=== PATIENT | male | born 1940 | race Caucasian/White ===

== ENCOUNTER → 2016-09-13 | Outpatient (REF) | payer MEDICARE, OTHER ==
[~2016-09-13] MED LIST: /GLIP10TAB OR; /PANT40TA OR; /WARF25TA OR; ACET65TA OR; ALBU17IN2 IN; ALLO100T OR; ASPI81TA83 OR; BABY81CH OR; COLA100C2 OR; CRES20TA OR; CRES40TA OR; DIOV80TA OR; HYDROCORTISONE TOP; JANUVIA PO; LASI40TA OR; LIDO5DIS EX; LOPR50TA OR; METO50TA4 OR; PERC5TAB8 OR; SYMB80AE INH; TOPR50TA OR; TRIC145T19 OR; VICO5TAB OR; VITA100T OR
== END ==
LOC: M LAB REF 10:35
PROVIDERS: ATTEND Surgery
DX: R19.7 Diarrhea, unspecified (principal)

== ENCOUNTER → 2016-09-25 | Outpatient (CLI) | payer MEDICARE, OTHER ==
[~2016-09-25] MED LIST changes: +ANDR4DIS TD; +ASPI1TAB PO; +CLOB0.0526 EX; +COLA100C3 PO; +COUM2.5T11 PO; +CYAN1000VL IM; +EUCR2OIN EX; +FENO145T PO; +GLIP10TA6 PO; +LASI40TA PO; +LIDO1PAD EX; +METO-207 PO; +PROT1TAB2 PO; +ROBA500T PO; +ROSU20TA PO; +SILD20TA11 PO; +SITA50TAB PO; +SYMB16INH INH; +TYLE325T5 PO; +VALS80TA PO
[2016-09-25 13:29] LABS: CALCIUM LEVEL 8.9 MG/DL (8.8-10.2); CREATININE FOR GFR 1.41 MG/DL (0.70-1.30); GLOMERULAR FILTRATION RATE 52.3 (>42)
--- NOTE | 2016-09-26 20:43 | ECGEPIP ---
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 Ventricular paced rhythm, one PVC. Electronically Signed On 09-26-2016 20:43:32 EDT by Vinod Mcneill
== END ==
LOC: M LAB 12:27
PROVIDERS: ATTEND Ophthalmology
DX: H25.12 Age-related nuclear cataract, left eye (principal); E11.9 Type 2 diabetes mellitus without complications

== ENCOUNTER → 2016-09-25 | Outpatient (REF) | payer MEDICARE, OTHER ==
[~2016-09-25] MED LIST changes: +WARF-18 PO
== END ==
LOC: M SMT 13:04
PROVIDERS: ATTEND Nurse Practitioner Family
DX: N39.41 Urge incontinence (principal); H25.12 Age-related nuclear cataract, left eye; E11.9 Type 2 diabetes mellitus without complications
CPT/HCPCS: 36415; 51798; 80048; 81001; 87086; 93005; G0463

== ENCOUNTER → 2016-09-26 | Outpatient (CLI) | payer MEDICARE, OTHER ==
[~2016-09-26] VITALS: Ht 190.5 cm; Wt 117.9 kg
[~2016-09-26] MED LIST changes: +NS 1,000 ML IV ONE; +PROPOFOL 200 MG/20 ML VIAL As Ordered ONE; -WARF-18 PO
--- NOTE | 2016-09-26 09:57 | ROOR ---
Patient Name: Anthony Gauthier Procedure Date: 09/26/2016 9:26 AM Date of : 1940 Age: 76 Room: [facility] Gender: Male Note Status: Finalized Procedure: Colonoscopy Indications: Chronic diarrhea Providers: Baljit Noble Jr, MD Referring MD: Eula Hartman DO Requesting Provider: Medicines: Propofol per Anesthesia Complications: No immediate complications. Procedure: Pre-Anesthesia Assessment: - Prior to the procedure, a History and Physical was performed, and patient medications and allergies were reviewed. The patient is competent. The risks and benefits of the procedure and the sedation options and risks were discussed with the patient. All questions were answered and informed consent was obtained. Patient identification and proposed procedure were verified by the physician and the nurse in the pre-procedure area and in the procedure room. Mental Status Examination: alert and oriented. Airway Examination: normal oropharyngeal airway and neck mobility. Respiratory Examination: clear to auscultation. CV Examination: normal. ASA Grade Assessment: II - A patient with mild systemic disease. After reviewing the risks and benefits, the patient was deemed in satisfactory condition to undergo the procedure. The anesthesia plan was to use moderate sedation / analgesia (conscious sedation). Immediately prior to administration of medications, the patient was re-assessed for adequacy to receive sedatives. The heart rate, respiratory rate, oxygen saturations, blood pressure, adequacy of pulmonary ventilation, and response to care were monitored throughout the procedure. The physical status of the patient was re-assessed after the procedure. The Colonoscope was introduced through the anus and advanced to the cecum, identified by appendiceal orifice and ileocecal valve. The colonoscopy was performed without difficulty. The patient tolerated the procedure well. The quality of the bowel preparation was adequate and fair. Findings: The perianal exam findings include non-thrombosed external hemorrhoids, non-thrombosed internal hemorrhoids, internal hemorrhoids that prolapse with straining, but spontaneously regress to the resting position (Grade II) and internal hemorrhoids that prolapse with straining, but require manual replacement into the anal canal (Grade III). Multiple small and large-mouthed diverticula were found in the sigmoid colon and descending colon. Many small and large-mouthed diverticula were found in the transverse colon and ascending colon. The rectum, recto-sigmoid colon, appendiceal orifice and ileocecal valve appeared normal. A small polyp was found in the ascending colon. The polyp was removed with a jumbo cold forceps. Resection and retrieval were complete. Impression: - Preparation of the colon was fair. - Non-thrombosed external hemorrhoids, non-thrombosed internal hemorrhoids, internal hemorrhoids that prolapse with straining, but spontaneously regress to the resting position (Grade II) and internal hemorrhoids that prolapse with straining, but require manual replacement into the anal canal (Grade III) found on perianal exam. - Diverticulosis in the sigmoid colon and in the descending colon. - Diverticulosis in the transverse colon and in the ascending colon. - The rectum, recto-sigmoid colon, appendiceal orifice and ileocecal valve are normal. - One small polyp in the ascending colon, removed with a jumbo cold forceps. Resected and retrieved. Recommendation: - Repeat colonoscopy in 5-10 years for surveillance based on pathology results. Baljit Noble MD Baljit Noble Jr, MD 09/26/2016 9:57:02 AM This report has been signed electronically. Number of Addenda: 0 Note Initiated On: 09/26/2016 9:26 AM Estimated Blood Loss: Estimated blood loss: none.
[2016-09-26 10:15] VITALS: BP 169/89
== END | disposition home or self-care (01) ==
LOC: M OPP 08:16
PROVIDERS: ATTEND Surgery
DX: R19.7 Diarrhea, unspecified (principal); D12.2 Benign neoplasm of ascending colon; K64.2 Third degree hemorrhoids; K64.1 Second degree hemorrhoids; K64.4 Residual hemorrhoidal skin tags; K57.30 Diverticulosis of large intestine without perforation or abscess without bleeding; I48.91 Unspecified atrial fibrillation; I25.10 Atherosclerotic heart disease of native coronary artery without angina pectoris; I12.9 Hypertensive chronic kidney disease with stage 1 through stage 4 chronic kidney disease, or unspecified chronic kidney disease; E78.5 Hyperlipidemia, unspecified; R60.0 Localized edema; E11.9 Type 2 diabetes mellitus without complications; K74.60 Unspecified cirrhosis of liver; R12 Heartburn; M19.90 Unspecified osteoarthritis, unspecified site; M54.9 Dorsalgia, unspecified; M25.60 Stiffness of unspecified joint, not elsewhere classified; Z86.73 Personal history of transient ischemic attack (TIA), and cerebral infarction without residual deficits; J44.9 Chronic obstructive pulmonary disease, unspecified; G47.30 Sleep apnea, unspecified; R06.83 Snoring; R06.02 Shortness of breath; N18.9 Chronic kidney disease, unspecified; Z95.5 Presence of coronary angioplasty implant and graft; Z95.810 Presence of automatic (implantable) cardiac defibrillator; F17.210 Nicotine dependence, cigarettes, uncomplicated; Z79.01 Long term (current) use of anticoagulants; Z79.84 Long term (current) use of oral hypoglycemic drugs; Z79.899 Other long term (current) drug therapy

== ENCOUNTER → 2016-10-10 | Day surgery (SDC) | payer MEDICARE, OTHER ==
[~2016-10-10] VITALS: Ht 190.5 cm; Wt 117.9 kg
[~2016-10-10] MED LIST changes: +ACETYLCHOLINE OPHTH SOLN 1% 2ML (MIOCHOL-E) As Ordered ONE; +BALANCED SALT IRRIGATION SOLUTION 500ML BAG (FOR OR EYE MACHINE) As Ordered ONE; +CEFUROXIME 1MG/0.1ML INTRACAMERAL INJ As Ordered ONE; +CYCLOPENTOLATE 2% OPHTH SOLN 2ML BTL OS SCH; +HEALON DUET (HEALON 10MG/ML 0.55ML & HEALON ENDOCOAT 30MG/ML 0.85ML) As Ordered ONE; +LIDOCAINE 0.75%/EPINEPHRINE 0.025% IN BSS 1ML SYR INTRACAMERAL (OR ONLY) As Ordered ONE; +LR 500 ML IV ONE; +MIDAZOLAM INJ 2 MG/2 ML VIAL (J2250) As Ordered ONE; -NS 1,000 ML IV ONE; +OFLOXACIN 0.3 % (OCUFLOX) OPTH SOL 5ML OS ONE; +PHENYLEPHRINE 2.5% OPHTH SOL 2ML OS ONE; +POVIDONE-IODINE 5% OPHTH PREP SOL 30ML As Ordered ONE; +PROPARACAINE 0.5% OPHTH SOL 15ML OS ONE; -PROPOFOL 200 MG/20 ML VIAL As Ordered ONE; +TOBRADEX OPHTH OINT 3.5 GM As Ordered ONE; +TROPICAMIDE 1% OPHTH SOLN 2ML OS ONE; +WARF-18 PO; +fentaNYL 100 MCG/2 ML INJECTION (J3010) As Ordered ONE
[2016-10-10 10:20] VITALS: BP 138/63
--- NOTE | 2016-10-11 08:00 | RO ---
DATE OF PROCEDURE: 10/10/2016 PREOPERATIVE DIAGNOSIS: Visually significant nuclear sclerotic cataract left eye. POSTOPERATIVE DIAGNOSIS: Visually significant nuclear sclerotic cataract left eye. PROCEDURE: Cataract extraction with use of phacoemulsification, and placement of intraocular lens, AU00T0, 19.0 Diopter, left eye. SURGEON: Sky Cook DO ENVIRONMENTAL MONITORING SPECIALIST: ANESTHESIA: Local with monitored anesthesia care (MAC). COMPLICATIONS: None. POSTOPERATIVE CONDITION: Stable. INDICATION FOR SURGERY: Blurred vision left eye affecting patient's activities of daily living. DESCRIPTION OF PROCEDURE: The patient was seen in the preoperative area and properly identified. The correct operative eye was identified and marked. Attention was turned to that eye. The patient received topical antibiotics in the preoperative area. The patient then received topical dilating drops consisting of Tropicamide and Phenylephrine. The patient was then transferred to the operating room. The correct side was re-identified. The patient received topical anesthetics and antibiotics on the surface of the eye. The eye was prepped and draped in a sterile fashion. The upper and lower eyelids were isolated with Tegaderm tape, and the lids were held open with an adjustable speculum. Using a sideport blade, a paracentesis incision was made. Intraocular preservative-free lidocaine was then injected into the anterior chamber. Viscoelastic was then injected into the anterior chamber through the paracentesis. Using a 2.6 mm sharp-tipped keratome, the anterior chamber was entered via a temporal clear corneal incision. A continuous curvilinear capsulorrhexis was created with the aid of a 26g cystotome and utrata forceps. Hydrodissection was performed with balanced salt solution (BSS) on a blunt cannula until the nucleus was freely mobile. The crystalline lens was phacoemulsified and aspirated. Additional cohesive viscoelastic was placed into the capsular bag to deepen it. AU00T0, 19.0 Diopter lens was placed into the capsular bag and confirmed by visualizing the continuous curvilinear capsulorrhexis. Additional irrigation and aspiration was used to remove cortical material and remaining viscoelastic. The clear corneal incision was hydrated with BSS on a blunt cannula. The lens was well positioned. The incisions were then tested for leaks and found to be negative. The eye was then palpated for appropriate pressure and adjusted accordingly with BSS. The eyelid speculum was carefully removed. A shield was placed over the eye. The patient tolerated the procedure well and was discharged to the recovery unit in a stable condition. YANG
== END | disposition home or self-care (01) ==
LOC: M SDC 07:51
PROVIDERS: ATTEND Ophthalmology
DX: H25.12 Age-related nuclear cataract, left eye (principal); I48.91 Unspecified atrial fibrillation; I25.10 Atherosclerotic heart disease of native coronary artery without angina pectoris; I50.9 Heart failure, unspecified; I10 Essential (primary) hypertension; Z98.61 Coronary angioplasty status; Z95.0 Presence of cardiac pacemaker; Z95.810 Presence of automatic (implantable) cardiac defibrillator; J44.9 Chronic obstructive pulmonary disease, unspecified; E78.5 Hyperlipidemia, unspecified; Z79.01 Long term (current) use of anticoagulants; Z79.899 Other long term (current) drug therapy
CPT/HCPCS: 66984; J2250; J3010; V2632

== ENCOUNTER → 2016-10-31 | Day surgery (SDC) | payer MEDICARE, OTHER ==
[~2016-10-31] VITALS: Ht 193 cm; Wt 117.9 kg
[~2016-10-31] MED LIST changes: -ACETYLCHOLINE OPHTH SOLN 1% 2ML (MIOCHOL-E) As Ordered ONE; +ASPI325T PO; -BALANCED SALT IRRIGATION SOLUTION 500ML BAG (FOR OR EYE MACHINE) As Ordered ONE; -CEFUROXIME 1MG/0.1ML INTRACAMERAL INJ As Ordered ONE; -COLA100C3 PO; +COLA100C5 PO; +COUM1TAB17 PO; -COUM2.5T11 PO; +COUM2.5T17 PO; +CRES40TA PO; -CYCLOPENTOLATE 2% OPHTH SOLN 2ML BTL OS SCH; +DICL1GEL TD; +GLIP1TAB51 PO; -HEALON DUET (HEALON 10MG/ML 0.55ML & HEALON ENDOCOAT 30MG/ML 0.85ML) As Ordered ONE; +K-TA10TA2 PO; -LIDOCAINE 0.75%/EPINEPHRINE 0.025% IN BSS 1ML SYR INTRACAMERAL (OR ONLY) As Ordered ONE; -LR 500 ML IV ONE; -METO-207 PO; +METO1TAB7 PO; +NIAC1TAB PO; +NITR0.4S14 SL; -OFLOXACIN 0.3 % (OCUFLOX) OPTH SOL 5ML OS ONE; -PHENYLEPHRINE 2.5% OPHTH SOL 2ML OS ONE; -POVIDONE-IODINE 5% OPHTH PREP SOL 30ML As Ordered ONE; -PROPARACAINE 0.5% OPHTH SOL 15ML OS ONE; -TOBRADEX OPHTH OINT 3.5 GM As Ordered ONE; +TRIC145T22 PO; -TROPICAMIDE 1% OPHTH SOLN 2ML OS ONE; +oxygen
[2016-10-31] MEDS: PHENYLEPHRINE 2.5% OPHTH SOL 2ML OD ONE (14:12)
[2016-10-31] MEDS: OFLOXACIN 0.3 % (OCUFLOX) OPTH SOL 5ML OD ONE (14:12)
[2016-10-31] MEDS: TROPICAMIDE 1% OPHTH SOLN 2ML OD ONE (14:12)
[2016-10-31] MEDS: PROPARACAINE 0.5% OPHTH SOL 15ML OD ONE (14:12)
[2016-10-31] MEDS: LR 500 ML IV ONE (14:13)
[2016-10-31] MEDS: BALANCED SALT IRRIGATION SOLUTION 500ML BAG (FOR OR EYE MACHINE) As Ordered ONE (14:32)
[2016-10-31] MEDS: ACETYLCHOLINE OPHTH SOLN 1% 2ML (MIOCHOL-E) As Ordered ONE (14:35)
[2016-10-31] MEDS: CEFUROXIME 1MG/0.1ML INTRACAMERAL INJ As Ordered ONE (14:35)
[2016-10-31] MEDS: LIDOCAINE 0.75%/EPINEPHRINE 0.025% IN BSS 1ML SYR INTRACAMERAL (OR ONLY) As Ordered ONE (14:35)
[2016-10-31] MEDS: POVIDONE-IODINE 5% OPHTH PREP SOL 30ML As Ordered ONE (14:35)
[2016-10-31] MEDS: DUOVISC (0.50ML VISCOAT/0.55ML PROVISC) OPHTH KIT As Ordered ONE (14:36)
[2016-10-31 15:30] VITALS: BP 191/94
--- NOTE | 2016-11-04 16:32 | RO ---
DATE OF PROCEDURE: 10/31/2016 PREOPERATIVE DIAGNOSIS: Visually significant nuclear sclerotic cataract right eye. POSTOPERATIVE DIAGNOSIS: Visually significant nuclear sclerotic cataract right eye. PROCEDURE: Cataract extraction with use of phacoemulsification, and placement of intraocular lens, AU00T0, 19.5D, right eye. SURGEON: Sky Cook DO MANAGER OF MEDICAL: ANESTHESIA: Local with monitored anesthesia care (MAC). COMPLICATIONS: None. POSTOPERATIVE CONDITION: Stable. INDICATION FOR SURGERY: Blurred vision right eye affecting patient's activities of daily living. DESCRIPTION OF PROCEDURE: The patient was seen in the preoperative area and properly identified. The correct operative eye was identified and marked. Attention was turned to that eye. The patient received topical antibiotics in the preoperative area. The patient then received topical dilating drops consisting of Tropicamide and Phenylephrine. The patient was then transferred to the operating room. The correct side was re-identified. The patient received topical anesthetics and antibiotics on the surface of the eye. The eye was prepped and draped in a sterile fashion. The upper and lower eyelids were isolated with Tegaderm tape, and the lids were held open with an adjustable speculum. Using a sideport blade, a paracentesis incision was made. Intraocular preservative-free lidocaine was then injected into the anterior chamber. Viscoelastic was then injected into the anterior chamber through the paracentesis. Using a 2.6 mm sharp-tipped keratome, the anterior chamber was entered via a temporal clear corneal incision. A continuous curvilinear capsulorrhexis was created with the aid of a 26g cystotome and utrata forceps. Hydrodissection was performed with balanced salt solution (BSS) on a blunt cannula until the nucleus was freely mobile. The crystalline lens was phacoemulsified and aspirated. Additional cohesive viscoelastic was placed into the capsular bag to deepen it. An AU00T0, 19.5D lens was placed into the capsular bag and confirmed by visualizing the continuous curvilinear capsulorrhexis. Additional irrigation and aspiration was used to remove cortical material and remaining viscoelastic. The clear corneal incision was hydrated with BSS on a blunt cannula. The lens was well positioned. The incisions were then tested for leaks and found to be negative. The eye was then palpated for appropriate pressure and adjusted accordingly with BSS. The eyelid speculum was carefully removed. A shield was placed over the eye. The patient tolerated the procedure well and was discharged to the recovery unit in a stable condition. YANG
== END | disposition home or self-care (01) ==
LOC: M SDC 13:03
PROVIDERS: ATTEND Ophthalmology
DX: H25.11 Age-related nuclear cataract, right eye (principal); E11.39 Type 2 diabetes mellitus with other diabetic ophthalmic complication; I12.9 Hypertensive chronic kidney disease with stage 1 through stage 4 chronic kidney disease, or unspecified chronic kidney disease; H35.30 Unspecified macular degeneration; I48.91 Unspecified atrial fibrillation; I25.10 Atherosclerotic heart disease of native coronary artery without angina pectoris; E78.00 Pure hypercholesterolemia, unspecified; R60.0 Localized edema; M10.9 Gout, unspecified; K76.9 Liver disease, unspecified; K21.9 Gastro-esophageal reflux disease without esophagitis; M12.9 Arthropathy, unspecified; M54.9 Dorsalgia, unspecified; R29.898 Other symptoms and signs involving the musculoskeletal system; R06.83 Snoring; R06.02 Shortness of breath; G47.30 Sleep apnea, unspecified; F17.290 Nicotine dependence, other tobacco product, uncomplicated; N18.3 Chronic kidney disease, stage 3 (moderate); E11.21 Type 2 diabetes mellitus with diabetic nephropathy; J44.1 Chronic obstructive pulmonary disease with (acute) exacerbation; I13.0 Hypertensive heart and chronic kidney disease with heart failure and stage 1 through stage 4 chronic kidney disease, or unspecified chronic kidney disease; I50.22 Chronic systolic (congestive) heart failure; Z79.899 Other long term (current) drug therapy; Z79.01 Long term (current) use of anticoagulants; Z86.73 Personal history of transient ischemic attack (TIA), and cerebral infarction without residual deficits; Z87.81 Personal history of (healed) traumatic fracture; Z95.5 Presence of coronary angioplasty implant and graft; Z95.810 Presence of automatic (implantable) cardiac defibrillator
CPT/HCPCS: 66984; J2250; J3010; V2632

== ENCOUNTER → 2016-11-07 | Outpatient (CLI) | payer MEDICARE, OTHER ==
[~2016-11-07] MED LIST changes: -MIDAZOLAM INJ 2 MG/2 ML VIAL (J2250) As Ordered ONE; -fentaNYL 100 MCG/2 ML INJECTION (J3010) As Ordered ONE
== END ==
LOC: M SMT PRO 09:50
PROVIDERS: ATTEND Urology
DX: N52.9 Male erectile dysfunction, unspecified (principal)
CPT/HCPCS: 54235; 93980; G0463

== ENCOUNTER 2016-11-17 18:23 | Inpatient (IN) | payer MEDICARE, OTHER ==
[~2016-11-17] VITALS: Ht 193 cm; Wt 117.1 kg
[2016-11-17] MEDS: ROSUVASTATIN 10 MG TAB (CRESTOR) PO SCH (02:00)
[~2016-11-17 18:23] MED LIST changes: -ASPI325T PO; -COUM1TAB17 PO; -CRES40TA PO; -DICL1GEL TD; -GLIP1TAB51 PO; -K-TA10TA2 PO; -NIAC1TAB PO; -NITR0.4S14 SL; -TRIC145T22 PO; -oxygen
[2016-11-17] MEDS ORDERED: K-TA10TA2 PO (18:42)
[2016-11-17] MEDS ORDERED: GLIP1TAB51 PO (18:42)
[2016-11-17] MEDS ORDERED: NITR0.4S14 SL (18:52)
[2016-11-17] MEDS ORDERED: CRES40TA PO (18:52)
[2016-11-17] MEDS ORDERED: TRIC145T22 PO (18:52)
[2016-11-17] MEDS ORDERED: oxygen (18:52)
[2016-11-17] MEDS ORDERED: NIAC1TAB PO (18:52)
[2016-11-17] MEDS ORDERED: ASPI1TAB PO (18:52)
[2016-11-17] MEDS ORDERED: COUM2.5T17 PO (18:52)
--- NOTE | 2016-11-17 19:20 | REPUSA ---
CT of the head Clinical history: Headache. Protocol: Multiple axial CT images obtained with 5 mm slice thickness were obtained through the head without administration of contrast. Findings: The ventricles and sulci are symmetric but prominent in size bilaterally. There are periven tricular areas of low attenuation throughout the deep white matter. There is no evidence of acute hem orrhage or infarct. There is no midline shift, mass effect, or extra-axial fluid collection. The osse ous structures are unremarkable. The visualized paranasal sinuses and mastoid air cells are clear. Impression: No acute hemorrhage or infarct. Findings are consistent with mild age-related atrophy and chronic small vessel ischemic disease.
[2016-11-17 19:24] LABS: EOS # 0.1 K/mm3 (0.0-0.50); LARGE UNSTAINED CELL # 0.1 K/mm3 (0.0-0.4); LARGE UNSTAINED CELL % 2.6 % (0.0-4.0); LYMPH # 1.4 K/mm3 (1.5-4.5); LYMPH % 24.6 % (24.0-44.0); MEAN CORPUSCULAR HEMOGLOBIN 32.8 pg (27.0-33.0); MEAN CORPUSCULAR HGB CONC 35.2 g/dl (32.0-36.5); MEAN CORPUSCULAR VOLUME 93.4 fl (80.0-96.0); MONO # 0.4 K/mm3 (0.0-0.8); MONO % 7.7 % (0.0-5.0); NEUTROPHILS # 3.2 K/mm3 (1.8-7.7); NEUTROPHILS % 62.1 % (36.0-66.0); PLATELET COUNT, AUTOMATED 202 k/mm3 (150-450); RED CELL DISTRIBUTION WIDTH 14.4 % (11.5-14.5); WHITE BLOOD COUNT 5.2 K/mm3 (4.0-10.0)
[2016-11-17 19:30] LABS: INR 1.32
[2016-11-17 19:44] LABS: ANION GAP 9 MEQ/L (8-16); BLOOD UREA NITROGEN 19 MG/DL (7-18); CALCIUM LEVEL 9.3 MG/DL (8.8-10.2); CARBON DIOXIDE LEVEL 26 MEQ/L (21-32); CHLORIDE LEVEL 101 MEQ/L (98-107); CREATININE FOR GFR 1.58 MG/DL (0.70-1.30); GLOMERULAR FILTRATION RATE 45.9 (>42); GLUCOSE, FASTING 134 MG/DL (83-110); POTASSIUM SERUM 3.3 MEQ/L (3.5-5.1); SODIUM LEVEL 136 MEQ/L (136-145)
[2016-11-17] MEDS ORDERED: ISOVUE-370 76% 100ML VIAL (Q9967) As Ordered ONE (20:20)
[2016-11-17] MEDS: HumaLOG INSULIN (NovoLOG) PER UNIT SC SCH (21:00)
[2016-11-17] MEDS: SYMBICORT 160/4.5MCG INHALER 6GM INH SCH (21:00)
[2016-11-17] MEDS ORDERED: DICL1GEL TD (21:07)
--- NOTE | 2016-11-17 21:20 | REPUSA ---
Clinical history: CVA. Technique: Multiple axial CT images were obtained through the head after a bolus of nonionic intraven ous contrast. Coronal and sagittal reconstructed images were also obtained. Findings: The intracerebral arterial structures including the [place] demonstrate normal hilda iber and contour. There is no evidence of aneurysm, stenosis, or thrombosis. No abnormal enhancing ma ss lesions are seen within the brain. The ventricles and sulci are symmetric bilaterally. There is no midline shift, mass effect, or extra-axial fluid collection. The osseous structures are unremarkable . The visualized paranasal sinuses and mastoid air cells are clear. Impression: Unremarkable CT angiogram of the head.
[2016-11-17] MEDS ORDERED: WARFARIN SOD 5 MG TAB PO ONE (23:00)
[2016-11-17] MEDS ORDERED: GLUCOSE 4 GM CHEW TABLET PO PRN (23:00)
[2016-11-17] MEDS ORDERED: NS 1,000 ML IV SCH (23:00)
[2016-11-17] MEDS ORDERED: GLUCAGON FOR INJ 1 MG VIAL (J1610) SC PRN (23:00)
[2016-11-17] MEDS ORDERED: DEXTROSE 50% 50 ML SYRINGE IV PRN (23:00)
[2016-11-17] MEDS ORDERED: POTASSIUM CHLORIDE 10 MEQ SR TABLET PO ONE (23:15)
[2016-11-17 23:58] LABS: T UPTAKE 36 % (33-40); THYROXINE (T4) 6.9 UG/DL (4.5-12.0)
[2016-11-18] VITALS (17 sets, daily range): BP systolic 147–195; BP diastolic 67–84; O2SAT 95–99
[2016-11-18] MEDS: ASPIRIN 325 MG TAB PO SCH ×2 (00:02→08:30)
--- NOTE | 2016-11-18 02:25 | HPE ---
DATE OF ADMISSION: 11/17/2016 PRIMARY CARE PROVIDER: Mike Thomas MD. CHIEF COMPLAINT: Expressive aphasia, unable to express himself, altered mental status. HISTORY OF PRESENT ILLNESS: This is a 76-year-old gentleman with underlying medical history of obstructive sleep apnea not complaint with continuous positive airway pressure (CPAP) at home, but is on 5 liters of oxygen at night, coronary arterial disease, atrial fibrillation, with ventricular pacemaker and automatic implantable cardioverter-defibrillator (AICD) function, on Coumadin and aspirin at home, diabetes type 2, dyslipidemia, hypertension, carotid artery disease, chronic kidney disease (CKD) stage III, and gout. Patient presented with acute onset about 2 p.m. earlier in the day of episodes of unable to express himself while having lunch with friends and having beer, did not feel well. Subsequently went home to take a nap and called his sister, who discussed about coming to the hospital. Emergency medical services (EMS) was called and the patient was actually brought here to the hospital by family. Patient reported similar episode 5 years ago with a diagnosis of transient ischemic attack (TIA). In the emergency room, patient remained to be aphasic. Telemedicine stroke center was called. Dr. Luis was called and by the time patient was evaluated, patient has already been 6 hours and 30 minutes out of the window. CT angiography of the head was also done. Patient remained mildly aphasic, but symptom seems to be improving. Denies any motor weakness. Denies any chest pain, pressure or discomfort. Denies any palpitations. Neurology, Dr. Trimble was called. We discussed whether to place the patient on heparin drip or not given patient is subtherapeutic on INR. Dr. Trimble elected to put the patient on full-dose aspirin and dose the Coumadin and followup INR levels. Given the possibility of acute CVA, recommended against putting the patient on heparin drip. ALLERGIES: No known drug allergies. PAST MEDICAL HISTORY: 1. Obstructive sleep apnea on 5 liters of oxygen at night, not using CPAP. 2. Epigastric and umbilical hernia. 3. Coronary arterial disease. 4. Atrial fibrillation. 5. Ventricular pacemaker with AICD and cardiac stents. 6. Diabetes type 2. 7. Obesity. 8. Dyslipidemia. 9. Hypertension. 10. Carotid artery disease. 11. CKD stage III. 12. History of TIA. 13. History of gout. PAST SURGICAL HISTORY: 1. Right hip replacement. 2. Excision of right hip seroma. 3. Cardiac stent. 4. Epigastric and umbilical hernia repair. 5. Right shoulder surgery. 6. Vasectomy. 7. Right carpal tunnel surgery. SOCIAL HISTORY: Smokes cigars for 15 years. Drinks about 1-2 beers per night. Lives at home alone. FAMILY HISTORY: Father from coronary arterial disease at age 50s. Mother from stroke in her 70s. REVIEW OF SYSTEMS: Reported a bit of aphasia, having trouble expressing himself. Otherwise, all other review of systems has been negative. HOME MEDICATIONS: - aspirin 81 mg by mouth daily - Symbicort 160/4.5 inhalation twice a day - cyanocobalamin 1000 mcg intramuscularly (IM) once a month - diclofenac 3% gel transdermally nightly - TriCor 145 mg by mouth daily - Lasix 40 mg by mouth daily as needed - glipizide extended release by mouth twice a day - metoprolol succinate 50 mg by mouth daily - niacin extended release 500 mg by mouth daily - nitroglycerin one tablet sublingual as needed for chest pain - Protonix 40 mg by mouth daily - Crestor 40 mg by mouth daily - sildenafil 20 mg by mouth as needed - Januvia 50 mg by mouth daily - valsartan 80/12.5 mg by mouth twice a day - Coumadin 2.5 mg by mouth Friday, Friday, , Friday PHYSICAL EXAMINATION: VITAL SIGNS: Temperature 96.3, pulse 84, respirations 18, blood pressure 157/73, pulse oximetry 94% on room air. GENERAL: Patient alert and oriented times three, having mild trouble finding words, in no acute distress. HEENT: Normocephalic, atraumatic, obese. PULMONARY: Distant breath sounds, clear to auscultation. CARDIAC: Regular S1, S2. ABDOMEN: Obese, soft, nontender. Positive bowel sounds. EXTREMITIES: No edema bilateral lower extremities. NEUROLOGICAL: Cranial nerves II-XII grossly intact. Having trouble finding words. Finger to nose intact. Bilateral upper and lower motor strength 5/5 symmetrical. Sensation to light touch intact. LABORATORY: WBC 5.2, hemoglobin and hematocrit 14.9/42.5, platelets 202. Chemistry: Sodium 136, potassium 3.2, chloride 101, bicarbonate 26, BUN 19, creatinine 1.58. A1c 6.9. Troponin, cardiac enzymes are negatives times one. TSH 4.83 with a free T4 2.5. INR 1.32. CT scan of the head shows no acute hemorrhage or infarct. Findings consistent with mild age related atrophy and small vessel ischemic disease. CT angiography unremarkable. EKG shows V paced at 73. ASSESSMENT AND PLAN: This is a 76-year-old male patient with underlying medical history of coronary arterial disease, atrial fibrillation, ventricular pacemaker, automatic implantable cardioverter-defibrillator (AICD), with cardiac stents, history of transient ischemic attack (TIA), obstructive sleep apnea on 5 liters of oxygen at night, not on continuous positive airway pressure (CPAP), umbilical hernia, diabetes type 2, dyslipidemia, hypertension, carotid artery disease, right carpal tunnel surgery, chronic kidney disease (CKD), who presented with expressive aphasia, admitted for CVA likely. 1. Expressive aphasia likely secondary to CVA. Telemetry. Cardiac enzymes. Echocardiogram. Neurology, Dr. Trimble consulted. Neurologic checks. Unable to perform MRI given patient has a pacemaker. Repeat CT scan tomorrow. Followup echocardiogram. Carotid Dopplers. CT angiography appreciated. Initially, telemedicine stroke center was contacted. Patient not a candidate for tissue plasminogen activator (tPA). Intravenous (IV) fluids given patient received contrast. Physical therapy, speech and swallow. Permissive hypertension with a goal blood pressure of 140-160 systolic. Followup A1c, lipid panel. Continue aspirin 325. Coumadin 5 mg has been given. Heparin subcutaneously for deep venous thrombosis (DVT) prophylaxis and continue TriCor and statin. Case discussed with Dr. Trimble. Elect not to do heparin drip for anticoagulation given patient possibly has active stroke and risk of intracranial hemorrhage. 2. Hypokalemia. Supplement potassium. 3. Hypertension. Given the possibility of active CVA, will hold patient's hydrochlorothiazide. Continue valsartan. Blood pressure goal of 140-160 systolic and 80-100 diastolic. Continue metoprolol with holding parameter as well. 4. Type 2 diabetes with obesity. Holding oral medications. Insulin as per protocol. 5. Dyslipidemia. Continue statin. 6. Obstructive sleep apnea. Obstructive sleep apnea (LISA) protocol. Continuous pulse oximetry. Oxygen supplementation as needed. 7. Carotid artery disease. Carotid Doppler. Will consult vascular as needed. 8. CKD. Patient has received a dose of contrast. Followup BUN and creatinine. Intravenous (IV) fluids have been ordered for renal protective. 9. Atrial fibrillation. Continue beta sanya. Telemetry. Coumadin dosage has been increased. Followup international normalized ratio (INR). 10. DVT prophylaxis. Heparin subcutaneously. DISPOSITION PLANNING: Neurologic checks. Stroke workup. Physical therapy. Speech and swallow. Neurology consultation. Repeat CT scan. Carotid Doppler and echocardiogram. Pending clinical improvement. Will follow INR.
[2016-11-18] MEDS: amLODIPine 5 MG TAB PO SCH ×2 (04:41→08:29)
[2016-11-18] MEDS: HEPARIN SOD (PORCINE) 5000 UNITS/ML VIAL SQ SCH ×3 (05:40→21:15)
[2016-11-18 06:05] LABS: MEAN CORPUSCULAR HEMOGLOBIN 32.5 pg (27.0-33.0); MEAN CORPUSCULAR HGB CONC 34.7 g/dl (32.0-36.5); MEAN CORPUSCULAR VOLUME 93.7 fl (80.0-96.0); RED CELL DISTRIBUTION WIDTH 14.3 % (11.5-14.5); WHITE BLOOD COUNT 5.3 K/mm3 (4.0-10.0)
[2016-11-18 06:25] LABS: ANION GAP 9 MEQ/L (8-16); BLOOD UREA NITROGEN 19 MG/DL (7-18); CALCIUM LEVEL 8.8 MG/DL (8.8-10.2); CARBON DIOXIDE LEVEL 26 MEQ/L (21-32); CHLORIDE LEVEL 103 MEQ/L (98-107); CHOLESTEROL LEVEL 123 MG/DL (<200); GLOMERULAR FILTRATION RATE 52.7 (>42); GLUCOSE, FASTING 114 MG/DL (83-110); MAGNESIUM LEVEL 1.7 MG/DL (1.8-2.4); POTASSIUM SERUM 3.5 MEQ/L (3.5-5.1); SODIUM LEVEL 138 MEQ/L (136-145); TRIGLYCERIDES LEVEL 390 MG/DL (<150)
[2016-11-18] MEDS ORDERED: **hydrALAZINE HCL** 25 MG TAB As Ordered ONE (06:29)
[2016-11-18] MEDS: **hydrALAZINE HCL** 25 MG TAB PO SCH ×4 (06:34→23:55)
[2016-11-18] MEDS: SYMBICORT 160/4.5MCG INHALER 6GM INH SCH ×2 (07:15→20:28)
[2016-11-18] MEDS: HumaLOG INSULIN (NovoLOG) PER UNIT SC SCH ×4 (07:30→21:00)
--- NOTE | 2016-11-18 07:42 | REP ---
PORTABLE CHEST: AP portable view of the chest is performed and compared to a prior study of 01/13/2016. There are old healed right rib fractures. There is chronic fibrotic change in the lung bases without evidence of acute infiltrate or pulmonary edema. There is cardiomegaly. There is calcification and tortuosity with ectasia of a thoracic aorta. A left pacemaker is again noted. IMPRESSION: Chronic changes with cardiomegaly. No evidence of acute infiltrate. Signed by Leonard Pierre MD 11/18/2016 01:10 P
[2016-11-18] MEDS ORDERED: IPRATROPIUM 0.5MG/ALBUTEROL 2.5MG INH SOL UD 3ML (DUONEB)(J7620) NEB PRN (07:45)
[2016-11-18] MEDS ORDERED: MAG SULF 1GM/100ML (MAG RUN) 1 GM in APPROPRIATE DILUENT 1 EA IV ONE (08:00)
[2016-11-18] MEDS ORDERED: POTASSIUM CHLORIDE 10 MEQ SR TABLET PO ONE (08:00)
[2016-11-18] MEDS ORDERED: NITROGLYCERIN 2% OINT 1 GM *U/D* PKT TOP SCH ×2 (08:00→09:00)
--- NOTE | 2016-11-18 08:23 | ECGEPIP ---
Stationary ECG Study 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
[2016-11-18] MEDS: METOPROLOL SUCC (TopROL XL) 50MG **XL** TAB PO SCH (08:28)
[2016-11-18] MEDS: ROSUVASTATIN 10 MG TAB (CRESTOR) PO SCH (08:28)
[2016-11-18] MEDS: FENOFIBRATE 145 MG TAB (TRICOR) PO SCH (08:29)
[2016-11-18] MEDS: VALSARTAN 80 MG TAB (DIOVAN) PO SCH (08:30)
[2016-11-18] MEDS: PANTOPRAZOLE 40MG TAB (PROTONIX) PO SCH (08:30)
[2016-11-18] MEDS: IPRATROPIUM HFA INHALER 12.9 GRAMS (ATROVENT HFA) INH SCH ×4 (09:00→20:28)
[2016-11-18] MEDS ORDERED: amLODIPine 5 MG TAB PO ONE (10:00)
--- NOTE | 2016-11-18 11:48 | REP ---
REASON: History of CVA. COMPARISON: 11/17/2016 Since the last examination, an area of decreased density has developed in the left parietal lobe measuring approximately 4.4 x 3.8 cm as maximal dimensions. There is no shift of the midline structures. There is no evidence of an acute hemorrhagic event. There is no change in the appearance of the ventricles. There is no change in the skull. The paranasal sinuses and mastoid air cells are again seen to be clear. IMPRESSION: Acute/subacute nonhemorrhagic left parietal lobe infarction, as described above. Signed by Raza Dugan DO 11/18/2016 01:22 P
--- NOTE | 2016-11-18 13:09 | REP ---
Bilateral carotid artery duplex ultrasound: Peak flow velocity analysis: RIGHT LEFT ICA. Peak flow velocity cm/sec 47 67 ICA Diastolic flow velocity cm/sec 5.8 12.6 ICA/CCA Ratio 0.62 1.11 There is shallow atheromatous plaque in the distal common carotid artery on the right extending into the bulb and proximal ICA and ECA. On the left, there is an asymmetric plaque in the common carotid artery extending into the bulb and proximal ICA. There is minimal atheromatous plaque in the left ECA. The peak flow velocities are normal bilaterally. The findings indicate there is less than 50% narrowing bilaterally. There is no significant stenosis on the right or the left. There is antegrade flow in the vertebral arteries bilaterally. Signed by Leonard Farnsworth MD 11/18/2016 12:59 P
--- NOTE | 2016-11-18 13:29 | IPN ---
DATE OF SERVICE: 11/18/2016 Time the patient was seen was at 9 a.m. The patient has been seen and examined at the bedside. The patient admits to improved speech. Denies any trouble swallowing. Denies any weakness on any side of his body. Denies any blurry vision, headaches, any tunnel vision. Denies any chest pain, trouble breathing, abdominal pain, nausea, vomiting, diarrhea, or constipation. Denies any problem with urination. Denies any other current new complaints. PHYSICAL EXAMINATION: VITAL SIGNS: Temperature was 97, pulse 88, respiration 20, blood pressure 154/73, oxygen saturating at 99% on room air. GENERAL: The patient is a morbidly obese elderly male who was alert, awake, oriented times three. Sitting up comfortably in his bed. HEENT: Normocephalic, atraumatic. Extraocular motor intact. Mucosa moist. NECK: Supple. No neck lymphadenopathy. CARDIOVASCULAR: Regular rate and rhythm. Normal S1, S2. Difficult to auscultate due to increased AP diameter and the body habitus. LUNGS: Clear to auscultation bilaterally. No wheezes, rales, or rhonchi. ABDOMEN: Positive bowel sounds. Soft, nontender. No peritoneal signs. No ecchymosis. EXTREMITIES: No edema, clubbing. or cyanosis. SKIN: Warm and dry. NEUROLOGIC: Cranial nerves II-XII intact. The patient, however, does have reduced coordination on the entire left side with [id number]-mq-ddxz and abgj-pj-efym, worse on the left side. LABORATORIES: WBC 5.3, hemoglobin 13.9, hematocrit is 40.2, and platelet count of 190, MCV of 93.7. Sodium 138, potassium 3.5, chloride 103, bicarbonate 26, anion gap 9, BUN 19, creatinine 1.4, GFR 52.7, fasting glucose 114, calcium 8.3, magnesium 1.7, CK 62 , CK-MB 1, troponin less than 0.02, triglycerides was elevated at 390, total cholesterol was 123, LDL 10, non-HDL 88, total HDL 35 which was low, pufohsqgtio-oq-JFK ratio 3.5. No new cultures. The patient had a CT of the head this morning. Official result is pending. Preliminary result shows acute versus subacute nonhemorrhagic left parietal lobe infarction. This is a change from CT head yesterday at 8 p.m. ASSESSMENT AND PLAN: A 76-year-old male with a past medical history most significantly more hypertension, noncompliant obstructive sleep apnea, coronary artery disease, paroxysmal atrial fibrillation, currently on automatic implantable cardioverter-defibrillator (AICD) and cardiac stents, noninsulin-dependent type 2 diabetes, chronic kidney disease stage III, history of transient ischemic attacks (TIAs) and gout, presented with: 1. Expressive aphasia secondary to cerebrovascular accident (CVA). Initial CT of the head yesterday did not show any acute findings. However, repeat CT scan this morning shows acute verus subacute nonhemorrhagic left parietal lobe infarction. Currently, the patient is on warfarin 5 mg by mouth daily with Tricor 145 mg by mouth daily. Also, aspirin 325 mg by mouth daily, Crestor 40 mg by mouth daily. Dr. Trimble was consulted yesterday from neurology. Will follow his recommendations. At this point, will keep the patient at therapeutic hypertension with systolic blood pressure plus/minus 10 with a goal of 160. 2. History of hypertension. Will keep the patient's blood pressure goal of 160. Continue metoprolol with valsartan. The patient's hydrochlorothiazide has been on hold. Norvasc has been increased from 5 to 10 mg. The patient also has hydralazine with hold parameters. 3. Noninsulin-dependent type 2 diabetes. Continue insulin sliding scale and continue to hold by mouth medications. 4. Dyslipidemia. Lipid panel has been repeated. It shows the patient is within goal. Will continue statin. 5. Obstructive sleep apnea. The patient is noncompliant with continuous positive airway pressure (CPAP) at home. Continue 5 liters of nasal cannula oxygen at night. The patient refuses to wear a mask. 6. Carotid artery disease. Carotid Doppler has been ordered. Will followup. Will consult vascular surgery as needed. 7. Chronic kidney disease stage III, stable. Continue to monitor. 8. Chronic atrial fibrillation. On beta sanya and also warfarin. Continue to monitor international normalized ratio (INR). 9. Coronary artery disease with cardiomyopathy, status post AICD. Continue to monitor. 10. Deep venous thrombosis (DVT) prophylaxis with heparin due to the patient's warfarin is not therapeutic. Will discontinue subcutaneous heparin once INR is within 2-3. DISPOSITION: Will continue to follow neurology recommendations. The patient's symptoms have improved significantly. Will continue home warfarin. Continue to monitor blood pressure closely and investigate etiology of the stroke. Carotid US pending. PM&R screening, PT/OT initiated. The patient has been discussed with attending doctor, Dr. Rubi. I have both independently examined this patient as well as reviewed the dictated note. I have discussed in detail with the resident the findings and plan of treatment as documented in the residents note. I will continue to follow the patient and offer further guidance to the patients care as necessary during this hospital stay. YANG
[2016-11-18] MEDS ORDERED: SLF 3 ML SYR IV PRN (16:00)
[2016-11-18] MEDS ORDERED: WARFARIN SOD 5 MG TAB PO SCH (17:00)
[2016-11-18] MEDS: SLF 3 ML SYR IV SCH (21:15)
[2016-11-19] VITALS (12 sets, daily range): BP systolic 137–153; BP diastolic 72–77; O2SAT 1–100
[2016-11-19 05:39] LABS: MEAN CORPUSCULAR HGB CONC 34.8 g/dl (32.0-36.5); MEAN CORPUSCULAR VOLUME 94.8 fl (80.0-96.0); RED CELL DISTRIBUTION WIDTH 14.4 % (11.5-14.5); WHITE BLOOD COUNT 4.4 K/mm3 (4.0-10.0)
[2016-11-19] MEDS: HEPARIN SOD (PORCINE) 5000 UNITS/ML VIAL SQ SCH ×3 (06:02→22:04)
[2016-11-19] MEDS: SLF 3 ML SYR IV SCH ×3 (06:02→22:00)
[2016-11-19] MEDS: **hydrALAZINE HCL** 25 MG TAB PO SCH ×4 (06:02→23:51)
[2016-11-19 06:44] LABS: CALCIUM LEVEL 8.9 MG/DL (8.8-10.2); CREATININE FOR GFR 1.31 MG/DL (0.70-1.30); GLOMERULAR FILTRATION RATE 56.9 (>42); POTASSIUM SERUM 3.8 MEQ/L (3.5-5.1)
[2016-11-19] MEDS: IPRATROPIUM HFA INHALER 12.9 GRAMS (ATROVENT HFA) INH SCH ×4 (07:20→20:39)
[2016-11-19] MEDS: SYMBICORT 160/4.5MCG INHALER 6GM INH SCH ×2 (07:21→20:38)
[2016-11-19] MEDS: HumaLOG INSULIN (NovoLOG) PER UNIT SC SCH ×4 (08:16→21:00)
[2016-11-19] MEDS: METOPROLOL SUCC (TopROL XL) 50MG **XL** TAB PO SCH (08:16)
[2016-11-19] MEDS: PANTOPRAZOLE 40MG TAB (PROTONIX) PO SCH (08:17)
[2016-11-19] MEDS: amLODIPine 10 MG TAB PO SCH (08:17)
[2016-11-19] MEDS: VALSARTAN 80 MG TAB (DIOVAN) PO SCH (08:17)
[2016-11-19] MEDS: ASPIRIN 325 MG TAB PO SCH (08:17)
[2016-11-19] MEDS: ROSUVASTATIN 10 MG TAB (CRESTOR) PO SCH (08:17)
[2016-11-19] MEDS: FENOFIBRATE 145 MG TAB (TRICOR) PO SCH (08:17)
[2016-11-19] MEDS ORDERED: COUM1TAB17 PO (08:32)
[2016-11-19] MEDS ORDERED: ASPI325T PO (08:32)
--- NOTE | 2016-11-19 08:48 | CR ---
DATE OF CONSULTATION: 11/18/2016 REQUESTING PHYSICIAN: Alicja Davey MD REASON FOR CONSULTATION: Expressive aphasia. HISTORY OF PRESENT ILLNESS: Anthony Gauthier is a 76-year-old man with history of obstructive sleep apnea syndrome with nocturnal hypoxemia, atrial fibrillation, coronary artery disease with pacemaker and defibrillator placement, who has been on Coumadin. He states that he does not take aspirin. The patient states that he was scheduled to have cataract surgeries. He had cataract surgeries on his both eyes over 1-2 weeks. He was advised to stop Coumadin. He started taking Coumadin last Friday, which was 7 days ago. He did not start Coumadin until 3 days after his last cataract surgery, and he took Coumadin only 4 days a week like he was taking before. Yesterday, he develops difficulty with speech, which lasted for 20 minutes. He felt out of it for 1 hour. He was brought to [facility] by his family. His symptoms have resolved. When he was in the emergency department, telemedicine stroke center at [facility] was called, and the patient was already 6-1/2 hours into his stroke symptoms. No tissue plasminogen activator (TPA) was given. His international normalized ratio (INR) was 1.32. The patient denies any headaches, neck or back pain. The patient feels back to his normal self. He wants to go home tomorrow. I have advised him that I would not recommend discharge until his INR is therapeutic. I have also advised him to take aspirin 81 mg by mouth daily. PAST MEDICAL HISTORY: Obstructive sleep apnea syndrome with nocturnal hypoxemia. The patient uses only 5 liters of oxygen at night. Coronary artery disease, atrial fibrillation, pacemaker, and automatic implantable cardioverter-defibrillator (AICD) placement, coronary angioplasty, type 2 diabetes, obesity, dyslipidemia, hypertension, chronic kidney disease stage III, history of transient ischemic attack (TIA) and gout, right hip replacement, cardiac stents, hernia repair, right shoulder surgery, vasectomy, right carpal tunnel surgery. SOCIAL HISTORY: He smokes cigars. He drinks one or two beers per night. 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 FAMILY HISTORY: Father had coronary artery disease. Mother had stroke. REVIEW OF SYSTEMS: All systems were reviewed and were found to be noncontributory except as mentioned in the history of present illness. HOME MEDICATIONS: - He is supposed to be on aspirin 81 mg by mouth daily but admits that he does not take it. - Coumadin - Symbicort - vitamin B12 - Tricor - Lasix - glipizide - metoprolol - nitroglycerin - Protonix - Crestor - Viagra - Januvia - losartan PHYSICAL EXAMINATION: Blood pressure 148/82, pulse 69, temperature 97.2, respiratory 18, heart irregularly irregular. Lungs: Clear to auscultation. No pedal edema. Abdomen: Soft, nontender, nondistended. No gross musculoskeletal abnormalities. Deep tendon reflexes are 1+ in arms and knees and absent at ankles. Ears, nose, throat examination is within normal limits. The patient is awake, alert, oriented to place, person, and time. Normal speech, comprehension, and repetition. Extraocular muscles are intact. No facial weakness. Tongue and uvula are midline. 5/5 strength in all four extremities. He has decreased cold pinprick vibration sensation in his feet. His gait is mildly unsteady. DIAGNOSTIC STUDIES: CT scan of his head was reviewed and showed an acute/subacute left frontal and parietal ischemic stroke. Carotid ultrasound showed less than 50% bilateral carotid artery stenosis. His INR is 1.32. ASSESSMENT: 1. Left frontal and parietal acute/subacute ischemic stroke. 2. Atrial fibrillation. 3. Coronary artery disease. 4. History of pacemaker and automatic implantable cardioverter-defibrillator (AICD) placement. PLAN: 1. Coumadin 5 mg by mouth nightly until his INR is therapeutic between 2-3. Xarelto or Eliquis should also be considered on outpatient basis. We do not want to start them now due to risk of increased bleeding into stroke. 2. Aspirin 81 mg by mouth daily. 3. The patient will follow with his primary care physician and vp respiratory. 4. The patient will follow with our office in 4-5 weeks after hospital discharge.
[2016-11-19 09:37] LABS: INR 1.69
--- NOTE | 2016-11-19 10:23 | ECGEPIP ---
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
--- NOTE | 2016-11-19 11:13 | IPN ---
DATE OF SERVICE: 11/19/2016 Time the patient was seen was this morning at 8:45. The patient has been seen and examined at the bedside. No acute events overnight. The patient is feeling better today. He has been cleared by both physical therapy (PT) and occupational therapy (OT). The patient has improved coordination of the left side today. Denies any headache, any dizziness, any blurred vision, trouble swallowing, any loss of balance. Denies any other current new complaints. The patient is eager to go home. PHYSICAL EXAMINATION: VITAL SIGNS: Temperature 97.7, pulse 74, respiration 18, blood pressure 158/68, oxygen was saturating at 98% on room air. GENERAL: The patient is a morbidly obese elderly male who was alert, awake, oriented times three. Does not appear to be in distress. Lying comfortably in bed with head elevated at 30 degrees. HEENT: Normocephalic, atraumatic. Extraocular motor intact. Mucosa moist. NECK: Supple. No neck lymphadenopathy. CARDIOVASCULAR: Regular rate and rhythm. Distant heart sounds due to increased AP diameter and body habitus. LUNGS: Clear to auscultation bilaterally. No wheezes, rales, or rhonchi. ABDOMEN: Positive bowel sounds. Soft, nontender. No ecchymosis. EXTREMITIES: No edema, clubbing, or cyanosis. SKIN: Warm and dry. NEUROLOGIC: Cranial nerves II-XII intact. Vrtgdj-hk-ymzs shows improved coordination compared to the day before. The patient's mtdr-cu-mniz test has also improved, as well. LABORATORIES: WBC 4.4, hemoglobin 13.9, hematocrit 39.8, with a platelet count of 184.. Sodium 136, potassium 3.8, chloride 103, bicarbonate 26, BUN 16, creatinine 1.3, GFR 56.9, with a fasting glucose 134, calcium 8.9, magnesium 2. The patient's PT was 20.4, INR 1.69, still not therapeutic yet. Accu-Chek glucose overnight was 115, 220. There is no culture. The patient did have a carotid Doppler duplex yesterday. Shows there are less than 50% narrowing bilaterally. No significant stenosis right or left side. ASSESSMENT AND PLAN: A 76-year-old male with a past medical history most significant for hypertension, noncompliant obstructive sleep apnea on 5 liters of oxygen at night, coronary artery disease, paroxysmal atrial fibrillation, and also on automatic implantable cardioverter-defibrillator (AICD) with cardiac stents, noninsulin-dependent type 2 diabetes, chronic kidney disease stage III, history of transient ischemic attacks (TIAs) and gout, presented with: 1. Left frontal and parietal acute/subacute ischemic stroke. Continue Coumadin. The patient's international normalized ratio (INR) is subtherapeutic. Will increase Coumadin from 5 mg to 7.5 mg for tonight; and according to Dr. Tran, Xarelto and Eliquis should be considered on an outpatient basis. However, will not start them right now due to risk of increased bleeding into the stroke. Dr. 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 2. Hypertension. Appears to be uncontrolled. The patient stated that at home, his blood pressure systolic ranges 160-180s. Will restart the patient's home medications today and will adjust the blood pressure medication accordingly once the patient is discharged. 3. Noninsulin-dependent type 2 diabetes. Continue insulin sliding scale. 4. Dyslipidemia. The patient's low-density lymphocyte (LDL) level appears to be at goal. Continue statin. 5. Obstructive sleep apnea. The patient is noncompliant on continuous positive airway pressure (CPAP) at home. Continue 5 liters nasal cannula at night. 6. Carotid artery disease. Carotid Doppler has been ordered. It does not show significant stenosis. 7. Chronic kidney disease stage III, appears to be stable. 8. Chronic atrial fibrillation. On beta sanya and also on warfarin. Continue to monitor international normalized ratio (INR) until therapeutic. 9. Coronary artery disease with cardiomyopathy and status post AICD. Continue to monitor. 10. Deep venous thrombosis (DVT) prophylaxis. On warfarin and also aspirin. Will discontinue subcutaneous heparin once INR is therapeutic. DISPOSITION: Today, the patient's INR was not therapeutic. Therefore, will likely discharge the patient in the next day. Warfarin has been increased slightly. The patient will likely need to monitor INR once the patient is at home. The patient has been cleared by PT and OT. The patient has been discussed with attending doctor, Dr. Schilling. My preceptor for this patient encounter was Dr. Virgilio Schilling. The preceptor was physically present in the building during the encounter and was fully available. As needed, all aspects of the patient interview, examination, medical decision making process, and medical care plan development were reviewed and approved by the preceptor. The preceptor is aware and concurs with the plan as stated in the body of this note and will attest to such by his/her cosignature.
[2016-11-19] MEDS ORDERED: WARFARIN SOD 7.5 MG TAB PO SCH (17:00)
--- NOTE | 2016-11-19 23:48 | ECHO ---
DATE OF PROCEDURE: 11/19/2016 REFERRING PHYSICIAN: Dr. Alicja Davey INDICATION: Acute stroke. HEIGHT: 193 cm WEIGHT: 118 kg 2D MEASUREMENTS: Ventricular septum: 1.25 cm Posterior wall: 1.29 cm Left ventricle diastole: 5.0 cm Left atrium: 4.5 cm Aortic root: 3.9 cm Aortic annulus: 2.9 cm DOPPLER MEASUREMENTS: Aortic valve velocity: 130 cm/s LVOT velocity: 76.7 cm/s LVOT VTI: 13.4 cm Very mild mitral regurgitation. Mitral E velocity: 72.6 cm/s Mitral deceleration time: 201 ms Mild tricuspid regurgitation. Estimated right ventricle systolic pressure: 30 mmHg assuming a right atrial pressure of 5 mmHg Pulmonary artery systolic pressure: 16 mmHg by pulmonary acceleration time method. DESCRIPTION: Rhythm was probably underlying atrial fibrillation and otherwise ventricular paced rhythm. This was a moderately technically difficult echocardiogram. CONCLUSIONS: 1. Mild concentric left ventricle hypertrophy. Normal LV wall motion and wall thickening. No regional wall motion abnormalities of the left ventricle. No apparent paradoxical septal motion by visual assessment. No paradoxical septal motion by M-mode on the parasternal long axis. Unable to adequately assess LV diastolic function in the setting of atrial fibrillation. 2. Mild left atrial dilatation. 3. Mild dilatation of aortic root at the level of the sinuses of Valsalva. 4. Mild mitral annular calcification. Very mild mitral regurgitation. 5. Mild right atrial dilatation by visual assessment. Normal right ventricle size and systolic function. 6. Atherosclerotic atheroma visible involving the aortic root at the level of the sinotubular junction. 7. Mild aortic valve sclerosis of a 3-cuspid aortic valve. No aortic regurgitation. 8. Cardiac rhythm security management specialist, most likely a pacemaker lead, seen in the right ventricle.
[2016-11-20 06:00] VITALS: BP 147/77
[2016-11-20] MEDS: SLF 3 ML SYR IV SCH (06:00)
[2016-11-20 06:45] LABS: MEAN CORPUSCULAR HEMOGLOBIN 32.2 pg (27.0-33.0); MEAN CORPUSCULAR HGB CONC 33.7 g/dl (32.0-36.5); MEAN CORPUSCULAR VOLUME 95.6 fl (80.0-96.0); RED CELL DISTRIBUTION WIDTH 14.4 % (11.5-14.5); WHITE BLOOD COUNT 4.6 K/mm3 (4.0-10.0)
[2016-11-20] MEDS: **hydrALAZINE HCL** 25 MG TAB PO SCH (06:45)
[2016-11-20] MEDS: HEPARIN SOD (PORCINE) 5000 UNITS/ML VIAL SQ SCH (06:45)
[2016-11-20 06:59] LABS: CALCIUM LEVEL 8.9 MG/DL (8.8-10.2); CREATININE FOR GFR 1.28 MG/DL (0.70-1.30); GLOMERULAR FILTRATION RATE 58.5 (>42)
[2016-11-20] MEDS: SYMBICORT 160/4.5MCG INHALER 6GM INH SCH (07:31)
[2016-11-20] MEDS: IPRATROPIUM HFA INHALER 12.9 GRAMS (ATROVENT HFA) INH SCH (07:31)
[2016-11-20 08:18] LABS: INR 2.09
[2016-11-20] MEDS: HumaLOG INSULIN (NovoLOG) PER UNIT SC SCH (08:22)
[2016-11-20] MEDS: ROSUVASTATIN 10 MG TAB (CRESTOR) PO SCH (08:23)
[2016-11-20] MEDS: METOPROLOL SUCC (TopROL XL) 50MG **XL** TAB PO SCH (08:23)
[2016-11-20] MEDS: PANTOPRAZOLE 40MG TAB (PROTONIX) PO SCH (08:23)
[2016-11-20] MEDS: VALSARTAN 80 MG TAB (DIOVAN) PO SCH (08:23)
[2016-11-20 08:24] VITALS: BP 147/77
[2016-11-20] MEDS: amLODIPine 10 MG TAB PO SCH (08:24)
[2016-11-20] MEDS: FENOFIBRATE 145 MG TAB (TRICOR) PO SCH (08:24)
[2016-11-20] MEDS ORDERED: ASPIRIN 81 MG ENTERIC TAB PO SCH (09:00)
[2016-11-20 10:00] VITALS: BP 141/74
[2016-11-20] MEDS ORDERED: COUM1TAB17 PO (10:04)
--- NOTE | 2016-11-21 11:44 | DSES ---
DATE OF ADMISSION: 11/17/2016 DATE OF DISCHARGE: 11/20/2016 Time patient was seen was this morning at 8:30 a.m. ADMISSION DIAGNOSES: 1. Expressive aphasia likely secondary to cerebrovascular accident (CVA). 2. Hypokalemia. 3. Hypertension. 4. Type 2 diabetes. 5. Hyperlipidemia. 6. Obstructive sleep apnea (ILSA). 7. Coronary artery disease. 8. Chronic kidney disease. 9. History of atrial fibrillation on Coumadin. DISCHARGE DIAGNOSES: 1. Left frontal and parietal acute/subacute ischemic stroke. 2. Hypertension. 3. Noninsulin dependent type 2 diabetes. 4. Hyperlipidemia. 5. Obstructive sleep apnea (LISA). 6. Coronary artery disease. 7. Chronic kidney disease stage III. 8. Chronic atrial fibrillation. 9. Coronary artery disease status post automatic implantable cardioverter-defibrillator (AICD). CONSULTANTS: Dr. Andrey Tran, from neurology. PROCEDURES/IMAGINGS: Patient had a CT of the head on 11/17/2016 which shows no acute hemorrhage or infarct. Patient had a portable chest x-ray on the same day, shows chronic changes, no evidence of acute infiltrate. Patient had a CT angio of the head on the same day, shows unremarkable CT angio of the head. On the next day on 11/18/2016, patient had a repeat CT of the head without contrast which shows acute, subacute nonhemorrhagic left parietal lobe infarction, and on the same day the patient had a carotid Doppler duplex ultrasound which shows less than 50% narrowing bilaterally. HISTORY OF PRESENT ILLNESS: 76-year-old male with past medical history of obstructive sleep apnea (LISA), noncompliant with CPAP, on 5 liters of oxygen at night, coronary artery disease, atrial fibrillation, ventricular pacemaker and AICD, on Coumadin and aspirin at home, type 2 diabetes, dyslipidemia, hypertension, carotid artery disease, chronic kidney disease stage III, and gout who presented with acute onset about 2:00 p.m., was unable to express himself while lunch with friend and having a beer. Subsequently, patient went home and took a nap and called his sister, who discussed the morning to the hospital. Emergency medical services (EMS) was called and the patient was actually brought to the hospital by family. Patient reported a similar episode five years ago when he was diagnosed with a transient ischemic attack (TIA). While in the emergency room, the telemedicine stroke center was contacted. Dr. Ann was called by the time the patient was evaluated. At that time, patient was out of window for 6 hours [address] angio of the head was done and the patient remained mildly aphasic but symptoms seemed to be improving. Denied any motor weakness. Denied any chest pain, pressure or discomfort. Denied palpitations. Neurologist Dr. Trimble was called, discussed to place patient on heparin drip. Due to the patient's subtherapeutic INR, Dr. Trimble elected to put the patient on full dose aspirin and also increase the Coumadin and follow INR level. Given the possibility of acute CVA, recommended against putting the patient on heparin drip. HOSPITAL COURSE: On the day of admission, the patient had been placed on full dose aspirin. The patient's CT has been negative. Patient was placed nothing by mouth, neuro checks, and Coumadin. On the next day, the patient's CT came back showing left sided acute/subacute frontoparietal infarction. Patient was continued on aspirin and also Coumadin. Patient's symptoms improved. Patient also passed physical therapy and occupational therapy. The next day, the patient would like to go home, however INR was subtherapeutic, was only 1.69. Therefore, patient was kept one more day and on 11/20/2016 the patient's INR was 2.09 and he was ready to go home. DISCHARGE CONDITION: Stable. DISPOSITION: Discharged to home. DISCHARGE MEDICATIONS: New medication: - warfarin 5 mg by mouth daily Continue the following medications: - aspirin 81 mg by mouth daily - Symbicort 16/4.5 four puff inhalation twice a day - clobetasol eye drops in each eye twice a day - cyanocobalamin 1000 mcg intramuscularly monthly - diclofenac gel at bedtime - Tricor 145 mg by mouth daily - Lasix 40 mg by mouth daily as needed for fluid retention - glipizide 10 mg one tablet by mouth twice a day - metoprolol succinate 50 mg one tablet by mouth daily - niacin 500 mg one tablet by mouth daily - nitroglycerin 0.4 mg sublingual as needed every 5 minutes for chest pain - Protonix 40 mg one tablet by mouth daily - rosuvastatin 20 mg one tablet by mouth daily - rosuvastatin 40 mg one tablet by mouth daily - sildenafil 20 mg one tablet by mouth as directed - Januvia 50 mg one tablet by mouth daily - losartan hydrochlorothiazide 80/12.5 mg one tablet by mouth daily FOLLOWUP: Patient should followup with primary care provider, Dr. Coleman as soon as possible and Dr. Tran within a month. Patient should have INR checked this Friday. Script has been given to the patient, to adjust patient's Coumadin dose. ADDITIONAL INSTRUCTIONS: If the patient developed increased dizziness, weakness or aphasia, the patient should come to the emergency room or call primary care provider. Patient has been discussed with attending doctor, Dr. Schilling. My preceptor for this patient encounter was Dr. Virgilio Schilling. The preceptor was physically present in the building during the encounter and was fully available. As needed, all aspects of the patient interview, examination, medical decision making process, and medical care plan development were reviewed and approved by the preceptor. The preceptor is aware and concurs with the plan as stated in the body of this note and will attest to such by his/her cosignature.
== END 2016-11-20 11:00 | disposition home or self-care (01) | DRG 66 ==
LOC: M ED 18:23 → M ED INP 23:00 → M PCU 11-18 01:33 → M MS5PR 11-19 18:40
PROVIDERS: ADMIT Hospitalist; ATTEND Internal Medicine
DX: I63.9 Cerebral infarction, unspecified (principal); I69.120 Aphasia following nontraumatic intracerebral hemorrhage; I12.9 Hypertensive chronic kidney disease with stage 1 through stage 4 chronic kidney disease, or unspecified chronic kidney disease; E11.9 Type 2 diabetes mellitus without complications; E78.5 Hyperlipidemia, unspecified; G47.33 Obstructive sleep apnea (adult) (pediatric); I25.10 Atherosclerotic heart disease of native coronary artery without angina pectoris; E87.6 Hypokalemia; F17.290 Nicotine dependence, other tobacco product, uncomplicated; E66.9 Obesity, unspecified; N18.3 Chronic kidney disease, stage 3 (moderate); I48.2 Chronic atrial fibrillation; Z95.810 Presence of automatic (implantable) cardiac defibrillator; Z91.19 Patient's noncompliance with other medical treatment and regimen; Z99.81 Dependence on supplemental oxygen; Z79.82 Long term (current) use of aspirin; Z79.84 Long term (current) use of oral hypoglycemic drugs; Z79.899 Other long term (current) drug therapy; Z96.641 Presence of right artificial hip joint; Z98.52 Vasectomy status; Z68.31 Body mass index [BMI] 31.0-31.9, adult

== ENCOUNTER → 2016-11-22 | Outpatient (REF) | payer MEDICARE, OTHER ==
[~2016-11-22] MED LIST changes: +ASPI325T PO; +COUM1TAB17 PO; +CRES40TA PO; +DICL1GEL TD; +GLIP1TAB51 PO; +K-TA10TA2 PO; +NIAC1TAB PO; +NITR0.4S14 SL; +TRIC145T22 PO; +oxygen
[2016-11-22 14:07] LABS: INR 3.93
== END ==
LOC: M LAB REF 12:52
PROVIDERS: ATTEND Nurse Practitioner Family
DX: Z79.01 Long term (current) use of anticoagulants (principal)

== ENCOUNTER → 2016-12-10 | Outpatient (REF) | payer MEDICARE, OTHER ==
[2016-12-10 22:13] LABS: INR 5.82
== END ==
LOC: M LAB REF 16:45
PROVIDERS: ATTEND Internal Medicine
DX: Z79.01 Long term (current) use of anticoagulants (principal); I48.2 Chronic atrial fibrillation

== ENCOUNTER 2017-08-02 08:14 | Outpatient (CLI) | payer MEDICARE, OTHER ==
[2017-08-02] MEDS: MAG SULF 1GM/100ML (MAG RUN) 1 GM in APPROPRIATE DILUENT 1 EA IV ×2 (09:10→10:12)
== END 2017-08-02 11:20 | disposition home or self-care (01) ==
LOC: M OPCLI5PR 08:14 → M MS5PR 08:21 → M OPCLI5PR 11:20
DX: E83.42 Hypomagnesemia (principal); I48.2 Chronic atrial fibrillation; N18.3 Chronic kidney disease, stage 3 (moderate); R25.2 Cramp and spasm; D51.3 Other dietary vitamin B12 deficiency anemia; I13.0 Hypertensive heart and chronic kidney disease with heart failure and stage 1 through stage 4 chronic kidney disease, or unspecified chronic kidney disease; E11.21 Type 2 diabetes mellitus with diabetic nephropathy; G47.30 Sleep apnea, unspecified; I50.22 Chronic systolic (congestive) heart failure; Z79.84 Long term (current) use of oral hypoglycemic drugs; Z79.82 Long term (current) use of aspirin; Z79.891 Long term (current) use of opiate analgesic; Z79.899 Other long term (current) drug therapy
CPT/HCPCS: J3475

== ENCOUNTER 2017-08-07 13:26 | Outpatient (CLI) | payer MEDICARE, OTHER ==
[2017-08-07] MEDS: MAG SULF 1GM/100ML (MAG RUN) X 2 DOSES (2GM TOTAL) IV (14:02)
== END 2017-08-07 15:35 | disposition home or self-care (01) ==
LOC: M INFU 13:26
DX: E83.42 Hypomagnesemia (principal); Z79.84 Long term (current) use of oral hypoglycemic drugs; Z79.899 Other long term (current) drug therapy; F17.210 Nicotine dependence, cigarettes, uncomplicated; Z86.73 Personal history of transient ischemic attack (TIA), and cerebral infarction without residual deficits
CPT/HCPCS: J3475

== ENCOUNTER 2017-08-12 10:23 | Outpatient (CLI) | payer MEDICARE, OTHER ==
[2017-08-12] MEDS: MAGNESIUM SULFATE 1 GM/100 ML D5W BAG (10MG/ML) (J3475) IV ×2 (10:41→11:35)
== END 2017-08-12 12:40 | disposition home or self-care (01) ==
LOC: M INFU 10:23
DX: E83.42 Hypomagnesemia (principal); E11.9 Type 2 diabetes mellitus without complications; M12.9 Arthropathy, unspecified; F17.210 Nicotine dependence, cigarettes, uncomplicated; Z79.84 Long term (current) use of oral hypoglycemic drugs; Z79.899 Other long term (current) drug therapy
CPT/HCPCS: J3475

== ENCOUNTER 2017-08-19 09:57 | Outpatient (CLI) | payer MEDICARE, OTHER ==
[2017-08-19] MEDS: MAG SULF 1GM/100ML (MAG RUN) X 2 DOSES (2GM TOTAL) IV ×2 (10:20→11:06)
== END 2017-08-19 12:25 | disposition home or self-care (01) ==
LOC: M INFU 09:57
DX: E83.42 Hypomagnesemia (principal); M12.9 Arthropathy, unspecified; E11.9 Type 2 diabetes mellitus without complications; F17.210 Nicotine dependence, cigarettes, uncomplicated; Z86.73 Personal history of transient ischemic attack (TIA), and cerebral infarction without residual deficits; Z79.899 Other long term (current) drug therapy; Z95.5 Presence of coronary angioplasty implant and graft; Z95.810 Presence of automatic (implantable) cardiac defibrillator
CPT/HCPCS: J3475

== ENCOUNTER 2017-08-29 11:02 | Outpatient (CLI) | payer MEDICARE ==
[2017-08-29] MEDS: MAG SULF 1GM/100ML (MAG RUN) X 2 DOSES (2GM TOTAL) IV (11:39)
== END 2017-08-29 13:35 | disposition home or self-care (01) ==
LOC: M INFU 11:02
DX: E83.42 Hypomagnesemia (principal); Z79.899 Other long term (current) drug therapy; M12.9 Arthropathy, unspecified; E11.9 Type 2 diabetes mellitus without complications; F17.210 Nicotine dependence, cigarettes, uncomplicated; Z86.73 Personal history of transient ischemic attack (TIA), and cerebral infarction without residual deficits; Z95.810 Presence of automatic (implantable) cardiac defibrillator
CPT/HCPCS: J3475

== ENCOUNTER 2017-09-15 09:33 | Outpatient (CLI) | payer MEDICARE, OTHER ==
[2017-09-15] MEDS: MAGNESIUM SULFATE 1 GM/100 ML D5W BAG (10MG/ML) (J3475) IV ×2 (09:48→10:36)
== END 2017-09-15 12:00 | disposition home or self-care (01) ==
LOC: M INFU 09:33
DX: E83.42 Hypomagnesemia (principal); E11.9 Type 2 diabetes mellitus without complications; F17.210 Nicotine dependence, cigarettes, uncomplicated; Z79.84 Long term (current) use of oral hypoglycemic drugs; Z79.899 Other long term (current) drug therapy; Z86.73 Personal history of transient ischemic attack (TIA), and cerebral infarction without residual deficits; Z95.5 Presence of coronary angioplasty implant and graft; Z95.0 Presence of cardiac pacemaker
CPT/HCPCS: J3475

== ENCOUNTER 2017-10-03 09:38 | Outpatient (CLI) | payer MEDICARE ==
[2017-10-03] MEDS ORDERED: MAGNESIUM SULFATE 1 GM/100 ML D5W BAG (10MG/ML) (J3475) IV (10:00)
== END 2017-10-03 12:05 | disposition home or self-care (01) ==
LOC: M INFU 09:38
DX: E83.42 Hypomagnesemia (principal); M12.9 Arthropathy, unspecified; E11.9 Type 2 diabetes mellitus without complications; F17.210 Nicotine dependence, cigarettes, uncomplicated; Z79.899 Other long term (current) drug therapy; Z86.73 Personal history of transient ischemic attack (TIA), and cerebral infarction without residual deficits; Z95.810 Presence of automatic (implantable) cardiac defibrillator
CPT/HCPCS: 96365

== ENCOUNTER 2017-10-09 11:51 | Outpatient (CLI) | payer MEDICARE ==
[2017-10-09 12:34] LABS: HEMATOCRIT 44.4 % (42.0-52.0); HEMOGLOBIN 14.7 g/dl (13.5-17.5); MEAN CORPUSCULAR HEMOGLOBIN 30.7 pg (27.0-33.0); MEAN CORPUSCULAR HGB CONC 33.1 g/dl (32.0-36.5); MEAN CORPUSCULAR VOLUME 92.7 fl (80.0-96.0); PLATELET COUNT, AUTOMATED 263 10^3/uL (150-450); RED BLOOD COUNT 4.79 10^6/uL (4.30-6.10); RED CELL DISTRIBUTION WIDTH 13.3 % (11.5-14.5); WHITE BLOOD COUNT 8.6 10^3/uL (4.0-10.0)
[2017-10-09] MEDS: MAGNESIUM SULFATE 1 GM/100 ML D5W BAG (10MG/ML) (J3475) IV ×2 (12:35→12:37)
[2017-10-09 12:58] LABS: ALBUMIN 3.6 GM/DL (3.2-5.2); ALBUMIN/GLOBULIN RATIO 1.24 (1.00-1.93); ALKALINE PHOSPHATASE 49 U/L (45-117); ALT/SGPT 21 U/L (12-78); ANION GAP 9 MEQ/L (8-16); AST/SGOT 19 U/L (7-37); BILIRUBIN,TOTAL 0.5 MG/DL (0.2-1.0); BLOOD UREA NITROGEN 26 MG/DL (7-18); CALCIUM LEVEL 8.7 MG/DL (8.8-10.2); CARBON DIOXIDE LEVEL 25 MEQ/L (21-32); CHLORIDE LEVEL 109 MEQ/L (98-107); GLUCOSE, FASTING 141 MG/DL (70-100); MAGNESIUM LEVEL 1.9 MG/DL (1.8-2.4); NT-PRO BNP 1036 PG/ML (<450); POTASSIUM SERUM 4.4 MEQ/L (3.5-5.1); SODIUM LEVEL 143 MEQ/L (136-145); TOTAL PROTEIN 6.5 GM/DL (6.4-8.2)
== END 2017-10-09 14:35 | disposition home or self-care (01) ==
LOC: M INFU 11:51
DX: E83.42 Hypomagnesemia (principal); I42.9 Cardiomyopathy, unspecified; I50.9 Heart failure, unspecified; E11.9 Type 2 diabetes mellitus without complications; F17.210 Nicotine dependence, cigarettes, uncomplicated; Z79.899 Other long term (current) drug therapy; Z95.5 Presence of coronary angioplasty implant and graft; Z95.810 Presence of automatic (implantable) cardiac defibrillator
CPT/HCPCS: J3475

== ENCOUNTER → 2017-10-13 | Outpatient (REF) | payer MEDICARE ==
[2017-10-13 19:12] LABS: VITAMIN B12 LEVEL 693 PG/ML
== END ==
LOC: M LAB REF 18:07
DX: R25.2 Cramp and spasm (principal)
CPT/HCPCS: 82746

== ENCOUNTER → 2017-10-27 | Outpatient (REF) | payer MEDICARE ==
[2017-10-28 13:57] LABS: TOTAL PROTEIN,RANDOM URINE 16.5 MG/DL (0.0-12.0)
== END ==
LOC: M LAB REF 12:50
DX: N18.3 Chronic kidney disease, stage 3 (moderate) (principal); I12.9 Hypertensive chronic kidney disease with stage 1 through stage 4 chronic kidney disease, or unspecified chronic kidney disease
CPT/HCPCS: 82570

== ENCOUNTER → 2017-11-12 | Outpatient (CLI) | payer MEDICARE | LOC: M RAD 09:47 | DX: N18.3 Chronic kidney disease, stage 3 (moderate) (principal); I12.9 Hypertensive chronic kidney disease with stage 1 through stage 4 chronic kidney disease, or unspecified chronic kidney disease; N28.1 Cyst of kidney, acquired | CPT/HCPCS: 76775 ==

== ENCOUNTER → 2018-02-25 | Outpatient (REF) | payer MEDICARE, OTHER ==
[2018-02-25 18:38] LABS: FERRITIN 106 NG/ML (26-388); IRON (FE) 118 UG/DL (65-175); PERCENT SATURATION 32.9 % (19.7-50.0); TOTAL IRON BINDING CAPACITY 359 UG/DL (250-450)
== END ==
LOC: M LAB REF 15:46
DX: I50.23 Acute on chronic systolic (congestive) heart failure (principal)
CPT/HCPCS: 83550

== ENCOUNTER → 2018-07-21 | Outpatient (REF) | payer MEDICARE, OTHER ==
[~2018-07-21] MED LIST changes: +ELIQ2.5T PO; -FENO145T PO; +FENO145T13 PO; +GLIP10TA18 PO; -GLIP1TAB51 PO; -LASI40TA PO; +LASI40TA9 PO; -NIAC1TAB PO; +NIAC500T64 PO; -ROSU20TA PO; +ROSU20TA4 PO
[2018-07-21 14:12] LABS: BASO # 0.1 10^3/uL (0.0-0.2); BASO % 0.9 % (0.0-1.0); EOS # 0.1 10^3/uL (0.0-0.50); EOS % 1.2 % (0.0-3.0); HEMATOCRIT 43.1 % (42.0-52.0); HEMOGLOBIN 14.6 g/dl (13.5-17.5); LYMPH # 1.1 10^3/uL (1.5-4.5); LYMPH % 14.2 % (24.0-44.0); MEAN CORPUSCULAR HEMOGLOBIN 31.1 pg (27.0-33.0); MEAN CORPUSCULAR HGB CONC 33.9 g/dl (32.0-36.5); MEAN CORPUSCULAR VOLUME 91.9 fl (80.0-96.0); MONO # 0.7 10^3/uL (0.0-0.8); MONO % 8.6 % (0.0-5.0); NEUTROPHILS # 5.8 10^3/uL (1.8-7.7); NEUTROPHILS % 74.6 % (36.0-66.0); PLATELET COUNT, AUTOMATED 255 10^3/uL (150-450); RED BLOOD COUNT 4.69 10^6/uL (4.30-6.10); WHITE BLOOD COUNT 7.7 10^3/uL (4.0-10.0)
[2018-07-21 14:52] LABS: C REACTIVE PROTEIN QUANTITATIV 0.65 MG/DL (0.00-0.30); RHEUMATOID FACTOR QUANT < 10.0 IU/ML (<15.0); URIC ACID 9.3 MG/DL (3.5-7.2)
[2018-07-21 14:58] LABS: ERYTHROCYTE SEDIMENTATION RATE 18 mm/hr (0-20)
[2018-07-22 14:12] LABS: ANTINUCLEAR ANTIBODIES DIRECT Negative (Negative); Lyme Disease IgG/IgM Antibodie <0.91 ISR (0.00-0.90); Lyme Disease IgM Ab Quantitati <0.80 index (0.00-0.79)
== END ==
LOC: M LABDRAW1 13:40
PROVIDERS: ATTEND Orthopaedic Surgery
DX: S80.01XD Contusion of right knee, subsequent encounter (principal); X58.XXXD Exposure to other specified factors, subsequent encounter; Y92.89 Other specified places as the place of occurrence of the external cause

== ENCOUNTER → 2018-11-02 | Outpatient (CLI) | payer MEDICARE, OTHER ==
[~2018-11-02] MED LIST changes: -/PANT40TA OR; -/WARF25TA OR; +ASPI-1 PO; -ASPI1TAB PO; -ASPI325T PO; +ASPI81TA26 PO; +COUM1TAB18 OR; +ISOVUE-M 300 61% 15ML VIAL (Q9967) As Ordered ONE; +LIDOCAINE 1% MDV 20ML VIAL As Ordered ONE; +METO-743 OR; +PROT1TAB2 OR; -ROSU20TA4 PO; +ROSU20TA5 PO; -TOPR50TA OR
== END ==
LOC: M RADPRO 08:13
PROVIDERS: ATTEND Orthopaedic Surgery
DX: M54.5 Low back pain (principal); Z53.8 Procedure and treatment not carried out for other reasons

== ENCOUNTER → 2018-12-11 | Outpatient (CLI) | payer MEDICARE, OTHER ==
[~2018-12-11] MED LIST changes: +ASPI81TA85 PO; +E-Z-GAS II EFFERVESCENT PACKET (SODIUM BICARB./CITRIC ACID/SIMETHICONE) As Ordered ONE; +E-Z-HD 98% w/w 340GM SUSP BTL As Ordered ONE; +E-Z-PAQUE 96% w/w SUSP 176GM BTL As Ordered ONE; +HYDR25TAB PO; -ISOVUE-M 300 61% 15ML VIAL (Q9967) As Ordered ONE; -LIDOCAINE 1% MDV 20ML VIAL As Ordered ONE; +LOSA50TA88 PO; +METF500T13 PO; +MONT10TA2 PO; +POTA1TAB14 PO; +TREL1AER PO
--- NOTE | 2018-12-15 11:18 | REP ---
Examination Requested: Upper G.I. Series With KUB Reason For Exam: Dysphasia, heartburn Upper GI Air Contrast The procedure was performed by DORA Dyer, under the direct supervision of Dr. Dugan. The images were reviewed with Dr. Dugan. The truck switcher film shows no organomegaly or pathological masses. The intestinal gas pattern appears normal. Liquid barium and gas producing crystals were given in the erect position as well as liquid barium in the prone oblique position in order to perform a double contrast upper GI examination. The oral and pharyngeal stages of deglutition were unremarkable. The barium was seen to the egress the esophagus in a normal fashion, however in the mid and distal esophagus a 4.6 cm sized irregular filling defect is visualized, consistent with a mass. There there is no hiatal hernia. Gastroesophageal reflux was not visualized throughout the course of the exam. Imaging of the stomach was limited due to the patient's limited mobility. The stomach valladares are normally outlined. The duodenal valladares are normally outlined. The visualized portion of the proximal small bowel appears normal in course and caliber. Impression: 1. 4.6 cm size irregular to filling defect of the mid and distal esophagus, consistent with a mass. 0.4 minutes of fluoroscopy time was utilized for this procedure. Some fluoroscopic images are performed with last image hold technology. These images require no additional radiation. Reviewed by DORA Stuart 12/11/2018 04:38 P Electronically Signed by Raza Dugan DO 12/15/2018 11:10 A
== END ==
LOC: M RAD 10:34
PROVIDERS: ATTEND Nurse Practitioner Family
DX: R13.10 Dysphagia, unspecified (principal); R12 Heartburn

== ENCOUNTER 2018-12-21 12:55 | Day surgery (SDC) | payer MEDICARE, OTHER ==
[~2018-12-21] VITALS: Ht 190.5 cm; Wt 108.9 kg
[~2018-12-21 12:55] MED LIST changes: -E-Z-GAS II EFFERVESCENT PACKET (SODIUM BICARB./CITRIC ACID/SIMETHICONE) As Ordered ONE; -E-Z-HD 98% w/w 340GM SUSP BTL As Ordered ONE; -E-Z-PAQUE 96% w/w SUSP 176GM BTL As Ordered ONE; -FENO145T13 PO; +FENO145T7 PO; +LIDOCAINE 2% INJ 100 MG/5 ML SDV (FOR ANES.) As Ordered ONE; +NS 1,000 ML IV ONE; +propofoL 200 MG/20 ML VIAL As Ordered ONE
--- NOTE | 2018-12-21 14:40 | ROOR ---
Patient Name: Anthony Gauthier Procedure Date: 12/21/2018 2:15 PM Date of : 1940 Age: 78 Room: [facility] Gender: Male Note Status: Finalized Procedure: Upper Endoscopy + Biopsies Indications: Dysphagia, Heartburn, Abnormal UGI series, Nausea with vomiting, Weight loss Providers: Ramos Cook MD Referring MD: DOMINIQUE HERNANDEZ JR, MD Requesting Provider: Medicines: Monitored Anesthesia Care Complications: No immediate complications. Procedure: Pre-Anesthesia Assessment: - The heart rate, respiratory rate, oxygen saturations, blood pressure, adequacy of pulmonary ventilation, and response to care were monitored throughout the procedure. The Endoscope was introduced through the mouth, and advanced to the second part of duodenum. The upper GI endoscopy was accomplished without difficulty. The patient tolerated the procedure well. Findings: A large, ulcerating mass with no bleeding and no stigmata of recent bleeding was found in the mid esophagus, 32 to 35 cm from the incisors. The mass was. Biopsies were taken with a cold forceps for histology. A medium-sized hiatal hernia was present. The Z-line was irregular and was found 40 cm from the incisors. No other significant abnormalities were identified in a careful examination of the stomach. The exam of the duodenum was otherwise normal. Impression: - Esophageal tumor was found in the mid esophagus. Biopsied. - Medium-sized hiatal hernia. - Z-line irregular, 40 cm from the incisors. - The examination was otherwise normal. Recommendation: - Await pathology results. - Discharge patient to home. - Resume Eliquis (apixaban) at prior dose in 2 days. - Await pathology results. - Telephone GI clinic for pathology results in 1 week. - Perform CT scan (computed tomography) of the abdomen with contrast at appointment to be scheduled. - Perform CT scan (computed tomography) of the chest. - Perform CT scan (computed tomography) of the pelvis with contrast. - Refer to a surgeon. - The findings and recommendations were discussed with the patient's family. Ramos Cook MD Ramos Cook MD 12/21/2018 2:40:16 PM Electronically signed by Ramos Cook MD Number of Addenda: 0 Note Initiated On: 12/21/2018 2:15 PM Estimated Blood Loss: Estimated blood loss: none.
[2018-12-21 14:55] VITALS: BP 147/41
[2019-01-07] MEDS ORDERED: ELIQ5TAB PO (11:16)
[2019-01-07] MEDS ORDERED: MAGN64TASA PO (11:16)
[2019-01-07] MEDS ORDERED: CRES40TA PO (11:16)
[2019-01-07] MEDS ORDERED: ATIV1TAB7 PO (12:12)
[2019-01-15] MEDS ORDERED: PROT1TAB2 PO (12:37)
[2019-01-21] MEDS ORDERED: TRAM37.53 (12:19)
[2019-01-21] MEDS ORDERED: TRAM50TA2 PO (12:21)
[2019-01-27] MEDS ORDERED: ONDA8TAB10 PO (11:47)
[2019-01-27] MEDS ORDERED: PROC10TA4 PO (11:47)
[2019-02-02] MEDS ORDERED: TRAM50TA2 PO (10:20)
[2019-02-11] MEDS ORDERED: DECA4TAB PO (10:28)
[2019-03-11] MEDS ORDERED: DECA4TAB PO (10:09)
[2019-05-14] MEDS ORDERED: ASPI-424 PO (09:44)
[2019-05-14] MEDS ORDERED: ELIQ5TAB PO (09:44)
[2019-05-14] MEDS ORDERED: TRIA1CR80 TOP (10:46)
== END 2018-12-21 15:15 | disposition home or self-care (01) ==
LOC: M OPP 12:55
PROVIDERS: ATTEND Internal Medicine Gastroenterology
DX: D49.0 Neoplasm of unspecified behavior of digestive system (principal); K44.9 Diaphragmatic hernia without obstruction or gangrene; K22.8 Other specified diseases of esophagus; R13.10 Dysphagia, unspecified; R12 Heartburn; R11.2 Nausea with vomiting, unspecified; R63.4 Abnormal weight loss; R93.3 Abnormal findings on diagnostic imaging of other parts of digestive tract; I48.91 Unspecified atrial fibrillation; I50.9 Heart failure, unspecified; G47.30 Sleep apnea, unspecified; K57.30 Diverticulosis of large intestine without perforation or abscess without bleeding; F17.210 Nicotine dependence, cigarettes, uncomplicated; Z79.82 Long term (current) use of aspirin; Z79.84 Long term (current) use of oral hypoglycemic drugs; Z79.899 Other long term (current) drug therapy; Z86.73 Personal history of transient ischemic attack (TIA), and cerebral infarction without residual deficits; Z95.0 Presence of cardiac pacemaker

== ENCOUNTER → 2018-12-22 | Outpatient (CLI) | payer MEDICARE, OTHER ==
[~2018-12-22] MED LIST changes: +FENO145T13 PO; -FENO145T7 PO; -LIDOCAINE 2% INJ 100 MG/5 ML SDV (FOR ANES.) As Ordered ONE; -NS 1,000 ML IV ONE; -propofoL 200 MG/20 ML VIAL As Ordered ONE
--- NOTE | 2018-12-22 12:53 | REP ---
Right hand four views: There is mild demineralization. 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 Joint spaces are otherwise unremarkable. There is no fracture or dislocation. Impression: Mild demineralization. Thumb MCP mild osteoarthritis. Electronically Signed by Leonard Farnsworth MD 12/22/2018 12:44 P
--- NOTE | 2018-12-22 12:55 | REP ---
Right wrist four views: There is mild osteoarthritis of the state blow trapezial trapezoid articulation. 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 Mineralization and joint spaces otherwise are unremarkable. 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 There is no fracture or dislocation. Electronically Signed by Leonard Farnsworth MD 12/22/2018 12:46 P
== END ==
LOC: M WUC 11:35
PROVIDERS: ATTEND Physician Assistant
DX: M85.89 Other specified disorders of bone density and structure, multiple sites (principal)

== ENCOUNTER → 2018-12-23 | Outpatient (CLI) | payer MEDICARE, OTHER ==
[~2018-12-23] MED LIST changes: +ATIV1TAB7 PO; +ELIQ5TAB PO; +GASTROGRAFIN SOLUTION 30ML (Q9963) As Ordered ONE; +ISOVUE-370 76% 100ML VIAL (Q9967) As Ordered ONE; +MAGN64TASA PO
--- NOTE | 2018-12-23 12:14 | REP ---
CT of the abdomen pelvis without IV contrast, with bowel contrast: There are no comparisons. The visualized lower lung field there is circumferential wall thickening of the mid esophagus as discussed in the chest CT. The hepatic parenchyma is homogeneous. The gallbladder is unremarkable. Pancreas, spleen and adrenals are unremarkable. The unenhanced kidneys are unremarkable. Suspect there is a cyst in the upper pole of the left kidney, poorly visualized in the absence of IV contrast. The abdominal aorta is unremarkable. There is no periaortic adenopathy or mass. There is no bowel distension or obstruction. Mesentery is unremarkable. No ascites. Pelvis: There is significant beam-hardening artifact degrading image quality from the patient being scanned with arms and hands at sides. Beam-hardening reduction software is utilized. No pelvic adenopathy or ascites is identified. There is diverticulosis of the descending colon and sigmoid colon. There is no CT evidence of diverticulitis. There is a right hip arthroplasty, also adding to the beam-hardening artifact. There are no lytic, blastic or destructive skeletal changes. There is degenerative disc disease throughout the lumbar spine. 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 Impression: Circumferential wall thickening of the mid esophagus. Probable left renal upper pole cyst. No adenopathy, ascites or mass. Diverticulosis without diverticulitis. Right hip arthroplasty. Electronically Signed by Leonard Farnsworth MD 12/23/2018 11:56 A
--- NOTE | 2018-12-23 12:14 | REP ---
CT of the chest without IV contrast: There are no comparisons. There is circumferential wall thickening of the mid esophagus from the approximate T8 of the approximate T10 levels accompanied by luminal narrowing. This is compatible with neoplasm. Consider endoscopy for further evaluation. There is no mediastinal or axillary lymph node enlargement. The study is insensitive for hilar lymph node enlargement in the absence of IV contrast. There are no lung masses or nodules. There are no infiltrates or pleural effusions. The thoracic aorta is unremarkable. Cardiac size is mildly enlarged. There are no lytic, blastic or destructive skeletal changes. There is degenerative disc disease throughout the thoracic spine. Impression: Circumferential wall thickening in the mid esophagus at the approximate T8-T10 levels concerning for neoplasm. Consider endoscopy for further evaluation. There is no adenopathy. There are no lung nodules or masses. There are no infiltrates or effusions. Electronically Signed by Leonard Farnsworth MD 12/23/2018 11:40 A
== END ==
LOC: M RAD 09:09
PROVIDERS: ATTEND Internal Medicine Gastroenterology
DX: K57.30 Diverticulosis of large intestine without perforation or abscess without bleeding (principal); R93.3 Abnormal findings on diagnostic imaging of other parts of digestive tract; R13.10 Dysphagia, unspecified; R63.4 Abnormal weight loss
CPT/HCPCS: 71250; 74176; Q9963

== ENCOUNTER → 2019-01-07 | Outpatient (REF) | payer MEDICARE, OTHER ==
[~2019-01-07] MED LIST changes: -GASTROGRAFIN SOLUTION 30ML (Q9963) As Ordered ONE; -ISOVUE-370 76% 100ML VIAL (Q9967) As Ordered ONE
[2019-01-07 16:03] LABS: CHOLESTEROL RISK RATIO 5.161 (<5)
[2019-01-07 19:28] LABS: HEMOGLOBIN A1c 8.2 %
== END ==
LOC: M LAB REF 15:24
PROVIDERS: ATTEND Internal Medicine
DX: E78.00 Pure hypercholesterolemia, unspecified (principal); E11.65 Type 2 diabetes mellitus with hyperglycemia

== ENCOUNTER → 2019-01-12 | Outpatient (CLI) | payer MEDICARE, OTHER ==
[~2019-01-12] MED LIST changes: +ASPI-424 PO; +CEFD300CAP PO; +CYAN1000VL; +DECA4TAB PO; -FENO145T13 PO; +FENO145T7 PO; +ONDA8TAB10 PO; +PROC10TA4 PO; +SILD1TAB8; +SYMB80INH; +TRAM37.53; +TRAM50TA2 PO; +TRIA1CR80 TOP
--- NOTE | 2019-01-12 19:34 | REP ---
Whole body PET CT scan for staging of esophageal carcinoma: Comparisons are the chest CT dated 12/23/2018 and the abdomen/pelvis CT dated 12/23/2018. Neck and supraclavicular areas: Is a 1 cm hypermetabolic focus in the vocal cords posteriorly with a maximal standard uptake value of 6.9. There are no other hypermetabolic foci in the neck or supraclavicular areas. Chest: There is an hypermetabolic focus in the mid esophagus corresponding to the area of wall thickening on the comparison CT, with a maximal standard uptake value of 11.5. There are no other hypermetabolic foci in the chest. Abdomen, pelvis and upper thighs: There are no hypermetabolic foci. Specifically there are no hepatic or adrenal foci. There are no gastric foci. Impression: There is a 1 cm hyper volume focus in the neck or along the posterior margin of the vocal cords with a standard uptake value of 6.9. There is a hypermetabolic focus corresponding to the wall thickening of the esophagus on the comparison CT with a standard uptake value of 11.5. There are no other hypermetabolic foci. The study is performed with 8.85 mCi of F-18 FDG. Electronically Signed by Leonard Farnsworth MD 01/12/2019 07:26 P
== END ==
LOC: M PLARAD 13:15
PROVIDERS: ATTEND Internal Medicine Medical Oncology
DX: C15.8 Malignant neoplasm of overlapping sites of esophagus (principal)
CPT/HCPCS: 78815; A9552

== ENCOUNTER → 2019-01-14 | Outpatient (CLI) | payer MEDICARE, OTHER ==
[~2019-01-14] MED LIST changes: -ASPI-424 PO; -CEFD300CAP PO; -CYAN1000VL; -DECA4TAB PO; +FENO145T13 PO; -FENO145T7 PO; -ONDA8TAB10 PO; -PROC10TA4 PO; -SILD1TAB8; -SYMB80INH; -TRIA1CR80 TOP
--- NOTE | 2019-01-14 08:36 | REPVR ---
PROCEDURE INFORMATION: Exam: CT Neck Without Contrast Exam date and time: 01/14/2019 7:23 AM Clinical history: 78 years old, male; Condition or disease; Cancer; Other: Esophageal; Additional info: Esophageal CA TECHNIQUE: Imaging protocol: Computed tomography images of the neck without contrast. Radiation optimization: All CT scans at this facility use at least one of these dose optimization techniques: automated exposure control; mA and/or kV adjustment per patient size (includes targeted exams where dose is matched to clinical indication); or iterative reconstruction. COMPARISON: PT PET/CT Skull/mid thigh 01/12/2019 3:11 PM FINDINGS: Brain: Intracranial vascular calcification. Nasopharynx: Unremarkable. Oropharynx: Unremarkable. No significant tonsillar enlargement. Hypopharynx: Unremarkable Larynx: There is early marginated slightly rounded and nodular prominence/enlargement of soft tissues near the posterior midline vocal cord level slightly caudad to the level of the puriform sinuses which is of uncertain significance or etiology. This area is limited by streak artifact and presumably motion or near or immediately superior to the level of the midline posterior cricoid cartilage. Adjacent and slightly caudad accentuation of the soft tissues at the laryngeal esophagus. Retropharyngeal space: Unremarkable. Submandibular/Parotid glands: Normal. Glands are normal in size. Thyroid: Normal. No enlarged or calcified nodules. Lymph nodes: Unremarkable. No lymphadenopathy. Trachea: Visualized trachea is unremarkable. Esophagus: Air distention of the upper esophagus. Lungs: Unremarkable as visualized. Vasculature: Carotid vascular calcification with prominent tortuosity and medial deviation of the right carotid bulb and proximal internal carotid artery medial near the midline posterior to the level of the posterior pharynx and vallecula on the right. Left subclavian vascular catheter with tip not visible. Dental: Limitation by the absence of IV contrast media. Bones/joints: Degenerative change of the cervical spine. Anterior subluxation of C4 on C5. Soft tissues: Unremarkable. No significant soft tissue swelling. IMPRESSION: Ill-defined and nonspecific soft tissue prominence near or posterior to the vocal cord level which corresponds to the area demonstrated abnormal uptake on pet imaging. The significance and etiology are not determined. If the patient's condition allows a postcontrast CT may yield a high level diagnostic sensitivity and specificity for the possibility of soft tissue mass. Electronically signed by: Jaja Navarro On 01/14/2019 08:35:49 AM
== END ==
LOC: M RAD 07:03
PROVIDERS: ATTEND Internal Medicine Medical Oncology
DX: C15.9 Malignant neoplasm of esophagus, unspecified (principal)

== ENCOUNTER 2019-04-01 11:36 | Emergency (ER) | payer MEDICARE, OTHER ==
[~2019-04-01] VITALS: Ht 190.5 cm; Wt 103.2 kg
[~2019-04-01 11:36] MED LIST changes: +DECA4TAB PO; +ONDA8TAB7 PO; +PROC10TA4 PO
[2019-04-01] MEDS ORDERED: CYAN1000VL (12:00)
[2019-04-01] MEDS ORDERED: SYMB80INH (12:00)
[2019-04-01] MEDS ORDERED: SILD1TAB8 (12:00)
[2019-04-01] MEDS ORDERED: NS 1,000 ML IV ONE (12:00)
[2019-04-01 12:29] LABS: BASO # 0.1 10^3/uL (0.0-0.2); BASO % 0.4 % (0.0-1.0); HEMATOCRIT 34.7 % (42.0-52.0); LYMPH # 0.4 10^3/uL (1.5-5.0); LYMPH % 2.1 % (24.0-44.0); MEAN CORPUSCULAR HEMOGLOBIN 28.1 pg (27.0-33.0); MEAN CORPUSCULAR HGB CONC 31.7 g/dl (32.0-36.5); MEAN CORPUSCULAR VOLUME 88.7 fl (80.0-96.0); MONO # 0.7 10^3/uL (0.0-0.8); MONO % 3.6 % (0.0-5.0); NEUTROPHILS # 17.7 10^3/uL (1.5-8.5); NEUTROPHILS % 92.4 % (36.0-66.0); PLATELET COUNT, AUTOMATED 288 10^3/uL (150-450); RED BLOOD COUNT 3.91 10^6/uL (4.30-6.10); WHITE BLOOD COUNT 19.1 10^3/uL (4.0-10.0)
[2019-04-01 12:42] LABS: INR 2.32; PROTHROMBIN TIME 25.3 SECONDS (11.8-14.0)
[2019-04-01 12:43] LABS: PARTIAL THROMBOPLASTIN TIME 41.5 SECONDS (25.0-38.4)
[2019-04-01 12:53] LABS: ALBUMIN 3.1 GM/DL (3.2-5.2); ALT/SGPT 14 U/L (12-78); BILIRUBIN,DIRECT 0.5 MG/DL (0.0-0.2); BILIRUBIN,TOTAL 1.1 MG/DL (0.2-1.0); BLOOD UREA NITROGEN 20 MG/DL (7-18); CALCIUM LEVEL 8.1 MG/DL (8.8-10.2); CARBON DIOXIDE LEVEL 21 MEQ/L (21-32); CHLORIDE LEVEL 101 MEQ/L (98-107); CPK CREATINE PHOSPHOKINASE 133 U/L (39-308); GLOMERULAR FILTRATION RATE 32.9 (>42); GLUCOSE, FASTING 351 MG/DL (70-100); LIPASE 45 U/L (73-393); MB/CK RELATIVE INDEX 0.75 (< OR =4); POTASSIUM SERUM 4.1 MEQ/L (3.5-5.1); SODIUM LEVEL 133 MEQ/L (136-145); TOTAL PROTEIN 6.1 GM/DL (6.4-8.2); TROPONIN I < 0.02 NG/ML (< 0.10)
[2019-04-01] MEDS ORDERED: cefTRIAXone SOD 1 GM in D5W MINI-BAG PLUS 50 ML IV ONE (14:45)
[2019-04-01] MEDS ORDERED: CEFD300CAP PO (14:46)
[2019-04-01 15:30] VITALS: BP 158/76
--- NOTE | 2019-04-01 18:12 | ECGEPIP ---
[facility] - ED Test Date: 2019-04-01 Pat Name: DIAMOND TAYLOR Department: Room: - Gender: Male Systems Test Analyst: ct : 1940 Requested By: MACRINA Mccall Order Number: [id number] Reading MD: Haider Randhawa Measurements Intervals [place] Rate: 71 P: [place]: 0 QRS: -80 QRSD: 104 T: -9 QT: 413 QTc: 450 Interpretive Statements ELECTRONIC VENTRICULAR PACEMAKER [address] ST ELEVATION IN LEAD V2, SCARBOZZA CRITERIA FOR ACUTE INFARCTION Electronically Signed on 04-01-2019 18:12:25 EST by Haider Randhawa
== END 2019-04-01 15:36 | disposition home or self-care (01) ==
LOC: M ED 11:36
DX: N39.0 Urinary tract infection, site not specified (principal); N17.9 Acute kidney failure, unspecified; I48.91 Unspecified atrial fibrillation; G47.33 Obstructive sleep apnea (adult) (pediatric); Z79.899 Other long term (current) drug therapy; Z79.01 Long term (current) use of anticoagulants; F17.210 Nicotine dependence, cigarettes, uncomplicated
CPT/HCPCS: 36415; 80053; 81001; 82550; 82553; 83605; 83690; 83735; 84484; 85025; 85027; 85610; 85730; 87040; 87088; 87186; 93005; 93041; 96361; 96365; 99285; J0696

== ENCOUNTER → 2019-06-03 | Outpatient (REF) | payer MEDICARE, OTHER ==
[~2019-06-03] MED LIST changes: +ASPI-424 PO; +CEFD300CAP PO; +CYAN1000VL; -FENO145T13 PO; +FENO145T7 PO; +ONDA8TAB10 PO; -ONDA8TAB7 PO; +SILD1TAB8; +SYMB80INH; +TRIA1CR80 TOP
[2019-06-03 17:57] LABS: ALBUMIN 3.9 GM/DL (3.2-5.2); BILIRUBIN,DIRECT 0.2 MG/DL (0.0-0.2); BILIRUBIN,TOTAL 0.5 MG/DL (0.2-1.0); TOTAL PROTEIN 6.5 GM/DL (6.4-8.2)
== END ==
LOC: M LAB REF 16:59
PROVIDERS: ATTEND Nurse Practitioner Family
DX: N18.3 Chronic kidney disease, stage 3 (moderate) (principal); R10.11 Right upper quadrant pain

== ENCOUNTER → 2019-06-23 | Outpatient (CLI) | payer MEDICARE, OTHER ==
[~2019-06-23] MED LIST changes: +GLIP10TA PO; -MONT10TA2 PO; +MONT10TA4 PO
--- NOTE | 2019-06-23 17:03 | REP ---
PET/CT: History: Restaging esophageal carcinoma. 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 Comparisons: Comparison PET-CT study January 12, 2019. Comparison CT study of the chest December 23, 2018. TECHNIQUE: 45 minutes following the intravenous injection of a 8.82 mCi dose of F-18 FDG, three-dimensional PET scintigraphy is acquired from the skull base to the proximal thighs. Triplanar noncontrast CT scanning is acquired through the same anatomic range for attenuation correction, and image registration with scan parameters optimized to minimize radiation exposure to the patient. PET scintigraphy and CT datasets were fused and displayed on a workstation with multiplanar and projection display capability. PET/CT Findings: There is no abnormal hypermetabolic uptake in the neck soft tissues on today's PET scintigraphy images. No neck mass or adenopathy is appreciated. There is no abnormal hilar or mediastinal hypermetabolic uptake. The previously noted esophageal wall thickening and circumferential distal esophageal hypermetabolic uptake have resolved. There is no abnormal hypermetabolic uptake within the thorax. No abnormal pulmonary parenchymal uptake is seen. There is no evidence of significant pulmonary nodule. In the abdomen and pelvis, normal hepatic, splenic, gastrointestinal and genitourinary FDG accumulation is seen. There are calcifications seen in the aortocaval lymph nodes. There is no hypermetabolic adenopathy visible. There is left colonic diverticulosis. Impression: Previously noted PET scintigraphy and morphologic findings in the mid and distal esophagus have resolved. There is no abnormal hypermetabolic uptake on today's PET scintigraphy. Electronically Signed by Corbin Arroyo MD 06/23/2019 07:39 P
== END ==
LOC: M PLARAD 10:25
PROVIDERS: ATTEND Internal Medicine Medical Oncology
DX: C15.5 Malignant neoplasm of lower third of esophagus (principal)
CPT/HCPCS: 78815; A9552

== ENCOUNTER → 2019-07-26 | Outpatient (REF) | payer MEDICARE, OTHER | LOC: M LAB REF 16:57 | PROVIDERS: ATTEND Internal Medicine | DX: N18.3 Chronic kidney disease, stage 3 (moderate) (principal) ==

== ENCOUNTER → 2019-07-28 | Outpatient (CLI) | payer MEDICARE, OTHER ==
--- NOTE | 2019-07-28 09:06 | REP ---
CT STUDY LUMBAR SPINE WITHOUT CONTRAST: HISTORY: Low back pain. There is a history of esophageal carcinoma. Comparison is made with imaging from CT study of the abdomen and pelvis December 23, 2018. TECHNIQUE: Helical scanning is acquired. Axial 4 mm images are reformatted and coronal and sagittal MPR images are generated. CT FINDINGS: Digital preliminary cinema or theatre manager views demonstrate a pacemaker in an enlarged heart and multiple old bilateral rib fractures. There are degenerative changes in the lumbar spine and there appears to be a right hip prosthesis. There is straightening of the normal lumbar lordosis. There is old partial fusion or ankylosis across the anterior half of the L2-3 intervertebral disc. This is unchanged. There is degenerative disc disease in the lumbar spine at each of the other lumbar levels. There is some narrowing and bulging and osteophyte formation at the posterior margin of the L2-3 disc as well mild in degree. A vacuum phenomenon is visible in the degenerated L4-5 and L5-S1 discs. Vacuum phenomenon are also visible at T12-L1 and T11-12. There is mild anterior wedging at the L1 vertebral body which is also chronic and unchanged. There is no evidence of spondylolysis or spondylolisthesis. At L5-S1, there is mild diffuse disc bulging which subtly indents the ventral margin of the thecal sac. Facet hypertrophy is present mild in degree left greater than right. There is discogenic spurring producing neural foraminal encroachment on the left at L5-S1. At L4-5, there is diffuse posterior disc bulging. Mild to moderate central canal stenosis is noted due to this in combination with ligamentum flavum and some facet hypertrophy. There is also some dorsal epidural fat. The AP dimension of the thecal sac is 8.7 mm in the midline at L4-5. There is bilateral foraminal disc bulging and discogenic spurring producing minimal narrowing of the neural foramina. At L3-4, there is mild diffuse disc bulging. Borderline canal size is seen. Neural foramina appear adequate. Disc bulging and minimal posterior discogenic spurring is seen at L2-3. No foraminal narrowing or spinal stenosis seen. At L1-2, there is no significant disc protrusion or central canal or neural foraminal encroachment. IMPRESSION: Straightening. Degenerative spondylosis changes. Partial chronic ankylosis of the L2-3 disc anteriorly. Central canal stenosis at L4-5. Foraminal narrowing as above. Electronically Signed by Corbin Arroyo MD 07/28/2019 10:26 A
== END ==
LOC: M RAD 08:01
PROVIDERS: ATTEND Orthopaedic Surgery
DX: M48.061 Spinal stenosis, lumbar region without neurogenic claudication (principal)

== ENCOUNTER → 2019-08-26 | Outpatient (CLI) | payer MEDICARE, OTHER | LOC: M LABSMTC 12:17 | PROVIDERS: ATTEND Family Medicine | DX: Z11.59 Encounter for screening for other viral diseases (principal); Z20.828 Contact with and (suspected) exposure to other viral communicable diseases ==

== ENCOUNTER → 2019-09-07 | Outpatient (CLI) | payer MEDICARE, OTHER ==
[~2019-09-07] MED LIST changes: +GASTROGRAFIN SOLUTION 30ML (Q9963) As Ordered ONE; +ISOVUE-370 76% 100ML VIAL As Ordered ONE
--- NOTE | 2019-09-07 13:45 | REP ---
CT CHEST WITH IV CONTRAST: TECHNIQUE: Axial contrast-enhanced images from the thoracic inlet to the upper abdomen using 100 mL Isovue-370 intravenous contrast material with multiplanar reformations. COMPARISON: PET/CT 06/23/[address] 12/23/2018. Previously noted thickening of the distal esophagus appears to have essentially resolved. No visible esophageal abnormalities present. There is no evidence of axillary, mediastinal, or hilar adenopathy. There is mild cardiomegaly. There is atherosclerotic calcification of the thoracic aorta with no aneurysm or dissection. There is no pleural or pericardial effusion. There are old healed rib fractures bilaterally with no suspicious bone lesion identified. Scattered interstitial fibrotic scarring is seen bilaterally with mild bronchiectasis predominantly seen in both lower lobes. No suspicious nodular opacity is seen. IMPRESSION: Previously noted distal esophageal wall thickening appears to have essentially resolved. There are chronic fibrotic changes and bronchiectasis in both lungs. No suspicious lung nodule or lymphadenopathy. Old bilateral rib fractures. Electronically Signed by Leonard Pierre MD 09/07/2019 01:53 P
--- NOTE | 2019-09-07 13:51 | REP ---
REASON FOR EXAM: History of esophageal carcinoma. COMPARISON: Multiple, the latest is 12/23/2018. The liver, gallbladder, spleen, pancreas, adrenal glands, and kidneys are essentially unchanged. Bilateral renal cortical cysts are noted status quo. The abdominal aorta and para-aortic regions are essentially unchanged. There is no periaortic adenopathy. Calcific atherosclerotic change is seen throughout the abdominal aorta. The bowel loops and their mesenteries are within normal limits. There is no evidence of an intra-abdominal mass or adenopathy. There is no free fluid or free air. There is no evidence of an intra-abdominal mass or adenopathy. Bone window technique throughout the exam shows chronic spinal degenerative changes and old right-sided rib fractures status quo. IMPRESSION: No evidence of acute disease. Findings as described above. Electronically Signed by Raza Dugan DO 09/07/2019 02:14 P
== END ==
LOC: M RAD 11:09
PROVIDERS: ATTEND Internal Medicine Medical Oncology
DX: C15.9 Malignant neoplasm of esophagus, unspecified (principal); I51.7 Cardiomegaly
CPT/HCPCS: 71260; 74160; Q9963; Q9967

== ENCOUNTER → 2019-10-05 | Outpatient (CLI) | payer MEDICARE, OTHER ==
[~2019-10-05] MED LIST changes: -GASTROGRAFIN SOLUTION 30ML (Q9963) As Ordered ONE; -ISOVUE-370 76% 100ML VIAL As Ordered ONE; +MECL1TAB31 PO; +MELO15TA28 PO
--- NOTE | 2019-10-06 14:12 | REP ---
REASON FOR EXAM: Restaging esophageal carcinoma. COMPARISON: 01/12/2019 and 06/23/2019. The latest prior of 06/23/2019 showed no abnormal hypermetabolic activity. After the intravenous administration of 7.82 millicuries of FDG18, triplane whole body PET/CT was performed from the skull base to the mid thigh. There is no abnormal hypermetabolic activity seen in the neck, chest, abdomen, or pelvis. IMPRESSION: Negative PET/CT. Electronically Signed by Raza Dugan DO 10/06/2019 05:05 P
== END ==
LOC: M PLARAD 08:05
PROVIDERS: ATTEND Internal Medicine Medical Oncology
DX: C15.5 Malignant neoplasm of lower third of esophagus (principal)
CPT/HCPCS: 78815; A9552

== ENCOUNTER → 2019-11-25 | Outpatient (REF) | payer MEDICARE, OTHER ==
[~2019-11-25] MED LIST changes: -ASPI81TA85 PO; +ASPI81TA86 PO; +FLOM0.4C39 PO; +MAGICMW PO; +ONDA8TAB8 PO; +OXYC1SOL3 PO; +PROS5TAB PO
[2019-12-23 22:44] LABS: AMORPHOUS SEDIMENT MODERATE (NEGATIVE); APPEARANCE, URINE TURBID (CLEAR); BACTERIA, URINE AUTO NEGATIVE (NEGATIVE); BILIRUBIN, URINE AUTO NEGATIVE (NEGATIVE); BLOOD, URINE BLOOD NEGATIVE (NEGATIVE); COLOR, URINE YELLOW (YELLOW); GLUCOSE, URINE (UA) AUTO NEGATIVE (NEGATIVE); KETONE, URINE AUTO NEGATIVE (NEGATIVE); LEUKOCYTE ESTERASE, URINE AUTO NEGATIVE (NEGATIVE); NITRITE, URINE AUTO NEGATIVE (NEGATIVE); PROTEIN, URINE AUTO NEGATIVE (NEGATIVE); RBC, URINE AUTO 0 /HPF (0-3); SPECIFIC GRAVITY URINE AUTO 1.021 (1.002-1.035); SQUAMOUS EPITHELIAL CELL UR AU 0 /HPF (0-6); UROBILINOGEN, URINE AUTO 0.2 mg/dL (0.0-2.0); WBC, URINE AUTO 0 /HPF (0-3)
== END ==
LOC: M SMT 18:54
PROVIDERS: ATTEND Nurse Practitioner Family
DX: R35.0 Frequency of micturition (principal)

== ENCOUNTER → 2019-12-30 | Outpatient (REF) | payer MEDICARE, OTHER ==
[2019-12-30 14:52] LABS: APPEARANCE, URINE HAZY (CLEAR); BACTERIA, URINE AUTO NEGATIVE (NEGATIVE); BILIRUBIN, URINE AUTO NEGATIVE (NEGATIVE); BLOOD, URINE BLOOD NEGATIVE (NEGATIVE); COLOR, URINE YELLOW (YELLOW); GLUCOSE, URINE (UA) AUTO NEGATIVE (NEGATIVE); KETONE, URINE AUTO NEGATIVE (NEGATIVE); LEUKOCYTE ESTERASE, URINE AUTO NEGATIVE (NEGATIVE); MUCUS, URINE SMALL (NEGATIVE); NITRITE, URINE AUTO NEGATIVE (NEGATIVE); PROTEIN, URINE AUTO NEGATIVE (NEGATIVE); RBC, URINE AUTO 1 /HPF (0-3); SPECIFIC GRAVITY URINE AUTO 1.017 (1.002-1.035); SQUAMOUS EPITHELIAL CELL UR AU 1 /HPF (0-6); UROBILINOGEN, URINE AUTO 0.2 mg/dL (0.0-2.0); WBC, URINE AUTO 0 /HPF (0-3)
== END ==
LOC: M LAB REF 08:00
PROVIDERS: ATTEND Nurse Practitioner Family
DX: R35.0 Frequency of micturition (principal)
CPT/HCPCS: 51798; 81000; 81001; 87086; G0463

== ENCOUNTER → 2020-01-05 | Outpatient (CLI) | payer MEDICARE, OTHER ==
[~2020-01-05] MED LIST changes: +GASTROGRAFIN SOLUTION 30ML (Q9963) As Ordered ONE
--- NOTE | 2020-01-25 14:59 | REP ---
NONCONTRAST CHEST CT: 01/05/20 AT 12:25PM CLINICAL: Esophageal cancer re-evaluation/follow-up. TECHNIQUE: Axial non-contrast images from the thoracic inlet to the upper abdomen with coronal and sagittal reformations. COMPARISON: 09/07/19. FINDINGS: Evaluation of the mediastinum demonstrates relatively normal appearance to the esophagus without obvious significant wall thickening, periesophageal inflammatory stranding or significant mediastinal adenopathy. Further evaluation of the mediastinum demonstrates stable atherosclerotic changes to the thoracic aorta and coronary arteries without aortic aneurysm. No pericardial effusion. Pacemaker noted. The bilateral lung march demonstrate moderate stable emphysematous changes and mild bronchiectasis. No consolidation, significant nodule or mass lesion. No effusion. No pneumothorax. Tracheobronchial tree is patent. There is minimal chronic scarring at the lingula. Musculoskeletal structures demonstrate degenerative changes without acute osseous abnormality. IMPRESSION: 1. The esophagus appears relatively normal and the surrounding mediastinal soft tissue structures are grossly unremarkable without evidence for adenopathy or inflammatory stranding. 2. The lung march demonstrate stable chronic emphysematous changes with minimal lingular scarring. No acute mediastinal or pleural parenchymal process appreciated. 3. Atherosclerotic disease to the thoracic aorta and coronary arteries. MTDD
--- NOTE | 2020-01-25 15:00 | REP ---
NON-CONTRAST CT OF THE ABDOMEN AND PELVIS: 01/05/20 AT 12:25pm CLINICAL: Esophageal cancer for follow-up. TECHNIQUE: Axial non-contrast images from the lung bases to the pubic symphysis with coronal and sagittal reformations. COMPARISON: 09/07/19. FINDINGS: Liver, spleen, pancreas, and bilateral adrenal glands are normal for non- contrast evaluation. The findings suggest prior cholecystectomy. The kidneys demonstrate chronic age related changes and stable hypodensities suggesting simple/complex cysts. The enteric system is without obstruction or acute inflammatory process. Normal terminal ileum and appendix are identified in the right lower quadrant. Colonic and sigmoid diverticulosis noted without acute diverticulitis. The pelvis demonstrates normal bladder and age appropriate prostate/seminal vesicles. No ascites. No free air. No adenopathy. Atherosclerotic changes to the aorta and vasculature noted and without aneurysm. The musculoskeletal structures demonstrate extensive degenerative changes. Old healed right rib fractures are identified. Evidence for prior right hip replacement. IMPRESSION: 1. No acute abdominal pelvic pathology. Specifically no obvious evidence for metastasis. 2. Diverticulosis without acute diverticulitis. 3. Atherosclerotic disease to the aorta and vasculature. 4. No ascites. No adenopathy. No free air. No focal inflammatory stranding. MTDD
== END ==
LOC: M RAD 10:40
PROVIDERS: ATTEND Internal Medicine Medical Oncology
DX: C15.9 Malignant neoplasm of esophagus, unspecified (principal)
CPT/HCPCS: 71250; 74176; Q9963

== ENCOUNTER → 2020-01-12 | Outpatient (CLI) | payer MEDICARE, OTHER ==
[~2020-01-12] MED LIST changes: -GASTROGRAFIN SOLUTION 30ML (Q9963) As Ordered ONE; +ISOVUE-300 61% 50ML VIAL As Ordered ONE
--- NOTE | 2020-01-28 09:25 | REP ---
CT ARTHROGRAPHY LEFT SHOULDER WITH INTRAARTICULAR CONTRAST HISTORY: Impingement syndrome. COMPARISON: No comparison shoulder imaging. TECHNIQUE: The injection procedure was performed and dictated separately. Helical scanning was acquired. Coronal and sagittal multiplanar reformation images are generated. 3 mm axial images are reformatted. CT ARTHROGRAPHIC FINDINGS: There is good opacification of the glenohumeral articulation. No loose body is seen. There is some artifactual extravasation inferiorly adjacent to the biceps tendon sheath. This is not clinically significant. The anterior and posterior labral cartilages appear to be intact. The superior labrum shows no evidence of tear. There is contrast above the supraspinatus tendon indicating rotator cuff tear, although the exact location of the tear is difficult to visualize. There is a collection of contrast in the distal insertion of the supraspinatus tendon, which is likely the location of the tear. There is some narrowing of the subacromial space and there is moderate spurring in the inferior aspect of the bony acromion process. The silhouette of the subscapularis and infraspinatus tendons is unremarkable. Biceps tendon appears in the bony bicipital groove surrounded by some contrast. No bony erosive or destructive lesion is seen. IMPRESSION: Findings consistent with full thickness distal supraspinatus cuff tear. No loose body seen. Acromion process spurring and some narrowing of the subacromial space. MTDD
--- NOTE | 2020-01-28 09:28 | REP ---
LEFT SHOULDER ARTHROGRAM: The procedure was performed under the direct supervision of Dr. Arroyo. The images were reviewed with Dr. Arroyo. The benefits and risks including but not limited to pain, infection, bleeding, and anaphylaxis were explained to the patient and informed consent was obtained. The left glenohumeral joint space was localized using fluoroscopic guidance. The skin was prepped and draped in a sterile fashion. 1% Lidocaine was used as a local anesthetic. Using fluoroscopic guidance, a 22 gauge needle was inserted and advanced into the joint. 10cc of Isovue 300 was injected. The needle was removed and the patient was taken to CT for post-procedural imaging. The patient tolerated the procedure well and there were no immediate complications. Less than 6 seconds of fluoroscopy time was utilized for this procedure. YANG
== END ==
LOC: M RADPRO 12:49
PROVIDERS: ATTEND Orthopaedic Surgery
DX: M75.42 Impingement syndrome of left shoulder (principal); R93.7 Abnormal findings on diagnostic imaging of other parts of musculoskeletal system
CPT/HCPCS: 23350; 73201; 77002; Q9967

== ENCOUNTER → 2020-01-18 | Outpatient (CLI) | payer MEDICARE, OTHER ==
[~2020-01-18] MED LIST changes: -ISOVUE-300 61% 50ML VIAL As Ordered ONE
--- NOTE | 2020-02-24 11:39 | RADONC ---
MEDICAL ONCOLOGY CONSULTATION NOTE DATE: 01/18/2020 Chart #[id number] DIAGNOSIS: 1. 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 Stage: Clinical Tx, N0, M0. ECOG performance status 2. CONSULTATION NOTE: Mr. Gauthier is a pleasant 79-year-old white male with a diagnosis of a poorly differentiated squamous cell carcinoma of the mid esophagus who is presenting to us today status post palliative chemotherapy which was completed in June for discussion of possible consolidative radiation therapy to his esophagus. HISTORY OF PRESENT ILLNESS: The patient has a long history of multiple medical illnesses. Apparently, sometime in 2018 he had some progressive dysphagia to solids as well as weight loss. He underwent imaging including an upper GI series in mid November 2018 which showed a 4.6 cm irregular filling defect in the mid and distal esophageal region consistent with a mass. On 12/21/2018, the EGD with Dr. Cook was done and revealed a large ulcerated mass with no bleeding or stigmata of recent bleeding in the mid esophagus at 32 to 35 cm from the incisors. No other abnormalities were identified in the stomach or duodenum. Biopsy was undertaken and pathology revealed a poorly differentiated squamous cell carcinoma with necrosis. No molecular studies were done. Subsequent CT scan of the abdomen and pelvis without contrast on 12/23/2018 revealed in the chest a circumferential thickness of the mid esophageal region from the levels of T8 through T10 accompanied by luminal narrowing consistent with neoplasm. There was no evidence of mediastinal or axillary lymphadenopathy seen. The patient had a PET CT scan done on 01/12/2019 and there was noted to be a 1 cm hypermetabolic area in the neck along the posterior margin of the vocal cords. The SUV value of that was 6.9. There was also a hypermetabolic focus corresponding to the wall thickening in the esophagus with an SUV value of 11.5. The patient was offered external beam radiation therapy with concomitant chemotherapy but refused radiation therapy at that time. He was not deemed to be a surgical candidate due to multiple comorbidities. He did not want to have a feeding tube or any increased difficulty swallowing and refused radiation throughout the course of palliative chemotherapy. He was subsequently treated with palliative chemotherapy consisting of Carboplatin and Taxol. The treatments went on until June 2019. Subsequent PET CT scan done on 01/02/2020 was within normal limits with no sign of residual disease. A CT scan was done on 01/05/2020 of the chest which showed a normal appearing esophagus with no evidence of mediastinal or other lymphadenopathy. A CT scan of the abdomen and pelvis done on 01/05/2020 showed no evidence of metastatic disease. The patient was then seen by Dr. Link after having refused radiation for the past year and now says he would consider radiation therapy. Once again, his chemotherapy of Carboplatin and Paclitaxel went on from 02/06/2019 through 07/23/2019 and he has had an excellent result with no apparent disease at this time. He is now presenting once again for consideration of some consolidative/palliative radiation therapy. PAST MEDICAL HISTORY: The patients past medical history is positive for chronic obstructive sleep apnea, he is on 5 liters of oxygen at night. He has CAD. In addition, the patient has a ventricular pacemaker with AICD. He has cardiac stents placed. He has had atrial fibrillation. In addition, he has Type 2 diabetes, obesity, dyslipidemia, hypertension, chronic kidney disease Stage III, a history of a TIA and a stroke. He has gout and a history of __ with persistent right hand tremor. In addition, the patient had a right hip replacement. He had a right hip seroma excision. Cardiac stenting as noted above was done. He has had epigastric and umbilical hernia repairs done. Right shoulder surgery was done as well as a vasectomy and right carpal tunnel surgery. ALLERGIES: The patient has no known drug allergies. MEDICATIONS: A list of the patients present medications is available on his medical record and is extensive. FAMILY HISTORY: The patients family history is negative for malignancy. SOCIAL HISTORY: The patient had smoked cigarettes for many years and then switched to cigars. He drinks two alcoholic beverages a day. He has limited mobility. REVIEW OF SYSTEMS: The patients review of systems is positive for a significant amount of left shoulder pain. He reports that he has been seen by Dr. Clark and requires surgery of that shoulder. Normally, he walks with a walker but is unable to support his weight secondary to a tear in his shoulder. He is now using a cane and is quite concerned that the pain is progressing and with the coming winter months he will slip and fall. The patient has a long history of falling. He wishes to have shoulder surgery done as soon as possible before he falls since he is unstable. In addition, he reports that since there is no cancer and the treatments actually stopped five months ago, he wishes to wait until after the surgery is done to even consider palliative/consolidative radiation therapy. The patient denies nausea, vomiting, fevers, chills, night sweats, diplopia, headaches, anxiety, urinary or bowel difficulties. He is having no difficulty swallowing at this time. PHYSICAL EXAMINATION: GENERAL: The patient is an elderly white male in no acute distress. HEENT: Normocephalic, atraumatic. Extraocular movements are intact. LYMPH: There is no palpable cervical, supraclavicular, infraclavicular or axillary lymphadenopathy present. LUNGS: His lungs are clear to auscultation and percussion. HEART: His heart has a regular rate and rhythm. ABDOMEN: Abdomen is overall benign with no hepatosplenomegaly or masses. EXTREMITIES: The remainder of his physical exam shows limited range of motion secondary to pain over the left shoulder. ASSESSMENT: I have spoken with Dr. Clark about this case in detail. I do not see a nuñez to treat this within the next week or two in light of the fact his chemotherapy was completed almost seven months ago and he remains free of disease on PET scan and CT scan. I think he is a greater risk overall of falling and causing himself great injury especially with winter coming. He has an unsteady gait, and especially unsteady using just a cane and not a walker. The patient refused definitive treatment now for a year and at this point the role of radiation would be simply to obtain some type of local control for a period of time. Considering all his other morbidities, it is not unreasonably to wait if the surgery can be done as soon as possible and perhaps initiate treatment planning within a week or two following that surgery. I anticipate after talking to Dr. Clark we should be able to initiate treatment planning by the third week of January or so if things can be expedited. The patient is aware at this time that there is no evidence of malignancy on his scans, at least the CT scans. The PET scan was done almost four months ago. Radiation can be utilized for palliation when a recurrence occurs if the patient so chooses. Once again, the patient is apparently not a surgical candidate and has chosen palliative treatment. He cannot therefore make a wrong choice. In light of all of this, I have set him up to be seen by us again two weeks following his shoulder surgery. He will be meeting the full-time radiation oncologist, Dr. García Duran at that time for further discussion to see whether or not he has decided that he wants this treatment. In the meantime, the patient has my cell phone number and can reach me if he has any questions whatsoever. Thank you for allowing us to participate in the care of this very pleasant gentleman. As always, warm regards. Edited: bran 02/24/2020 1218 MTDD
== END ==
LOC: M ONCR 10:03
PROVIDERS: ATTEND Radiology Radiation Oncology
DX: C15.5 Malignant neoplasm of lower third of esophagus (principal)

== ENCOUNTER → 2020-02-03 | Outpatient (CLI) | payer SELFPAY ==
[~2020-02-03] MED LIST changes: -MAGICMW PO; -ONDA8TAB8 PO; -OXYC1SOL3 PO
== END ==
LOC: M LABSMTC 10:48
PROVIDERS: ATTEND Pediatrics
DX: Z20.828 Contact with and (suspected) exposure to other viral communicable diseases (principal)

== ENCOUNTER 2020-02-25 11:07 | Outpatient (RCR) | payer MEDICARE, OTHER ==
[2020-02-28] MEDS ORDERED: MAGICMW PO (11:33)
[2020-02-29] MEDS ORDERED: OXYC1SOL3 PO (11:56)
== END 2020-02-26 ==
LOC: M ONCR 11:07
PROVIDERS: ATTEND General Practice
DX: C15.4 Malignant neoplasm of middle third of esophagus (principal)

== ENCOUNTER 2020-03-03 11:12 | Outpatient (RCR) | payer MEDICARE, OTHER ==
[~2020-03-03 11:12] MED LIST changes: +MAGICMW PO; +OXYC1SOL3 PO
[2020-03-03] MEDS ORDERED: OXYC1SOL3 PO (13:12)
[2020-03-08] MEDS ORDERED: ONDA8TAB8 PO (11:18)
== END 2020-03-27 ==
LOC: M ONCR 11:12
PROVIDERS: ATTEND General Practice
DX: C15.4 Malignant neoplasm of middle third of esophagus (principal)

== ENCOUNTER → 2020-05-11 | Outpatient (REF) | payer MEDICARE, OTHER ==
[~2020-05-11] MED LIST changes: -MONT10TA4 PO; +MONT5TAB2 PO; +ONDA8TAB8 PO
== END ==
LOC: M LAB REF 16:36
PROVIDERS: ATTEND Internal Medicine
DX: N52.01 Erectile dysfunction due to arterial insufficiency (principal)

== ENCOUNTER → 2020-05-24 | Outpatient (CLI) | payer MEDICARE, OTHER ==
[~2020-05-24] MED LIST changes: +HYDR-3490 PO; -HYDR25TAB PO; +MONT10TA10 PO; -MONT5TAB2 PO; +MYRB25TA PO
[2020-05-24 11:23] LABS: ALBUMIN 3.8 GM/DL (3.2-5.2); BILIRUBIN,TOTAL 0.4 MG/DL (0.2-1.0); CALCIUM LEVEL 9.9 MG/DL (8.8-10.2); CREATININE FOR GFR 1.87 MG/DL (0.70-1.30); GLOMERULAR FILTRATION RATE 37.5 (>42); POTASSIUM SERUM 4.4 MEQ/L (3.5-5.1); TOTAL PROTEIN 7.5 GM/DL (6.4-8.2)
== END ==
LOC: M ONCM 10:27 → EDSTATUS 10:30 → M ONCR 10:30 → M ONCM 06-14 11:00
PROVIDERS: ATTEND Internal Medicine Medical Oncology
DX: C15.4 Malignant neoplasm of middle third of esophagus (principal)

== ENCOUNTER → 2020-05-31 | Outpatient (CLI) | payer MEDICARE, OTHER ==
[~2020-05-31] MED LIST changes: +GASTROGRAFIN SOLUTION 30ML (Q9963) As Ordered ONE; +ISOVUE-370 76% 100ML VIAL As Ordered ONE; -MYRB25TA PO
--- NOTE | 2020-05-31 14:13 | REP ---
INDICATION: SCC OF ESOPHAGUS COMPARISON: 01/05/2020. TECHNIQUE: CT Scan of the abdomen and pelvis was performed without intravenous contrast. Sagittal and coronal reconstruction images performed. Oral contrast was administered. FINDINGS: Lung bases: There are chronic fibrotic changes in both visualized lung bases, with bronchiectasis. There are mild patchy parenchymal opacities inferiorly along the diaphragms which may represent some very mild bibasilar atelectasis or infiltrate. Liver: Grossly unremarkable. Gallbladder: Unremarkable. Spleen: Grossly unremarkable.. Adrenals: Normal. Pancreas: Grossly unremarkable.. Kidneys: No renal stone is seen bilaterally and there is no hydronephrosis. There is a cyst in the upper pole of left kidney approximately 2.2 cm in diameter and another in the lower pole approximately 1.2 cm in diameter. Small and large bowel: Multiple diverticula are seen throughout the colon without evidence of acute diverticulitis. Free fluid: None. Abdominal aorta: There are moderate atherosclerotic calcifications of the abdominal aorta without aneurysm. Adenopathy: None. Appendix: Not inflamed. Osseous structures: There is a right total hip prosthesis. There are degenerative changes of the spine without acute compression deformity. Pelvis: No mass. No bladder calculus seen. IMPRESSION: Very mild patchy parenchymal opacities in each lung base may represent mild atelectasis or infiltrate. No new findings in the abdomen or pelvis as discussed above. <Electronically signed by Leonard Pierre > 05/31/20 [id number]
== END ==
LOC: M RAD 11:22
PROVIDERS: ATTEND General Practice
DX: C15.9 Malignant neoplasm of esophagus, unspecified (principal)
CPT/HCPCS: 74176; Q9963; Q9967

== ENCOUNTER → 2020-06-01 | Outpatient (CLI) | payer MEDICARE, OTHER ==
[~2020-06-01] MED LIST changes: -GASTROGRAFIN SOLUTION 30ML (Q9963) As Ordered ONE; -ISOVUE-370 76% 100ML VIAL As Ordered ONE
--- NOTE | 2020-06-01 13:04 | REP ---
INDICATION: ESO CA. Malignant neoplasm middle 3rd of the esophagus diagnosed January 18, 2020. question 2019.. COMPARISON: Comparison chest CT study January 05, 2020.. TECHNIQUE: Helical scanning is acquired. 3 mm axial images are generated. Coronal and sagittal MPR and coronal MIP images are generated. FINDINGS: Preliminary digital plant taxonomist radiograph is unremarkable. Pacemaker is seen in the mildly enlarged heart. On axial CT images, there is a new area of abnormal density in the superior segment of the right lower lobe consisting of 2 adjacent spiculated nodular densities with some tenting of the adjacent major fissure. These adjacent nodular densities measure 10 and 12 mm in greatest diameter respectively. They were not evident on January 05, 2020. In addition, there is a new 4 mm noncalcified nodule a little lower down in the superior aspect of the right lower lobe. In the posterior vertebral phrenic angle of the right lower lobe there is a small 11 mm nodular new density which may have cavitary change within it. No other new pulmonary nodule is seen. There are however scattered ground-glass opacities in the periphery of the lower lobes bilaterally and to a lesser extent in the right middle lobe and lingula. These ground-glass opacity changes may be inflammatory. There is no adrenal lesion. The visualized upper abdominal structures are unremarkable. Pacemaker is seen in the right heart and there is coronary artery calcification as before. No mediastinal mass is seen. No hilar mass or adenopathy is observed. No esophageal wall thickening or mass effect is appreciated. Bone window settings show multiple old healed rib fractures bilaterally. No bony destructive lesion. IMPRESSION: There are several new right-sided spiculated pulmonary nodules in the right lower lobe. There are bilateral basilar predominantly peripheral ground-glass opacities in the lung march as well also new. <Electronically signed by Andrea Arroyo > 06/01/20 1301
== END ==
LOC: M RAD 11:46
PROVIDERS: ATTEND General Practice
DX: C15.9 Malignant neoplasm of esophagus, unspecified (principal)

== ENCOUNTER → 2020-06-07 | Outpatient (CLI) | payer MEDICARE, OTHER ==
[~2020-06-07] MED LIST changes: +MYRB25TA PO
--- NOTE | 2020-06-07 15:08 | RADONC ---
Radiation Oncology Hx/FUP Radiation Oncology Hx/FUP Date of Service: Jun 07, 2020 Pt Identifier Anthony Gauthier is a 79 year old male current smoker seen for a followup visit today at the department of radiation oncology for a history of mid esophageal SCC stage [id number] s/p neoadjuvant chilkat doublet chemotherapy completed 07/23/19 (patient declined chemoradiation initially) with CR. He underwent consolidative RT to the primary site alone 40 Gy in 15 fractions completed 03/03/20. He is here today to review his 3 month restaging scans and determine next steps. Diagnosis/Treatment History Oncologic History Multiple medical comorbidities CKD, CVA, CAD, s/p AICD, LISA, PAF, Neuropathy 2017 dysphagia and weight loss 12/21/18 EGD biopsy showing mid esophageal SCC ECOG 3 at presentation not surgical candidate. Refused concurrent chemoradiation initially Baseline neck CT 01/14/2019 with ill-defined soft tissue prominence near/posterior to vocal cord level with uptake on PET uncertain etiology. PET CT 01/12/2019 mid esophageal mass with wall thickening, SUV 11.5; 1 cm hypermetabolic focus at vocal cord posteriorly, SUV 6.9. Abdomen and pelvis CT 12/23/2018 no specific abnormalities identified. Carbo taxol chemotherapy 02/06/19-07/23/[address] 06/23/2019 no abnormal hypermetabolic uptake, no neck mass or adenopathy. No hilar or mediastinal uptake. Previously noted esophageal wall thickening and circumferential distal esophageal uptake resolved. PET CT 10/05/2019 negative for hypermetabolic uptake. 02/14/20-03/03/20 Consolidative RT to the primary site 40 Gy in 15 fractions Recent data: 06/01/20 CT chest FINDINGS: Preliminary digital screwhead polisher radiograph is unremarkable. Pacemaker is seen in the mildly enlarged heart. On axial CT images, there is a new area of abnormal density in the superior segment of the right lower lobe consisting of 2 adjacent spiculated nodular densities with some tenting of the adjacent major fissure. These adjacent nodular densities measure 10 and 12 mm in greatest diameter respectively. They were not evident on January 05, 2020. In addition, there is a new 4 mm noncalcified nodule a little lower down in the superior aspect of the right lower lobe. In the posterior vertebral phrenic angle of the right lower lobe there is a small 11 mm nodular new density which may have cavitary change within it. No other new pulmonary nodule is seen. There are however scattered ground-glass opacities in the periphery of the lower lobes bilaterally and to a lesser extent in the right middle lobe and lingula. These ground-glass opacity changes may be inflammatory. There is no adrenal lesion. The visualized upper abdominal structures are unremarkable. Pacemaker is seen in the right heart and there is coronary artery calcification as before. No mediastinal mass is seen. No hilar mass or adenopathy is observed. No esophageal wall thickening or mass effect is appreciated. Bone window settings show multiple old healed rib fractures bilaterally. No bony destructive lesion. IMPRESSION: There are several new right-sided spiculated pulmonary nodules in the right lower lobe. There are bilateral basilar predominantly peripheral ground-glass opacitie s in the lung march as well also new. 05/31/20 CT abdomen pelvis Negative for distant metastases Interval History Corona reports he feels well. He has no dysphagia or odynophagia. His appetite is good. He has no CP or SOB, no AICD discharges. Current Therapy Surveillance Stage SCC mid esophagus [id number] stage I--> stage IV (metastatic progression in lung suspected) Social History: 50+ pack year current smoker Drinks 1 beer per day Exposed to asbestos occupationally Allergies / Meds Allergies: Coded Allergies: No Known Allergies (Verified , 12/18/18) Home Meds Active Scripts Ondansetron (Ondansetron Odt) 8 Mg Tab.rapdis, 1 TAB PO TIDP for 7 Days, #30 TAB Prov:SANTOSH SERRANO MD 03/08/20 Oxycodone HCl (Oxycodone HCl) 5 Mg/5 Ml Solution, 2.5 ML PO Q4HP PRN for PAIN MDD 15ml for 14 Days, #210 ML Prov:SANTOSH SERRANO MD 03/03/20 Magic Mouthwash (First-Mouthwash Blm) 1 Ea Susp, 10 ML PO QID for MUCOSITIS, #240 ML 5 Refills (Diphenhydramine/maalox/lidocaine 1:1:1) May compound if kit unavailable/not covered by insurance. Take w/ straw Prov:SANTOSH SERRANO MD 02/28/20 Lorazepam (Ativan) 1 Mg Tablet, 1 MG PO ONCE for before PET MDD 2mg, #2 TAB 0 Refills Prov:Humaira Soriano MD 06/18/19 Triamcinolone Acet (Triamcinolone Acetonide 0.1% Crm) 80 Gm Cream..g., 1 APLCT TOP BID for 10 Days, #80 GRAM 11 Refills Prov:Humaira Soriano MD 05/14/19 Dexamethasone (Decadron) 4 Mg Tablet, 4 MG PO BID for 3 Days, #12 TAB 6 Refills 1 tab twice daily for 3 days start 1 day before each chemo Prov:Humaira Soriano MD 02/11/19 Prochlorperazine Maleate (Prochlorperazine Maleate) 10 Mg Tablet, 10 MG PO Q8HP PRN for NAUSEA for 7 Days, #30 TAB Prov:Humaira Soriano MD 01/27/19 Ondansetron HCl (Ondansetron HCl) 8 Mg Tablet, 8 MG PO Q6H PRN for NAUSEA OR V OMITING, #30 TAB 3 Refills Prov:Humaira Soriano MD 01/27/19 Pantoprazole Sodium (Protonix) 40 Mg Tab, 40 MG PO DAILY for 30 Days, #30 TAB Prov:Hellen Barba MD 01/15/19 Reported Medications Finasteride (Proscar) 5 Mg Tablet, 1 TAB PO DAILY for 30 Days, #30 TAB 02/21/20 Tamsulosin HCl (Flomax) 0.4 Mg Capsule, 0.4 MG PO DAILY, CAP 01/10/20 Tamsulosin HCl (Flomax) 0.4 Mg Capsule, 0.4 MG PO DAILY for 30 Days, #30 CAP 01/10/20 Meclizine HCl (Meclizine HCl) 25 Mg Tablet, 1 TAB PO TID for dizziness for 30 Days, #90 TAB 09/21/19 Meloxicam (Meloxicam) 15 Mg Tablet, 15 MG PO DAILY for 30 Days, #30 TAB 09/21/19 Glipizide (Glipizide) 10 Mg Tablet, 1 TAB PO BID for 30 Days, #60 TAB 06/28/19 Aspirin (Adult Low Dose Aspirin EC) 81 Mg Tablet.dr, 81 MG PO 05/14/19 Apixaban (Eliquis) 5 Mg Tablet, 5 MG PO BID for 30 Days, #60 TAB 05/14/19 Budesonide/Formoterol (Symbicort 80-4.5 Mcg Inhaler) 6.9 Gm Hfa.aer.ad 04/01/19 Sildenafil Citrate (Sildenafil) 20 Mg Tablet 04/01/19 Cyanocobalamin (Cyanocobalamin Injection) 1,000 Mcg/1 Ml Vial 04/01/19 Magnesium Chloride (Mag64) 64 Mg Tablet.dr, 64 MG PO DAILY for 30 Days, #30 TAB 01/07/19 Metformin HCl (Metformin HCl) 500 Mg Tablet, 500 MG PO DAILY 12/18/18 Potassium Chloride (Potassium Chloride) 20 Meq Tablet.er, 20 MEQ PO DAILY 12/18/18 Fluticasone/Umeclidin/Vilanter (Trelegy Ellipta 100-62.5-25) 1 Each Blst.w.dev, 1 INH PO DAILY 12/18/18 Losartan Potassium (Losartan Potassium) 50 Mg Tablet, 50 MG PO DAILY 12/18/18 Montelukast Sodium (Montelukast Sodium) 10 Mg Tablet, 10 MG PO DAILY 12/18/18 Hydrochlorothiazide (Hydrochlorothiazide) 25 Mg Tablet, 25 MG PO DAILY 12/18/18 Diclofenac Sodium (Diclofenac Sodium) 3 % Gel, 3 % TD QHS, GEL APPLIED TO LEGS 11/17/16 Nitroglycerin (Nitroglycerin) 0.4 Mg Sub, 1 TAB SL PRN for CHEST PAIN 11/17/16 Rosuvastatin Calcium (Crestor) 40 Mg Tab, 40 MG PO DAILY, TAB 11/17/16 Fenofibrate Nanocrystallized (Tricor) 145 Mg Tab, 145 MG PO DAILY, TAB 11/17/16 Metoprolol Succinate (Metoprolol Succinate) 50 Mg Tab, 50 MG PO DAILY, TAB 09/20/16 Furosemide (Lasix) 40 Mg Tab, 40 MG PO DAILY PRN for FLUID RETENTION, TAB 09/20/16 Review of Systems Review of Systems Constitutional: Denies: Chills, Fever, Weakness, Weight Loss Eyes: Denies: Pain, Vision change HEENT: Denies: Head Aches Skin: Denies: Rash Pulmonary: Denies: Dyspnea, Cough Cardiovascular: Denies: Chest Pain, Palpitations Gastrointestinal: Denies: Nausea, Vomiting, Abdominal Pain Genitourinary: Denies: Dysuria, Frequency Hematologic: Denies: Bruising Endocrine: Denies: Polydipsia Musculoskeletal: Denies: Neck pain, Back pain Neurological: Denies: Weakness, Numbness Psych: Reports: Mood Normal Physical Examination Vital Signs Ht 70" Wt 247 T 97.2 P 95 RR 20 BP 159/77 O2 99% Pain 0 Fatigue 0 General Exam: Positive: Alert, Cooperative; Negative: No Acute Distress Eye Exam: Positive: PERRLA, EOMI ENT EXAM: Positive: Atraumatic, Pharynx Normal Neck Exam: Positive: Supple; Negative: Lymphadenopathy Chest Exam: Positive: Clear to auscultation, Normal air movement; Negative: Rales, Rhonchi, Wheezing Heart Exam: Positive: Rate Normal, Regular Rhythm Abdomen Exam: Positive: Normal bowel sounds, Soft; Negative: Tenderness Extremity Exam: Positive: Edema Skin Exam: Positive: Nl turgor and temperature Neuro Exam: Positive: Normal Gait, Strength at 5/5 X4 ext, Cranial Nerves 3-12 NL, Other (Right hand tremor) Psych Exam: Positive: Mental status NL; Negative: Anxiety Diagnostic and Laboratory Diagnostic Review Radiologic images, relevant labs and pathology reports were personally reviewed and discussed with Mr. Gauthier. Assessment and Plan Impression Assessment Mr. Gauthier is a 79 year old male current smoker seen for a followup visit today at the department of radiation oncology for a history of mid esophageal SCC stage [id number] s/p neoadjuvant chilkat doublet chemotherapy completed 07/23/19 (patient declined chemoradiation initially) with CR. He underwent consolidative RT to the primary site alone 40 Gy in 15 fractions completed 03/03/20. He is here today to review his 3 month restaging scans and determine next steps. He is doing well clinically, dysphagia is resolved as has pain with swallowing. His weight is up. I am concerned however for the appearance of 3 small spiculated RLL nodules on his CT scan which look metastatic to me. I will pursue biopsy and these should be amenable to a percutaneous approach so will refer to IR for this. I will also refer him back to Dr. Link in anticipation of additional systemic therapies. I have not ruled out the possibility of doing additional radiation (perhaps even stereotactic radiation) for these, however I would want the best course of action to be decided in a multidisciplinary fashion and systemic therapy should be the first consideration. Corona agrees to this plan. Performance Status ECOG [address] biopsy of RLL nodule(s) Refer to Dr. Link in anticipation of additional systemic therapy if nodules are metastatic Follow up with me after the above Mr. Gauthier was encouraged to call with questions or concerns in the interim period. Total time of (31) minutes was spent preparing for the visit (3), obtaining HPI (3), examining the patient (3), reviewing diagnostic tests (7), discussing management options (5), coordinating care (3), and writing this note (7). SANTOSH SERRANO MD Jun 07, 2020 15:08
== END ==
LOC: M ONCR 11:17
PROVIDERS: ATTEND General Practice
DX: R91.8 Other nonspecific abnormal finding of lung field (principal); C15.4 Malignant neoplasm of middle third of esophagus

== ENCOUNTER → 2020-06-08 | Outpatient (CLI) | payer MEDICARE, OTHER ==
[2020-06-08 11:32] LABS: BASO # 0.1 10^3/uL (0.0-0.2); BASO % 1.8 % (0.0-1.0); EOS # 0.3 10^3/uL (0.0-0.5); EOS % 5.1 % (0.0-3.0); HEMATOCRIT 43.7 % (42.0-52.0); HEMOGLOBIN 13.9 g/dl (13.5-17.5); LYMPH % 19.6 % (24.0-44.0); MEAN CORPUSCULAR HEMOGLOBIN 29.3 pg (27.0-33.0); MEAN CORPUSCULAR HGB CONC 31.8 g/dl (32.0-36.5); MEAN CORPUSCULAR VOLUME 92.2 fl (80.0-96.0); MONO # 0.6 10^3/uL (0.0-0.8); MONO % 11.8 % (0.0-5.0); NEUTROPHILS # 3.1 10^3/uL (1.5-8.5); NEUTROPHILS % 60.7 % (36.0-66.0); PLATELET COUNT, AUTOMATED 233 10^3/uL (150-450); RED BLOOD COUNT 4.74 10^6/uL (4.30-6.10); WHITE BLOOD COUNT 5.1 10^3/uL (4.0-10.0)
[2020-06-08 11:41] LABS: INR 1.19; PROTHROMBIN TIME 15.4 SECONDS (12.5-14.3)
[2020-06-08 11:42] LABS: PARTIAL THROMBOPLASTIN TIME 30.9 SECONDS (24.2-38.5)
[2020-06-08 11:56] LABS: ALBUMIN 3.6 GM/DL (3.2-5.2); BILIRUBIN,TOTAL 0.7 MG/DL (0.2-1.0); CALCIUM LEVEL 9.7 MG/DL (8.8-10.2); CREATININE FOR GFR 1.67 MG/DL (0.70-1.30); GLOMERULAR FILTRATION RATE 42.7 (>42); POTASSIUM SERUM 4.4 MEQ/L (3.5-5.1); TOTAL PROTEIN 7.3 GM/DL (6.4-8.2)
== END ==
LOC: EDSTATUS 10:30 → M ONCM 10:43 → M ONCR 10:45
PROVIDERS: ATTEND General Practice
DX: C15.9 Malignant neoplasm of esophagus, unspecified (principal); R91.8 Other nonspecific abnormal finding of lung field; I63.9 Cerebral infarction, unspecified; N18.9 Chronic kidney disease, unspecified; I48.91 Unspecified atrial fibrillation; Z95.0 Presence of cardiac pacemaker; G47.33 Obstructive sleep apnea (adult) (pediatric); G62.9 Polyneuropathy, unspecified; Z79.899 Other long term (current) drug therapy

== ENCOUNTER → 2020-06-16 | Outpatient (CLI) | payer MEDICARE, OTHER ==
[~2020-06-16] MED LIST changes: +LIDOCAINE 1% MDV 20ML VIAL As Ordered ONE
--- NOTE | 2020-06-16 10:00 | REP ---
INDICATION: POST RIGHT LUNG BIOPSY, 1 VIEW, PA INSPIRATION. COMPARISON: Comparison chest x-ray November 17, 2016.. TECHNIQUE: PA chest radiograph. FINDINGS: There is no evidence of pneumothorax or hydrothorax. Multilead pacemaker is again noted in the heart view of the left side. Old healed rib fractures are noted bilaterally. IMPRESSION: Status post right lung biopsy. No complications seen. <Electronically signed by Andrea Arroyo > 06/16/20 0957
[2020-06-16 11:48] VITALS: BP 180/80
--- NOTE | 2020-06-16 16:38 | REP ---
INDICATION: MALIGNANT NEOPLASM OF MIDDLE THIRD OF ESOPHAGUS. COMPARISON: None. TECHNIQUE: The procedure was performed under the direct supervision of Dr. Arroyo. Patient has a history of a new area of abnormal density in the superior segment of the right lower lobe seen on a previous CT scan dated 06/01/2020. The risks and benefits of the procedure were explained to the patient and informed consent was obtained. The right lower lobe lung nodules were localized using CT guidance. The skin was prepped and draped in a sterile fashion. 1% lidocaine was used as a local anesthetic. Using CT guidance a 19/20 gauge coaxial needle biopsy system was inserted and advanced into the nodule. Four core biopsy samples were obtained and sent to the lab. The patient tolerated the procedure well and there were no immediate complications. After the appropriate amount to monitor convalescence the patient was discharged from the department. FINDINGS: None IMPRESSION: CT-guided right lower lobe lung biopsy. <Electronically signed by Singh Galindo > 06/16/20 [id number] <Electronically signed by Anrdea Arroyo > 06/16/20 [id number]
== END ==
LOC: M IRPRO 08:33
PROVIDERS: ATTEND General Practice
DX: R91.1 Solitary pulmonary nodule (principal); C15.4 Malignant neoplasm of middle third of esophagus

== ENCOUNTER → 2020-07-17 | Outpatient (CLI) | payer MEDICARE, OTHER ==
[~2020-07-17] MED LIST changes: -LIDOCAINE 1% MDV 20ML VIAL As Ordered ONE
--- NOTE | 2020-07-17 18:02 | REP ---
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 Status post chemo and radiation therapy. New right-sided spiculated pulmonary nodules in the right lower lobe. Recent CT guided needle biopsy of the right lung negative for malignancy. COMPARISON: Comparison PET-CT studies are reviewed the most recent of which is from October 05, 2019 and the most remote [id number].. Comparison CT study of the chest June 01, 2020. TECHNIQUE: Fifty-one minutes following the intravenous injection of a 15.11 mCi dose of F-18 FDG, three-dimensional PET scintigraphy is acquired from the skull base to the proximal thighs. Triplanar noncontrast CT scanning is acquired through the same anatomic range for attenuation correction, and image registration with scan parameters optimized to minimize radiation exposure to the patient. PET scintigraphy and CT datasets were fused and displayed on a workstation with multiplanar and projection display capability. FINDINGS: No abnormal hypermetabolic uptake is seen in the head and neck soft tissues. In the area where CT study shows ill-defined increased density in the right lower lobe, there are 2 areas of mildly increased FDG accumulation on today's PET-CT study. In the superior aspect of the right lower lobe posteromedially there is an ill-defined density which appears more prominent than on June 01, 2020 this shows mildly hypermetabolic uptake, maximum SUV value 4.07. This is the area of the recent biopsy. A little lower in the right lower lobe also posteromedially, there is similar FDG accumulation in an ill-defined density. Maximum standard uptake value here is 3.84. The associated opacities are more infiltrative and combined with the benign result on biopsy, suggest post radiation pneumonitis or inflammatory pneumonitis. No other abnormal hypermetabolic uptake is seen in the lung parenchyma. No hilar or mediastinal hypermetabolic uptake is seen. No evidence of recurrence esophageal hypermetabolic uptake is seen. In the upper abdomen, normal hepatic, splenic, gastrointestinal, and genitourinary FDG accumulation is seen. No abnormal uptake in the abdomen or pelvis. IMPRESSION: Mildly increased uptake in infiltrate like opacities in the right lower lobe posteromedially. Question post radiation pneumonitis versus inflammatory change. Follow-up is advised. <Electronically signed by Andrea Arroyo > 07/17/20 [id number]
== END ==
LOC: M PLARAD 10:26
PROVIDERS: ATTEND General Practice
DX: R91.8 Other nonspecific abnormal finding of lung field (principal); C15.4 Malignant neoplasm of middle third of esophagus
CPT/HCPCS: 78815; A9552

== ENCOUNTER → 2020-08-17 | Outpatient (CLI) | payer MEDICARE, OTHER ==
--- NOTE | 2020-08-17 12:06 | REP ---
INDICATION: PVD COMPARISON: None. TECHNIQUE: Real time pierre scale and color Doppler evaluation of the bilateral lower extremity arterial vasculature using linear high frequency transducer. FINDINGS: Pierre scale and color images demonstrate significant amounts of partially calcified atheromatous plaquing. Doppler interrogation demonstrates normal biphasic arterial wave forms. Right lower extremity demonstrates 1.9:1 stenosis in the origin of the profundus artery and 3.8:1 stenosis in the mid superficial femoral artery. Left lower extremity demonstrates 2.3:1 stenosis in the origin the profundus artery, 2.1:1 stenosis in the mid superficial femoral artery, 4.5:1 stenosis in the proximal popliteal artery, and 4.7:1 stenosis in the distal posterior tibial artery. Ankle/brachial indices are overestimated due to calcifications. Right LENORE: 1.9; left LENORE: 1.3 Peak systolic velocities (cm/sec) Common femoral artery: Right 100; Left 106 Profunda femoris: Right 189; Left 240 SFA (proximal): Right 74; Left 99 SFA (mid): Right 89/334; Left 75/159 SFA (distal): Right 79; Left 68 Popliteal artery: Right 117/144; Left 84/370 POLA (prox.): Right 87; Left 91 Tibioperoneal trunk: Right 44; Left 69 MAJOR ASSEMBLY LINEMAN (prox.): Right 38; Left 55 MAJOR ASSEMBLY LINEMAN (distal): Right 42; Left 59/277 POLA (distal): Right 54; Left 35 IMPRESSION: Extensive bilateral calcified atheromatous plaquing with areas of stenosis as described above. <Electronically signed by Panchito Hurtado > 08/17/20 [id number]
== END ==
LOC: M RAD 10:08
PROVIDERS: ATTEND Podiatrist Foot & Ankle Surgery
DX: I73.9 Peripheral vascular disease, unspecified (principal)

== ENCOUNTER → 2020-08-29 | Outpatient (POV) | payer MEDICARE, OTHER ==
[~2020-08-29] VITALS: Ht 190.5 cm; Wt 110.0 kg
[2020-08-29 11:11] VITALS: BP 153/73
--- NOTE | 2020-08-30 10:40 | IRCOV ---
[facility] IR Consult Office Visit IR Consult Office Visit DATE: August 29, 2020 REASON FOR CONSULTATION/CHIEF COMPLAINT: Lower extremity pain. HISTORY OF PRESENT ILLNESS: 80-year-old diabetic male with history of coronary artery disease, pacemaker, defibrillator placement, coronary stents and prior TIA, presents for arterial evaluation of the lower extremities. Patient describes pain and cramping in the legs, which is worse as the day progresses and the more active he is. He gets muscle spasms, his hips ache, his legs cramp up and feel fatigued. He describes pain with walking. He describes pain when he elevates his legs at night. His leg cramps keep him up at night. He has to swing his legs over the edge of the bed. He states this is been going on for years but is getting much worse. He states his hands and feet always feel cold. He also describes cramping in his hands. He denies prior lower extremity angiography, intervention and/or bypass. He denies prior cold leg, gangrene or amputations. He is a current and active smoker and reports smoking 7 cigars a day. 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 He has smoked for 70 years. He denies chest pain, shortness of breath, paroxysmal nocturnal dyspnea or orthopnea. ALLERGIES: Please see below. HOME MEDICATIONS: Please see below. PAST MEDICAL HISTORY: Diabetes Gout Stroke Esophageal cancer last chemotherapy 1-1/2 years ago. radiation completed 6 months ago. Hypertension PAST SURGICAL HISTORY: Pacemaker Defibrillator Coronary stents FAMILY HISTORY: Noncontributory. SOCIAL HISTORY: Smoker for 70 years. 7 cigars a day. Alcohol 2 vodka martini per day. Denies drugs. REVIEW OF SYSTEMS: Otherwise negative. PHYSICAL EXAMINATION: VITAL SIGNS: Please see below. GENERAL APPEARANCE: Appears well. Comfortable at rest. Resting tremor right hand. HEENT: No scleral icterus. RESPIRATORY: Normal breathing at rest. CARDIOVASCULAR: Normal rate. ABDOMEN: Soft nontender. No palpable pulsatile mass. EXTREMITIES: Right lower extremity: Color and temperature normal. Shiny hairless skin. No edema. No ulcers. Femoral pulse 2+ popliteal +1 DP 2+ PT negative. Motor 5 out of 5. Sensation intact. Left lower extremity: Color and temperature normal. Shiny hairless skin. No ulcers. Femoral pulse 2+ popliteal +1 DP 2+ PT negative. Motor 5 out of 5. Sen sation intact. NEUROLOGICAL: Alert and oriented. PSYCHIATRIC: Appropriate to circumstance. LABORATORY DATA: 07/28/2020 hemoglobin 14.2 hematocrit 43.8 WBC 6.7 platelets 300 sodium 143 potassium 4.5 BUN 24 creatinine 1.6 GFR 44 01/07/2019 hemoglobin A1c 8.2 LDL 67 Imaging: I personally reviewed the bilateral lower extremity arterial ultrasound performed 08/17/2020. There is right SFA stenosis with distal parvus tardus flow. Poor flow in the left profunda, left SFA and proximal left popliteal stenosis. LENORE overestimated due to vascular calcifications. ASSESSMENT/PLAN: 80-year-old diabetic, smoker male with extensive coronary ar lorelei disease, presents with progressively worsening bilateral lower extremity pain which is now present at rest. This is associated with multifocal stenosis on bilateral lower extremity ultrasound. I agree patient would benefit from angiography and/or intervention in the same setting if possible. Patient was advised to quit smoking but he expresses no interest in quitting. Patient already takes aspirin 81 mg. Plavix 75 mg may also benefit this patient. Patient requires better control of his diabetes. We discussed the risks and benefits of angiography and intervention. Patient would like to proceed. As there is more extensive disease on the left lower extremity, we have scheduled the patient for left lower extremity angiography and intervention first. I spent 45 minutes reviewing patient's records, imaging and in consultation with the patient. Thank you for this referral. Cc Dr. Reynoso Allergies Coded Allergies: No Known Allergies (Verified , 12/18/18) Home Medications Scheduled Apixaban (Eliquis), 5 MG PO BID, (Reported) Dexamethasone (Decadron), 4 MG PO BID Diclofenac Sodium (Diclofenac Sodium), 3 % TD PRN, (Reported) Fenofibrate Nanocrystallized (Tricor), 145 MG PO DAILY, (Reported) Finasteride (Proscar), 1 TAB PO DAILY, (Reported) Fluticasone/Umeclidin/Vilanter (Trelegy Ellipta 100-62.5-25), 1 INH PO DAILY, (Reported) Glipizide (Glipizide), 1 TAB PO BID, (Reported) Hydrochlorothiazide (Hydrochlorothiazide), 25 MG PO DAILY, (Reported) Lorazepam (Ativan), 1 MG PO ONCE Losartan Potassium (Losartan Potassium), 50 MG PO DAILY, (Reported) Magnesium Chloride (Mag64), 64 MG PO DAILY, (Reported) Metformin HCl (Metformin HCl), 500 MG PO DAILY, (Reported) Metoprolol Succinate (Metoprolol Succinate), 50 MG PO DAILY, (Reported) Mirabegron (Myrbetriq), 10 MG PO DAILY, (Reported) Montelukast Sodium (Montelukast Sodium), 10 MG PO DAILY, (Reported) Ondansetron (Ondansetron Odt), 1 TAB PO TIDP Pantoprazole Sodium (Protonix), 40 MG PO DAILY Potassium Chloride (Potassium Chloride), 20 MEQ PO DAILY, (Reported) Rosuvastatin Calcium (Crestor), 40 MG PO DAILY, (Reported) Tamsulosin HCl (Flomax), 0.4 MG PO DAILY, (Reported) Triamcinolone Acet (Triamcinolone Acetonide 0.1% Crm), 1 APLCT TOP BID Scheduled PRN Furosemide (Lasix), 40 MG PO DAILY PRN for FLUID RETENTION, (Reported) Nitroglycerin (Nitroglycerin), 1 TAB SL for CHEST PAIN, (Reported) Prochlorperazine Maleate (Prochlorperazine Maleate), 10 MG PO Q8HP PRN for NAUSEA Miscellaneous Medications Aspirin (Adult Low Dose Aspirin EC), 81 MG PO, (Reported) Budesonide/Formoterol (Symbicort 80-4.5 Mcg Inhaler), (Reported) Cyanocobalamin (Cyanocobalamin Injection), (Reported) Sildenafil Citrate (Sildenafil), (Reported) VS, I&O, 24H, Fishbone Vital Signs/I&O Vital Signs Date Time Temp Pulse Resp B/P (MAP) Pulse Ox O2 Delivery O2 Flow Rate FiO2 08/29/20 11:11 98.0 73 20 153/73 (99) 99 Room Air NELDA CACERES MD August 30, 2020 10:40
== END ==
LOC: M IRPOV 10:50
PROVIDERS: ATTEND Radiology Diagnostic Radiology
DX: I70.223 Atherosclerosis of native arteries of extremities with rest pain, bilateral legs (principal); E11.9 Type 2 diabetes mellitus without complications; I25.10 Atherosclerotic heart disease of native coronary artery without angina pectoris; F17.290 Nicotine dependence, other tobacco product, uncomplicated; M10.9 Gout, unspecified; Z79.82 Long term (current) use of aspirin; Z79.84 Long term (current) use of oral hypoglycemic drugs; Z79.899 Other long term (current) drug therapy; Z86.73 Personal history of transient ischemic attack (TIA), and cerebral infarction without residual deficits; Z92.21 Personal history of antineoplastic chemotherapy; Z92.3 Personal history of irradiation; Z95.5 Presence of coronary angioplasty implant and graft; Z95.810 Presence of automatic (implantable) cardiac defibrillator

== ENCOUNTER → 2020-09-07 | Outpatient (CLI) | payer MEDICARE, OTHER ==
[~2020-09-07] MED LIST changes: +ISOVUE-300 61% 50ML VIAL As Ordered ONE; +LIDOCAINE 1% MDV 20ML VIAL As Ordered ONE; +MIDAZOLAM INJ 2MG/2ML VIAL (J2250 PER 1MG) As Ordered ONE; +NS 1,000 ML IV SCH; +ONDANSETRON 4MG/2ML VIAL IV PRN; +PERCOCET 5MG/325MG TAB As Ordered ONE; +PERCOCET 5MG/325MG TAB PO PRN; +PROMETHAZINE INJ 25 MG/ML VIAL (J2550) As Ordered ONE; +diphenhydrAMINE 50MG/ML VIAL (J1200) As Ordered ONE; +fentaNYL 100 MCG/2 ML INJECTION (J3010) As Ordered ONE
[2020-09-07 10:00] LABS: HEMATOCRIT 45.1 % (42.0-52.0); HEMOGLOBIN 14.4 g/dl (13.5-17.5); MEAN CORPUSCULAR HEMOGLOBIN 29.2 pg (27.0-33.0); MEAN CORPUSCULAR HGB CONC 31.9 g/dl (32.0-36.5); MEAN CORPUSCULAR VOLUME 91.5 fl (80.0-96.0); PLATELET COUNT, AUTOMATED 227 10^3/uL (150-450); RED BLOOD COUNT 4.93 10^6/uL (4.30-6.10)
[2020-09-07 10:19] LABS: INR 1.14; PROTHROMBIN TIME 14.9 SECONDS (12.5-14.3)
[2020-09-07 10:27] LABS: CALCIUM LEVEL 9.4 MG/DL (8.8-10.2); CREATININE FOR GFR 1.39 MG/DL (0.70-1.30); GLOMERULAR FILTRATION RATE 52.6 (>42); POTASSIUM SERUM 3.9 MEQ/L (3.5-5.1)
--- NOTE | 2020-09-07 10:41 | IRHP ---
[facility] IR Pre-Procedure H & P General Date of Service: September 07, 2020 Procedure: Same Day Surgery Interval History and Physical I have seen the patient and reviewed last H & P performed within 30 days. There is no significant interval change. History of Present Illness Chief Complaint The patient is a 80-year-old male admitted with a reason for visit of PAD. PRE-PROCEDURE DIAGNOSIS: PAd HEART: normal rate. LUNGS: normal breathing at rest. ASA Classification ASA Classification: III-Severe systemic dis. Mallampati Score: II NPO: Yes Problems with prior sedation: No Obstructive Sleep Apnea: No Plan moderate sedation Allergies Coded Allergies: No Known Allergies (Verified , 12/18/18) Home Medications Scheduled Apixaban (Eliquis), 5 MG PO BID, (Reported) Dexamethasone (Decadron), 4 MG PO BID Diclofenac Sodium (Diclofenac Sodium), 3 % TD PRN, (Reported) Fenofibrate Nanocrystallized (Tricor), 145 MG PO DAILY, (Reported) Finasteride (Proscar), 1 TAB PO DAILY, (Reported) Fluticasone/Umeclidin/Vilanter (Trelegy Ellipta 100-62.5-25), 1 INH PO DAILY, (Reported) Glipizide (Glipizide), 1 TAB PO BID, (Reported) Hydrochlorothiazide (Hydrochlorothiazide), 25 MG PO DAILY, (Reported) Lorazepam (Ativan), 1 MG PO ONCE Losartan Potassium (Losartan Potassium), 50 MG PO DAILY, (Reported) Magnesium Chloride (Mag64), 64 MG PO DAILY, (Reported) Metformin HCl (Metformin HCl), 500 MG PO DAILY, (Reported) Metoprolol Succinate (Metoprolol Succinate), 50 MG PO DAILY, (Reported) Mirabegron (Myrbetriq), 10 MG PO DAILY, (Reported) Montelukast Sodium (Montelukast Sodium), 10 MG PO DAILY, (Reported) Ondansetron (Ondansetron Odt), 1 TAB PO TIDP Pantoprazole Sodium (Protonix), 40 MG PO DAILY Potassium Chloride (Potassium Chloride), 20 MEQ PO DAILY, (Reported) Rosuvastatin Calcium (Crestor), 40 MG PO DAILY, (Reported) Tamsulosin HCl (Flomax), 0.4 MG PO DAILY, (Reported) Triamcinolone Acet (Triamcinolone Acetonide 0.1% Crm), 1 APLCT TOP BID Scheduled PRN Furosemide (Lasix), 40 MG PO DAILY PRN for FLUID RETENTION, (Reported) Nitroglycerin (Nitroglycerin), 1 TAB SL for CHEST PAIN, (Reported) Prochlorperazine Maleate (Prochlorperazine Maleate), 10 MG PO Q8HP PRN for NAUSEA Miscellaneous Medications Aspirin (Adult Low Dose Aspirin EC), 81 MG PO, (Reported) Budesonide/Formoterol (Symbicort 80-4.5 Mcg Inhaler), (Reported) Cyanocobalamin (Cyanocobalamin Injection), (Reported) Sildenafil Citrate (Sildenafil), (Reported) VS, I&O, 24H, Fishbone Vital Signs/I&O Vital Signs Date Time Temp Pulse Resp B/P (MAP) Pulse Ox O2 Delivery O2 Flow Rate FiO2 09/07/20 09:22 97.3 93 20 99 Room Air Laboratory Data 24H LABS Laboratory Tests 2 09/07/20 09:45: Nucleated Red Blood Cells % (auto) 0.0, Prothrombin Time 14.9H, Prothromb Time International Ratio 1.14, Anion Gap 5L, Glomerular Filtration Rate 52.6, Calcium Level 9.4 09/07/20 09:48: Bedside Glucose (Misc Panel) 140H CBC/BMP Laboratory Tests 09/07/20 09:45 NELDA CACERES MD September 07, 2020 10:41
[2020-09-07 18:00] VITALS: BP 117/59
--- NOTE | 2020-09-08 15:00 | IRPN ---
[facility] IR Progress Note IR Progress Note DATE: September 08, 2020 FOLLOW-UP: I called the patient today to check on him regarding his right groin hematoma. Patients reports it is a little sore but not getting any bigger. He able to ambulate and mobilize without problem. He feels his left leg is much improved and the rest pain is gone, status post left SFA and AT angioplasty. He is eager to get his right leg angiogram and intervention done as soon as possible. IMPRESSION: Doing well status post left leg angiogram and angioplasty Patient was advised to start his Eliquis tomorrow ( Friday). I will see him in follow up in clinic and schedule him for his right leg intervention. Thank you for this referral Allergies Coded Allergies: No Known Allergies (Verified , 12/18/18) Current Medications Current Medications Medications (Trade) Dose Ordered Sig/Landen Route PRN Reason Start Time Stop Time Status Last Admin Dose Admin Ondansetron HCl (ZOFRAN INJection) 4 mg Q8H PRN IV NAUSEA 09/07/20 12:45 Oxycodone/ Acetaminophen (Percocet 5mg/ 325mg Tablet) 2 tab Q6H PRN PO MODERATE PAIN (PS 5-7) 09/07/20 12:45 09/07/20 13:19 Sodium Chloride 1,000 ml @ 75 mls/hr [id number] IV 09/07/20 09:35 Sodium Chloride 1,000 ml @ 100 mls/hr Q10H IV 09/07/20 12:45 VS,Fishbone, I+O VS, Fishbone, I+O Vital Signs Date Time Temp Pulse Resp B/P (MAP) Pulse Ox O2 Delivery O2 Flow Rate FiO2 09/07/20 18:00 70 20 98 Room Air 09/07/20 17:35 2.0 09/07/20 09:22 97.3 I&O- Last 24 Hours up to 6 AM 09/08/20 06:00 Output Total 750 ml Balance -750 ml NELDA CACERES MD September 08, 2020 15:00
--- NOTE | 2020-09-11 09:46 | IRPON ---
IR Postoperative Note Date Of Procedure: September 07, 2020 Time Of Procedure: 16:00 IR Postoperative Note IR Left leg angiogram IR Below-knee runoff arteriogram. IR Ultrasound-guided right common femoral artery access. IR Distal SFA angioplasty. IR Popliteal artery angioplasty. IR Selective Anterior tibial artery catheterization. IR Anterior tibial artery angioplasty. IR Moderate sedation. Clinical Information:Left lower extremity rest pain. Physician: Dr. Hamm. Procedure: The patient was advised of the benefits, risks, and alternatives of the procedure and informed consent was obtained. A time out was performed with verification of the patient's name, MRN, site of procedure, and type of procedure to be performed. The patient was positioned in the supine position on the angiographic table. The site was prepped and draped in the usual sterile fashion. Moderate sedation was performed by the physician including the presence of an independent trained RN, who assisted in monitoring the patient's level of consciousness and physiological status. Following the administration of fentanyl and Versed, the physician spent 120 minutes of continuous [id number] time with the patient. A enterprise account manager radiograph reveals hardware in the right femur. Ultrasound of the right groin demonstrates calcified atherosclerotic right common femoral artery. Lidocaine was used for local anesthesia. The right common femoral artery was accessed, under ultrasound guidance with a microintroducer set. A short 0.018" Calion wire was inserted and the needle was exchanged for a 4 Fr microintroducer sheath. The guidewire and dilator were removed and a 0.035" Bentson wire was placed into the abdominal aorta. A 6 Fr sheath was placed over the wire. A 5 [place] Omni flush catheter was advanced over the wire, under fluoroscopy guidance and used to catheterize the infrarenal abdominal aorta. A pelvic arteriogram was performed and this demonstrates unremarkable infrarenal abdominal aorta. Patent bilateral common iliac, internal iliac and external iliac arteries. A wire was advanced through the catheter and used under fluoroscopy guidance to gain up and over access into the left external iliac artery. The catheter was exchanged over the wire for a Glidecath. The Glidecath in conjunction with a wire, was used under fluoroscopy guidance to catheterize the left external iliac artery. A left leg angiogram was performed. This demonstrates mild atherosclerotic dis ease in the left common femoral artery. Diffuse atherosclerotic disease in the proximal left superficial femoral artery which is patent. Patent profunda femoris. Angiogram further down the left leg was performed and this demonstrates multifocal stenosis in the mid and distal superficial femoral artery greater than 80% and focal stenosis in the proximal left popliteal artery at 90%. Patent mid and distal popliteal artery. A below-knee runoff arteriogram was performed and this demonstrates patent distal popliteal artery. Patent tibioperoneal trunk, peroneal and posterior tibial artery. Stenosis of 90% at the origin of the left anterior tibial artery and multifocal stenosis in the proximal and mid left anterior tibial artery at 80% or greater. A runoff arthrogram to the left foot was performed and this demonstrates patent distal anterior tibial and posterior tibial artery. Patent calcaneal and plantar branches. Patent dorsalis pedis. Peroneal artery is patent to the ankle as expected. The catheter in conjunction with the wire, was used under fluoroscopy guidance to catheterize the popliteal artery. The catheter was removed over the wire. A 6 x 200 mm Meherrin balloon was advanced over the wire under fluoroscopy guidance and positioned in the mid and distal superficial femoral artery. Angioplasty of the mid and distal superficial femoral artery was performed. Heparin was administered. The balloon was deflated and repositioned [id number], to the distal superficial femoral artery and proximal popliteal artery. Angioplasty of the distal superficial femoral artery and proximal popliteal artery was performed. The balloon was deflated and removed of the wire. A follow-up post angioplasty arteriogram was performed and this demonstrates resolution of the multifocal stenosis in the mid and distal superficial femoral artery and proximal popliteal artery with improved forward flow. The catheter was readvanced and [id number], under fluoroscopy guidance and used to catheterize the distal popliteal artery. A below-knee runoff arteriogram was performed. This demonstrates severe stenosis at the origin of the anterior tibial artery and multifocal stenosis greater than 90% in the proximal and mid anterior tibial artery. Patent tibia peroneal trunk, posterior tibial artery and peroneal artery with preserved flow. No distal embolization. The catheter in conjunction with the wire was then used, under fluoroscopy guidance, to catheterize the left anterior tibial artery. Intermittent injection of contrast confirmed intraluminal catheterization. The catheter in conjunction with the wire was used, under fluoroscopy guidance, to selectively catheterize the distal anterior tibial artery. Injection of contrast confirmed intraluminal location. The catheter was removed over the w mikayla. A 3 x 200 mm Meherrin balloon was then advanced [id number], under fluoroscopy guidance, and positioned in the proximal and mid left anterior tibial artery. Angioplasty of the proximal and mid left anterior tibial artery was performed. The balloon was deflated and removed over the wire. A follow-up post angioplasty arteriogram was performed, through the sheath, tip of which was positioned in the left iliac artery. This demonstrates resolution of multifocal stenosis in the proximal and mid left anterior tibial artery with improved forward flow. Preserved flow in the distal popliteal, tibio peroneal trunk, peroneal and posterior tibial artery with no distal embolization, vessel injury or extravasation. A completion arteriogram to the left foot was performed, from the groin sheath, tip located in the left iliac artery. This demonstrates improved flow in the anterior tibial artery with faster flow to the dorsalis pedis. Preserved flow in the peroneal and posterior tibial artery and its calcaneal plantar branches. Improved flow to the left foot. No extravasation or distal embolization. Catheter, wire and sheath were removed, pressure held and hemostasis achieved. A sterile dressing was applied to the site. The patient tolerated the procedure well and was returned to the PRU in stable condition. EBL: < 5 mL. Complications:Small right groin hematoma without thrill or pulsatility. This was treated successfully with compression. Impression: 1. Left leg angiogram demonstrates severe multifocal stenosis in the mid and distal superficial femoral artery and proximal popliteal artery. 2. Below-knee left lower extremity runoff arteriogram demonstrates severe multifocal stenosis in the proximal and mid left anterior tibial artery. 3. Runoff arthrogram to the left foot demonstrates 2 vessel runoff to the left foot; anterior tibial and posterior tibial artery. 4. Successful mid and distal superficial femoral and artery angioplasty with resolution of stenosis. 5. Successful proximal popliteal artery angioplasty with resolution of stenosis. 6. Successful proximal and mid anterior tibial artery angioplasty with resolution of stenosis and improve flow to the left foot. 7. Patient to follow-up in IR clinic in 2 weeks. Thank you for this referral. Cc NELDA Beal MD September 11, 2020 09:46
== END ==
LOC: M IRPRO 09:06
PROVIDERS: ATTEND Radiology Diagnostic Radiology
DX: I70.202 Unspecified atherosclerosis of native arteries of extremities, left leg (principal); Z79.899 Other long term (current) drug therapy; Z79.84 Long term (current) use of oral hypoglycemic drugs
CPT/HCPCS: 37224; 37228; 75710; 80048; 85027; 85610; 99152; 99153; C1725; C1760; C1769; C1887; C1894; J1200; J1644; J2250; J3010; Q9967

== ENCOUNTER → 2020-09-12 | Outpatient (POV) | payer MEDICARE, OTHER ==
[~2020-09-12] VITALS: Ht 190.5 cm; Wt 109.1 kg
[~2020-09-12] MED LIST changes: -ISOVUE-300 61% 50ML VIAL As Ordered ONE; -LIDOCAINE 1% MDV 20ML VIAL As Ordered ONE; -MIDAZOLAM INJ 2MG/2ML VIAL (J2250 PER 1MG) As Ordered ONE; -NS 1,000 ML IV SCH; -ONDANSETRON 4MG/2ML VIAL IV PRN; -PERCOCET 5MG/325MG TAB As Ordered ONE; -PERCOCET 5MG/325MG TAB PO PRN; -PROMETHAZINE INJ 25 MG/ML VIAL (J2550) As Ordered ONE; -diphenhydrAMINE 50MG/ML VIAL (J1200) As Ordered ONE; -fentaNYL 100 MCG/2 ML INJECTION (J3010) As Ordered ONE
[2020-09-12 10:56] VITALS: BP 163/76
--- NOTE | 2020-09-13 10:56 | IRPN ---
[facility] IR Progress Note IR Progress Note DATE: September 12, 2020 FOLLOW-UP: Status post left leg angiogram for rest pain. Patient reports his left leg feels much better and the rest pain is resolved. Patient had a right groin hematoma after the procedure. He is on Eliquis which he had stopped for 48 hours prior to the procedure. Patient is on Eliquis for atrial fibrillation, the last time he stopped Eliquis for 5 days for his eye surgery, he did suffer a stroke. Patient is currently on Eliquis. Patient is keen to have his right leg angiogram performed as soon as possible. ON EXAMINATION: Right groin access site with hematoma and tenderness. No pulsatile mass. No palpable thrill. There is bruising and skin discoloration extending along the medial thigh without underlying mass and his lateral scrotal sac, extending discoloration over the mons pubis. There is bruising and skin discoloration extending back to his right buttock. IMPRESSION: Extensive right groin hematoma status post right groin access for left leg angiogram. Patient remains on Eliquis. The bruising and discoloration will take 4-6 weeks to disappear. The right groin hematoma is contained with no indication of ongoing bleeding or pseudoaneurysm. We have scheduled the patient for his right leg angiogram at which time his right groin will also be followed up. Patient to call us if his symptoms change or there is any increase in swelling or pain on the right groin. Allergies Coded Allergies: No Known Allergies (Verified , 12/18/18) VS,Fishbone, I+O VS, Fishbone, I+O Vital Signs Date Time Temp Pulse Resp B/P (MAP) Pulse Ox O2 Delivery O2 Flow Rate FiO2 09/12/20 10:56 98.0 89 20 163/76 (105) 99 Room Air NELDA CACERES MD September 13, 2020 10:56
== END ==
LOC: M IRPOV 10:37
PROVIDERS: ATTEND Radiology Diagnostic Radiology
DX: L76.32 Postprocedural hematoma of skin and subcutaneous tissue following other procedure (principal); I48.91 Unspecified atrial fibrillation; Z79.01 Long term (current) use of anticoagulants; Z86.73 Personal history of transient ischemic attack (TIA), and cerebral infarction without residual deficits

== ENCOUNTER → 2020-10-03 | Outpatient (POV) | payer MEDICARE, OTHER ==
[~2020-10-03] VITALS: Ht 190.5 cm; Wt 111.4 kg
[2020-10-03 08:56] VITALS: BP 142/74
--- NOTE | 2020-10-04 12:56 | IRPN ---
[facility] IR Progress Note IR Progress Note DATE: Oct 03, 2020 FOLLOW-UP: 80-year-old smoker male with bilateral lower extremity rest pain, now status post left lower extremity angiography, SFA and popliteal angioplasty. Patient states his left leg feels remarkably better. He is able to sleep now without pain in the left leg. He is eager to get his right leg treated. ON EXAMINATION: Right groin access site healed up. No further bruising, ecchymosis or mass. IMPRESSION: Doing well status post left lower extremity angiography, SFA and popliteal artery angioplasty. His rest pain in the left lower extremity has resolved, as a result of the intervention. We have scheduled him for his right lower extremity angiography, angioplasty and/or stenting as needed. Again I stressed that smoking cessation is extremely important for skilled nursing arterial patency. Thank you for this referral. Cc Dr. Reynoso Allergies Coded Allergies: No Known Allergies (Verified , 12/18/18) VS,Fishbone, I+O VS, Fishbone, I+O Vital Signs Date Time Temp Pulse Resp B/P (MAP) Pulse Ox O2 Delivery O2 Flow Rate FiO2 10/03/20 08:56 97.3 77 20 142/74 (96) 97 Room Air NELDA CACERES MD Oct 04, 2020 12:56
== END ==
LOC: M IRPOV 08:35
PROVIDERS: ATTEND Radiology Diagnostic Radiology
DX: Z48.812 Encounter for surgical aftercare following surgery on the circulatory system (principal); F17.210 Nicotine dependence, cigarettes, uncomplicated

== ENCOUNTER → 2020-10-09 | Outpatient (CLI) | payer MEDICARE, OTHER ==
[~2020-10-09] MED LIST changes: +ISOVUE-300 61% 50ML VIAL As Ordered ONE; +LIDOCAINE 1% MDV 20ML VIAL As Ordered ONE; +MIDAZOLAM INJ 2MG/2ML VIAL (J2250 PER 1MG) As Ordered ONE; +NS 1,000 ML IV SCH; +VANCOMYCIN 1000MG/20ML VIAL As Ordered ONE; +diphenhydrAMINE 50MG/ML VIAL (J1200) As Ordered ONE; +fentaNYL 100 MCG/2 ML INJECTION (J3010) As Ordered ONE
--- NOTE | 2020-10-09 08:23 | IRHP ---
[facility] IR Pre-Procedure H & P General Date of Service: Oct 09, 2020 Procedure: Same Day Surgery Interval History and Physical I have seen the patient and reviewed last H & P performed within 30 days. There is no significant interval change. History of Present Illness Chief Complaint The patient is a 80-year-old male admitted with a reason for visit of Rt Leg Pad. PRE-PROCEDURE DIAGNOSIS: PAD right leg HEART: Normal rate. LUNGS: Normal breathing at rest. ASA Classification ASA Classification: III-Severe systemic dis. Mallampati Score: II NPO: Yes Problems with prior sedation: No Obstructive Sleep Apnea: No Plan moderate sedation Allergies Coded Allergies: No Known Allergies (Verified , 12/18/18) Home Medications Scheduled Apixaban (Eliquis), 5 MG PO BID, (Reported) Diclofenac Sodium (Diclofenac Sodium), 3 % TD PRN, (Reported) Finasteride (Proscar), 1 TAB PO DAILY, (Reported) Fluticasone/Umeclidin/Vilanter (Trelegy Ellipta 100-62.5-25), 1 INH PO DAILY, (Reported) Glipizide (Glipizide), 1 TAB PO BID, (Reported) Hydrochlorothiazide (Hydrochlorothiazide), 25 MG PO DAILY, (Reported) Lorazepam (Ativan), 1 MG PO ONCE Losartan Potassium (Losartan Potassium), 50 MG PO DAILY, (Reported) Magnesium Chloride (Mag64), 64 MG PO DAILY, (Reported) Metformin HCl (Metformin HCl), 500 MG PO DAILY, (Reported) Metoprolol Succinate (Metoprolol Succinate), 50 MG PO DAILY, (Reported) Mirabegron (Myrbetriq), 10 MG PO DAILY, (Reported) Montelukast Sodium (Montelukast Sodium), 10 MG PO DAILY, (Reported) Ondansetron (Ondansetron Odt), 1 TAB PO TIDP Pantoprazole Sodium (Protonix), 40 MG PO DAILY Potassium Chloride (Potassium Chloride), 20 MEQ PO DAILY, (Reported) Rosuvastatin Calcium (Crestor), 40 MG PO DAILY, (Reported) Triamcinolone Acet (Triamcinolone Acetonide 0.1% Crm), 1 APLCT TOP BID Scheduled PRN Furosemide (Lasix), 40 MG PO DAILY PRN for FLUID RETENTION, (Reported) Nitroglycerin (Nitroglycerin), 1 TAB SL for CHEST PAIN, (Reported) Prochlorperazine Maleate (Prochlorperazine Maleate), 10 MG PO Q8HP PRN for NAUSEA Miscellaneous Medications Aspirin (Adult Low Dose Aspirin EC), 81 MG PO, (Reported) Budesonide/Formoterol (Symbicort 80-4.5 Mcg Inhaler), (Reported) Cyanocobalamin (Cyanocobalamin Injection), (Reported) Discontinued Medications Dexamethasone (Decadron), 4 MG PO BID Discontinued Reason: Pt states not taking Fenofibrate Nanocrystallized (Tricor), 145 MG PO DAILY, (Reported) Discontinued Reason: Pt states not taking Sildenafil Citrate (Sildenafil), (Reported) Discontinued Reason: Pt states not taking Tamsulosin HCl (Flomax), 0.4 MG PO DAILY, (Reported) Discontinued Reason: Pt states not taking VS, I&O, 24H, Tiffany Laboratory Data 24H LABS Laboratory Tests 2 10/09/20 08:17: CBC/BMP NELDA CACERES MD Oct 09, 2020 08:23
[2020-10-09 08:28] LABS: HEMATOCRIT 42.8 % (42.0-52.0); HEMOGLOBIN 13.8 g/dl (13.5-17.5); MEAN CORPUSCULAR HEMOGLOBIN 29.6 pg (27.0-33.0); MEAN CORPUSCULAR HGB CONC 32.2 g/dl (32.0-36.5); MEAN CORPUSCULAR VOLUME 91.6 fl (80.0-96.0); PLATELET COUNT, AUTOMATED 237 10^3/uL (150-450); RED BLOOD COUNT 4.67 10^6/uL (4.30-6.10); WHITE BLOOD COUNT 4.9 10^3/uL (4.0-10.0)
[2020-10-09 08:42] LABS: INR 1.02; PROTHROMBIN TIME 13.6 SECONDS (12.5-14.3)
[2020-10-09 08:45] LABS: CALCIUM LEVEL 9.5 MG/DL (8.8-10.2); CREATININE FOR GFR 1.77 MG/DL (0.70-1.30); GLOMERULAR FILTRATION RATE 39.8 (>42); POTASSIUM SERUM 3.6 MEQ/L (3.5-5.1)
[2020-10-09 15:45] VITALS: BP 161/70
--- NOTE | 2020-10-12 11:11 | IRPON ---
IR Postoperative Note Date Of Procedure: Oct 09, 2020 Time Of Procedure: 16:00 IR Postoperative Note IR Right leg angiogram IR Below-knee runoff arteriogram. IR Ultrasound-guided left common femoral artery access. IR Right superficial femoral artery angioplasty. IR Right popliteal artery angioplasty. IR Moderate sedation. Clinical Information:Right lower extremity claudication and rest pain. Physician: Dr. Hamm. Procedure: The patient was advised of the benefits, risks, and alternatives of the procedure and informed consent was obtained. A time out was performed with verification of the patient's name, MRN, site of procedure, and type of procedure to be performed. The patient was positioned in the supine position on the angiographic table. The site was prepped and draped i n the usual sterile fashion. Moderate sedation was performed by the physician including the presence of an independent trained RN, who assisted in monitoring the patient's level of consciousness and physiological status. Following the administration of f entanyl and Versed, the physician spent 120 minutes of continuous [id number] time with the patient. A residential property manager radiograph reveals hardware in the right hip. Ultrasound of the left groin demonstrates calcified left common femoral artery. Lidocaine was used for local anesthesia. The left common femoral artery was accessed, under ultrasound guidance with a microintroducer set. A short 0.018" [place] wire was inserted and the needle was exchanged for a 4 Fr microintroducer sheath. The guidewire and dilator were removed and a 0.035" [place] wire was advanced under fluoroscopy guidance and placed into the abdominal aorta. A 6 Fr sheath was placed over the wire. An omni-flush catheter was then advanced over the wire, under fluoroscopy guidance and used to catheterize the infrarenal abdominal aorta. A pelvic arteriogram was performed and this demonstrates, unremarkable infrarenal abdom inal aorta. Patent bilateral common iliac, internal iliac and external iliac arteries. The omni-flush catheter was used in conjunction with a wire, to gain up and over access into the right common iliac artery. The catheter was removed [id number] and a glide cath was advanced over the wire, under fluoroscopy guidance and used to catheterize the right common femoral artery. A right leg angiogram was performed and this demonstrates, patent right common femoral, proximal superficial femoral and profunda femoris. Angiography further down the right leg was performed and demonstrates, focal greater than 90% stenosis in the distal superficial femoral artery and focal stenosis approximately 80%, in the P1/P2 segment of the popliteal artery. A below-knee runoff arteriogram was performed and this demonstrates patent anterior tibial artery and peroneal artery. Occluded posterior tibial artery. Runoff to the right foot demonstrates anterior tibial artery remains patent, coursing into the foot. Patent dorsalis pedis. Peroneal artery remains patent to the ankle and then reconstitutes the distal posterior tibial artery at the ankle. Patent calcaneal and plantar branches. The posterior tibial artery does not contribute direct in-line runoff to the right foot. The catheter was removed [id number]. The short sheath was exchanged, [id number], under fluoroscopic guidance, for a long up and over destination sheath. The tip of this was positioned under fluoroscopy guidance, at the right common femoral artery. A 6 x 200 mm [place] balloon was advanced over the wire, under fluoroscopy guidance and positioned in the mid and distal right superficial femoral artery. Angioplasty was performed. Heparin was administered. The balloon was deflated and then repositioned to the distal superficial femoral artery and proximal popliteal artery. Angioplasty was performed. The balloon was deflated and removed [id number]. A post angioplasty follow-up arteriogram was performed through the sheath, tip located in the right common femoral artery. This demonstrates resolution of the 2 focal stenosis in the right superficial femoral artery and popliteal artery with improved flow in the superficial femoral and popliteal artery. A follow-up post angioplasty arteriogram to the right foot was performed and this demonstrates, faster flow to the distal popliteal artery, good flow in anterior tibial and peroneal artery. Anterior tibial artery remains patent all the way to the foot and dorsalis pedis is patent. Peroneal artery remains patent and supplies of distal posterior tibial artery as described before. No distal emboli, vessel spasm or cut off. No extravasation. The long sheath was exchanged under fluoroscopy guidance for a short sheath. The wire was removed and a 6 Brazilian Mynx device was used to close the left groin arteriotomy. Hemostasis achieved and a sterile dressing was applied to the site. The patient tolerated the procedure well and was returned to the PRU in stable condition. EBL: < 5 mL. Complications:None. Impression: 1. Right leg angiogram demonstrates focal 80-90% stenosis in the distal superficial femoral artery and proximal popliteal artery. 2. Below-knee runoff demonstrates patent anterior tibial artery and peroneal artery. Occluded posterior tibial artery. 3. Successful distal SFA and popliteal artery angioplasty with improved flow to the right foot. If patient's symptoms recur or persist, will bring patient back for posterior tibial artery recanalization. 4. Patient to follow-up in our clinic in 2 weeks. Resume Eliquis the day after the procedure. Thank you for this referral. Cc NELDA Beal MD Oct 12, 2020 11:11
== END ==
LOC: M IRPRO 07:37
PROVIDERS: ATTEND Radiology Diagnostic Radiology
DX: I70.211 Atherosclerosis of native arteries of extremities with intermittent claudication, right leg (principal); I70.221 Atherosclerosis of native arteries of extremities with rest pain, right leg; I70.202 Unspecified atherosclerosis of native arteries of extremities, left leg; Z79.82 Long term (current) use of aspirin; Z79.890 Hormone replacement therapy; Z79.899 Other long term (current) drug therapy
CPT/HCPCS: 37224; 75630; 75774; 80048; 85027; 85610; 99152; 99153; C1725; C1760; C1769; C1887; C1894; J1200; J1644; J2250; J3010; Q9967

== ENCOUNTER → 2020-10-18 | Outpatient (CLI) | payer MEDICARE, OTHER ==
[~2020-10-18] MED LIST changes: +GASTROGRAFIN SOLUTION 30ML (Q9963) As Ordered ONE; -ISOVUE-300 61% 50ML VIAL As Ordered ONE; -LIDOCAINE 1% MDV 20ML VIAL As Ordered ONE; -MIDAZOLAM INJ 2MG/2ML VIAL (J2250 PER 1MG) As Ordered ONE; -NS 1,000 ML IV SCH; -VANCOMYCIN 1000MG/20ML VIAL As Ordered ONE; -diphenhydrAMINE 50MG/ML VIAL (J1200) As Ordered ONE; -fentaNYL 100 MCG/2 ML INJECTION (J3010) As Ordered ONE
--- NOTE | 2020-10-18 12:33 | REP ---
INDICATION: ESOPHOGUS CARCINOMA. COMPARISON: Multiple latest 05/31/2020 TECHNIQUE: Standard helical technique after the oral administration of bowel preparatory contrast only. No intravenous contrast was administered. This causes exam limitations. FINDINGS: The solid intra-organs and gallbladder are unchanged. No gross abnormality has developed. The pancreas, adrenal glands, and kidneys are stable. Once again, bilateral renal cysts are suspected but seen in limited fashion. There is no significant change in appearance of the abdominal aorta or para-aortic regions. No free fluid or free air has developed. There is no significant change in appearance of the bowel loops or the mesenteries. There is new fatty infiltration in the left groin and inguinal region. Once again, spray artifact is seen arising from a right hip prosthesis obscuring the pelvic detail. IMPRESSION: There is new fatty infiltration in the left groin left inguinal region extending slightly into the left hemipelvic adipose the etiology of which is uncertain. Finding has the appearance of a hematoma but needs to be correlated clinically with close follow-up. The densest portion of this measures approximately 3.1 x 2.2 by 1.6 cm and it is just anterior to the common femoral artery. I have not been given recent history of vascular instrumentation. Clinical correlation and close follow-up is recommended. <Electronically signed by Raza Dugan > 10/18/20 [id number]
--- NOTE | 2020-10-18 12:44 | REP ---
INDICATION: MALIGNANT NEOPLASM OF ESOPHAGUS COMPARISON: Multiple the latest 06/01/2020 TECHNIQUE: Standard helical technique without intravenous contrast administration FINDINGS: There is no significant change in appearance of the mediastinum or pulmonary anthony. No pleural or pericardial effusions have developed. There is no change in the imaged osseous structures. Evaluation of the lung march shows the 2 well-defined asymmetric somewhat spiculated nodules in the superior segment of the right lower lobe 2 appear to have coalesced with 1 large asymmetric density which has air bronchograms within it. Scattered bibasilar ground-glass opacities seen on the latest prior examination have improved or resolved. Persistent chronic lung field changes are again noted with cylindrical bronchiectasis. There is unchanged subtle biapical pleuroparenchymal scarring. IMPRESSION: 1. Asymmetric density in the superior segment of the right lower lobe as described above. The finding may be the sequelae of post radiation change, however, I have not been given the history of radiation since the last exam. 2. Other chronic lung field changes and with some improvement as described above. 3. Other findings as described above. Continued surveillance is recommended. Consider PET-CT if clinically relevant. <Electronically signed by Raza Dugan > 10/18/20 [id number]
== END ==
LOC: M RAD 09:40
PROVIDERS: ATTEND General Practice
DX: C15.9 Malignant neoplasm of esophagus, unspecified (principal)
CPT/HCPCS: 71250; 74176; Q9963

== ENCOUNTER → 2020-10-20 | Outpatient (CLI) | payer MEDICARE, OTHER ==
[~2020-10-20] MED LIST changes: -GASTROGRAFIN SOLUTION 30ML (Q9963) As Ordered ONE
--- NOTE | 2020-10-20 13:12 | RADONC ---
Radiation Oncology Hx/FUP Radiation Oncology Hx/FUP Date of Service: Oct 20, 2020 Pt Identifier Anthony Gauthier is a 80 year old male seen for a followup visit today at the department of radiation oncology for a history of mid-esophageal SCC [id number] stage II s/p neoadjuvant [place] doublet chemotherapy completed 07/23/19 (patient declined chemoradiation initially) with CR. He underwent consolidative RT to the primary site alone 40 Gy in 15 fractions completed 03/03/20. Diagnosis/Treatment History Oncologic History Multiple medical comorbidities CKD, CVA, CAD, s/p AICD, LISA, PAF, Neuropathy 2017 dysphagia and weight loss 12/21/18 EGD biopsy showing mid esophageal SCC ECOG 3 at presentation not surgical candidate. Refused concurrent chemoradiation initially Baseline neck CT 01/14/2019 with ill-defined soft tissue prominence near/posterior to vocal cord level with uptake on PET uncertain etiology. PET CT 01/12/2019 mid esophageal mass with wall thickening, SUV 11.5; 1 cm hypermetabolic focus at vocal cord posteriorly, SUV 6.9. Abdomen and pelvis CT 12/23/2018 no specific abnormalities identified. Carbo taxol chemotherapy 02/06/19-07/23/[address] 06/23/2019 no abnormal hypermetabolic uptake, no neck mass or adenopathy. No hilar or mediastinal uptake. Previously noted esophageal wall thickening and circumferential distal esophageal uptake resolved. PET CT 10/05/2019 negative for hypermetabolic uptake. 02/14/20-03/03/20 Consolidative RT to the primary site 40 Gy in 15 fractions 06/01/20 CT chest concern for new RLL nodules. CT abdomen negative. 06/16/20 Biopsy of RLL nodule negative 07/17/20 PET-CT with low grade uptake in the RLL consistent with inflammation Recent data: 10/18/20 CT chest abdomen pelvis negative for evidence of recurrence. Interval History Corona is here with good appetite and stable weight. His JIMENEZ is stable. He recently underwent LE angioplasty for his PVD. Has improved sensation in the BL LE. He has some cough productive of clear sputum. He has chronic neck pain, saw a surgeon who gave long odds of benefit from operating on his cervical spine. Corona however reports he is doing alright. He intends to go to [place] in February and return in July 2021. 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 Allergies / Meds Allergies: Coded Allergies: No Known Allergies (Verified , 12/18/18) Home Meds Active Scripts Lorazepam (Ativan) 1 Mg Tablet, 1 MG PO ONCE for before PET MDD 2mg, #2 TAB 0 Refills Prov:NORAM MARTINES MD 06/27/20 Triamcinolone Acet (Triamcinolone Acetonide 0.1% Crm) 80 Gm Cream..g., 1 APLCT TOP BID for 10 Days, #80 GRAM 11 Refills Prov:Humaira Soriano MD 05/14/19 Pantoprazole Sodium (Protonix) 40 Mg Tab, 40 MG PO DAILY for 30 Days, #30 TAB Prov:Hellen Barba MD 01/15/19 Reported Medications Mirabegron (Myrbetriq) 25 Mg Tab.er.24h, 10 MG PO DAILY for 30 Days, #30 TAB 06/14/20 Finasteride (Proscar) 5 Mg Tablet, 1 TAB PO DAILY for 30 Days, #30 TAB 02/21/20 Glipizide (Glipizide) 10 Mg Tablet, 1 TAB PO BID for 30 Days, #60 TAB 06/28/19 Aspirin (Adult Low Dose Aspirin EC) 81 Mg Tablet.dr, 81 MG PO 05/14/19 Apixaban (Eliquis) 5 Mg Tablet, 5 MG PO BID for 30 Days, #60 TAB 05/14/19 Budesonide/Formoterol (Symbicort 80-4.5 Mcg Inhaler) 6.9 Gm Hfa.aer.ad 04/01/19 Cyanocobalamin (Cyanocobalamin Injection) 1,000 Mcg/1 Ml Vial 04/01/19 Magnesium Chloride (Mag64) 64 Mg Tablet.dr, 64 MG PO DAILY for 30 Days, #30 TAB 01/07/19 Metformin HCl (Metformin HCl) 500 Mg Tablet, 500 MG PO DAILY 12/18/18 Potassium Chloride (Potassium Chloride) 20 Meq Tablet.er, 20 MEQ PO DAILY 12/18/18 Fluticasone/Umeclidin/Vilanter (Trelegy Ellipta 100-62.5-25) 1 Each Blst.w.dev, 1 INH PO DAILY 12/18/18 Losartan Potassium (Losartan Potassium) 50 Mg Tablet, 50 MG PO DAILY 12/18/18 Montelukast Sodium (Montelukast Sodium) 10 Mg Tablet, 10 MG PO DAILY 12/18/18 Hydrochlorothiazide (Hydrochlorothiazide) 25 Mg Tablet, 25 MG PO DAILY 12/18/18 Diclofenac Sodium (Diclofenac Sodium) 3 % Gel, 3 % TD PRN, GEL APPLIED TO LEGS 11/17/16 Nitroglycerin (Nitroglycerin) 0.4 Mg Sub, 1 TAB SL PRN for CHEST PAIN 11/17/16 Rosuvastatin Calcium (Crestor) 40 Mg Tab, 40 MG PO DAILY, TAB 11/17/16 Metoprolol Succinate (Metoprolol Succinate) 50 Mg Tab, 50 MG PO DAILY, TAB 09/20/16 Furosemide (Lasix) 40 Mg Tab, 40 MG PO DAILY PRN for FLUID RETENTION, TAB 09/20/16 Discontinued Scripts Ondansetron (Ondansetron Odt) 8 Mg Tab.rapdis, 1 TAB PO TIDP for 7 Days, #30 TAB Prov:SANTOSH SERRANO MD 03/08/20 Prochlorperazine Maleate (Prochlorperazine Maleate) 10 Mg Tablet, 10 MG PO Q8HP PRN for NAUSEA for 7 Days, #30 TAB Prov:Humaira Soriano MD 01/27/19 Review of Systems Review of Systems Constitutional: Reports: Fatigue; Denies: Chills, Fever, Weight Loss Eyes: Denies: Pain HEENT: Denies: Head Aches Skin: Denies: Rash Pulmonary: Reports: Dyspnea, Cough Cardiovascular: Denies: Chest Pain Gastrointestinal: Denies: Nausea, Vomiting, Abdominal Pain Hematologic: Reports: Bruising; Denies: Bleeding Excessively Endocrine: Denies: Cold Intolerance Musculoskeletal: Reports: Neck pain, Back pain, Leg pain Neurological: Denies: Weakness, Numbness Psych: Reports: Mood Normal Physical Examination Vital Signs Wt 247 lbs T 98 P 77 RR 22 BP 146/82 O2 95% Pain 0 Fatigue 1 General Exam: Positive: Alert, Cooperative, No Acute Distress Eye Exam: Positive: PERRLA, EOMI ENT EXAM: Positive: Atraumatic Neck Exam: Positive: Supple; Negative: Lymphadenopathy Chest Exam: Positive: Clear to auscultation, Normal air movement; Negative: Rhonchi, Wheezing Heart Exam: Positive: Rate Normal, Regular Rhythm Abdomen Exam: Positive: Soft Extremity Exam: Negative: Edema Skin Exam: Positive: Nl turgor and temperature Neuro Exam: Positive: Normal Gait, Normal Speech, Cranial Nerves 3-12 NL Psych Exam: Positive: Mental status NL Diagnostic and Laboratory Diagnostic Review Radiologic images, relevant labs and pathology reports were personally reviewed and discussed with Mr. Gauthier. Assessment and Plan Impression Assessment Mr. Gauthier is a 80 year old male with a history of mid-esophageal SCC [id number] stage II s/p neoadjuvant [place] doublet chemotherapy completed 07/23/19 (patient declined chemoradiation initially) with CR. He underwent consolidative RT to the primary site alone 40 Gy in 15 fractions completed 03/03/20. His RLL nodular lesions, which were biopsied in May have resolved on the present scans. There is no evidence of recurrent or progressive disease on these. He is doing well clinically without any lingering dysphagia from radiation. In an ideal scenario I would obtain scans again in 6 months time, however he intends to leave for [place] in February 2021 and return in July. Therefore next scans will be in January 2021 and then we can see him again when [place]. Performance Status ECOG 2 Plan CTs and follow up in January 2021 prior to travel to [place] Encouraged him to exercise Mr. Gauthier was encouraged to call with questions or concerns in the interim period. Billing Statement Total time of [32] minutes was spent preparing for the visit [2], obtaining HPI [4], examining the patient [3], reviewing diagnostic tests [2], discussing management options [10], coordinating care [2], and writing this note [9]. SANTOSH SERRANO MD Oct 20, 2020 13:12
== END ==
LOC: M ONCR 10:49
PROVIDERS: ATTEND General Practice
DX: C15.4 Malignant neoplasm of middle third of esophagus (principal); F17.210 Nicotine dependence, cigarettes, uncomplicated; G47.33 Obstructive sleep apnea (adult) (pediatric); G62.9 Polyneuropathy, unspecified; G89.29 Other chronic pain; I25.10 Atherosclerotic heart disease of native coronary artery without angina pectoris; I48.0 Paroxysmal atrial fibrillation; I73.9 Peripheral vascular disease, unspecified; M54.2 Cervicalgia; N18.9 Chronic kidney disease, unspecified; R05 Cough; Z77.090 Contact with and (suspected) exposure to asbestos; Z79.82 Long term (current) use of aspirin; Z79.890 Hormone replacement therapy; Z79.899 Other long term (current) drug therapy; Z86.73 Personal history of transient ischemic attack (TIA), and cerebral infarction without residual deficits; Z92.21 Personal history of antineoplastic chemotherapy; Z92.3 Personal history of irradiation; Z95.810 Presence of automatic (implantable) cardiac defibrillator

== ENCOUNTER → 2020-10-24 | Outpatient (POV) | payer MEDICARE, OTHER ==
[~2020-10-24] VITALS: Ht 190.5 cm; Wt 110.0 kg
[2020-10-24 08:50] VITALS: BP 159/72
--- NOTE | 2020-10-25 12:26 | IRPN ---
[facility] IR Progress Note IR Progress Note DATE: Oct 24, 2020 FOLLOW-UP: Doing well, now status post bilateral lower extremity angiography and SFA and popliteal artery angioplasty. Patient denies any intermittent claudication or rest pain. Patient does have chronic back pain for which he has seen orthopedic surgery and they have advised against any kind of back surgery. The pain in his back now affects his daily activities. Patient does also suffer with erectile dysfunction. Angiography demonstrated patent bilateral internal iliac arteries. However, patient does have diabetes and continues to smoke. He is due to see urology about his erectile dysfunction. ON EXAMINATION: Bilateral groin access sites healed up without any issues. No bruising. No pulsatile mass. Bilateral lower extremities normal in color and temperature. IMPRESSION: Doing well status post bilateral lower extremity angiography and SFA and popliteal artery angioplasty. No further intermittent claudication or rest pain. Patient will be referred to the pain specialist for his chronic back pain. Thank you for this referral. Cc Dr. Reynoso Allergies Coded Allergies: No Known Allergies (Verified , 12/18/18) VS,Fishbone, I+O VS, Fishbone, I+O Vital Signs Date Time Temp Pulse Resp B/P (MAP) Pulse Ox O2 Delivery O2 Flow Rate FiO2 10/24/20 08:50 97.9 85 18 159/72 (101) 97 Room Air NELDA CACERES MD Oct 25, 2020 12:26
== END ==
LOC: M IRPOV 08:42
PROVIDERS: ATTEND Radiology Diagnostic Radiology
DX: Z48.812 Encounter for surgical aftercare following surgery on the circulatory system (principal); E11.9 Type 2 diabetes mellitus without complications; M54.9 Dorsalgia, unspecified; G89.29 Other chronic pain; N52.9 Male erectile dysfunction, unspecified; F17.210 Nicotine dependence, cigarettes, uncomplicated

== ENCOUNTER → 2020-12-14 | Outpatient (REF) | payer MEDICARE, OTHER | LOC: M LAB REF 16:39 | PROVIDERS: ATTEND Registered Nurse | DX: R51.9 Headache, unspecified (principal) ==

== ENCOUNTER → 2020-12-18 | Outpatient (CLI) | payer MEDICARE, OTHER ==
--- NOTE | 2020-12-18 08:55 | REPVR ---
PROCEDURE INFORMATION: Exam: CT Head Without Contrast Exam date and time: 12/18/2020 8:39 AM Age: 80 years old Clinical indication: Pain; Headache; Additional info: Severe RT side MARTIN TECHNIQUE: Imaging protocol: Computed tomography of the head without contrast. Radiation optimization: All CT scans at this facility use at least one of these dose optimization techniques: automated exposure control; mA and/or kV adjustment per patient size (includes targeted exams where dose is matched to clinical indication); or iterative reconstruction. COMPARISON: CT Head without contrast 11/18/2016 9:20 AM FINDINGS: Brain: There is no acute intracranial hemorrhage or mass effect. Moderate diffuse volume loss is within the range of normal for patient age. There are small vessel ischemic changes within the periventricular and subcortical white matter, but the normal fox-white matter delineation is maintained. There is left parietal encephalomalacia. Cerebral ventricles: Prominence of the ventricular system is commensurate with volume loss. Paranasal sinuses: Visualized sinuses are unremarkable. No fluid levels. Mastoid air cells: Visualized mastoid air cells are well aerated. Bones/joints: Unremarkable. No acute fracture. Soft tissues: Unremarkable. IMPRESSION: No acute intracranial hemorrhage or edema. Electronically signed by: Dorothea Villafuerte On 12/18/2020 08:55:11 AM
== END ==
LOC: M RAD 08:35
PROVIDERS: ATTEND Registered Nurse
DX: R51.9 Headache, unspecified (principal)

== ENCOUNTER → 2021-02-19 | Outpatient (CLI) | payer MEDICARE, OTHER ==
[~2021-02-19] MED LIST changes: +FLUO1CRE2 TOP; +GASTROGRAFIN SOLUTION 30ML (Q9963) As Ordered ONE
--- NOTE | 2021-02-19 11:34 | REP ---
INDICATION: ESO CA COMPARISON: Multiple the latest 10/18/2020 also without contrast TECHNIQUE: Standard helical technique without contrast FINDINGS: There is no significant change in appearance of the mediastinum or pulmonary anthony. No mass or adenopathy has developed. There are no pleural or pericardial effusions. There is no significant change in appearance of the imaged upper abdomen or imaged osseous structures. Multiple old rib fractures are noted bilaterally status quo and there are spinal degenerative changes and discogenic changes status quo. Evaluation of the lung march shows no significant change in the asymmetric somewhat pleural based density in the superior segment of the right lower lobe. No new abnormal nodules, masses, or opacities have developed. There is mild stable cylindrical bronchiectasis status quo. IMPRESSION: Stable CT examination of the chest with findings as described above. <Electronically signed by Raza Dugan > 02/19/21 [id number]
--- NOTE | 2021-02-19 13:02 | REP ---
INDICATION: ESO CA. COMPARISON: Multiple the latest 10/18/2020 also without contrast TECHNIQUE: Standard helical technique without intravenous contrast. Oral bowel preparatory contrast was administered prior to the exam. FINDINGS: The lung bases are unchanged from the prior chest CT of 10/18/2020. There are no new abnormalities. There are no pleural or pericardial effusions. The liver, gallbladder, spleen, pancreas, adrenal glands, and kidneys are essentially unchanged. There are 2 simple left renal cysts status quo and a simple right renal cyst status quo. The abdominal aorta and para-aortic regions are essentially unchanged. Calcific atherosclerotic changes noted status quo. There is no significant change in appearance of the bowel loops or the mesenteries. There is no evidence of a mass or adenopathy. There is no free fluid or free air. Once again, spray artifact arises from a right hip prosthesis obscuring multiple images of the pelvis. Bone window technique throughout the exam shows no significant change in appearance of the osseous structures. IMPRESSION: 1. The changes seen previously in the left groin have resolved. 2. There is no evidence of acute intra-abdominal or intrapelvic disease. Findings as described above. <Electronically signed by Raza Dugan > 02/19/21 [id number]
== END ==
LOC: M RAD 09:19
PROVIDERS: ATTEND Internal Medicine Medical Oncology
DX: C15.9 Malignant neoplasm of esophagus, unspecified (principal); N28.1 Cyst of kidney, acquired; Z96.641 Presence of right artificial hip joint
CPT/HCPCS: 71250; 74176; Q9963

== ENCOUNTER → 2021-02-23 | Outpatient (CLI) | payer MEDICARE, OTHER ==
[~2021-02-23] MED LIST changes: +BUPR150T12 PO; -GASTROGRAFIN SOLUTION 30ML (Q9963) As Ordered ONE
--- NOTE | 2021-02-23 12:00 | RADONC ---
Radiation Oncology Hx/FUP Radiation Oncology Hx/FUP Date of Service: Feb 23, 2021 Pt Identifier Anthony Gauthier is a 80 year old male current smoker seen for a followup visit today at the department of radiation oncology for a history of mid-esophageal SCC [id number] stage II s/p neoadjuvant [place] doublet chemotherapy completed 07/23/19 (patient declined chemoradiation initially) with CR. He underwent consolidative RT to the primary site alone 40 Gy in 15 fractions completed 03/03/20. Diagnosis/Treatment History Oncologic History Multiple medical comorbidities CKD, CVA, CAD, s/p AICD, LISA, PAF, Neuropathy 2017 dysphagia and weight loss 12/21/18 EGD biopsy showing mid esophageal SCC ECOG 3 at presentation not surgical candidate. Refused concurrent chemoradiation initially Baseline neck CT 01/14/2019 with ill-defined soft tissue prominence near/posterior to vocal cord level with uptake on PET uncertain etiology. PET CT 01/12/2019 mid esophageal mass with wall thickening, SUV 11.5; 1 cm hypermetabolic focus at vocal cord posteriorly, SUV 6.9. Abdomen and pelvis CT 12/23/2018 no specific abnormalities identified. Carbo taxol chemotherapy 02/06/19-07/23/[address] 06/23/2019 no abnormal hypermetabolic uptake, no neck mass or adenopathy. No hilar or mediastinal uptake. Previously noted esophageal wall thickening and circumferential distal esophageal uptake resolved. PET CT 10/05/2019 negative for hypermetabolic uptake. 02/14/20-03/03/20 Consolidative RT to the primary site 40 Gy in 15 fractions 06/01/20 CT chest concern for new RLL nodules. CT abdomen negative. 06/16/20 Biopsy of RLL nodule negative 07/17/20 PET-CT with low grade uptake in the RLL consistent with inflammation 10/18/20 CT chest abdomen pelvis negative for evidence of recurrence Recent data: 02/19/21 CT chest abdomen pelvis: Negative for malignancy Interval History [place] had a 2 day instance of dysphagia to solids ~ 2 weeks ago which resolved spontaneously. He had no pain with this. As of today he is eating all foods at will. He has stable weight and energy. Saw derm @ [facility] yesterday, had a number of lesions frozen off on the arms BL. Still smoking. Has desire to quit, also has been having depressed mood, unable to visit his at assisted living. Planning to go to [place] for the Winter sometime in February, will return July 2021. Current Therapy Surveillance Stage [id number] esophageal SCC stage II Social History: 50+ pack year current smoker Drinks 1 beer per day Exposed to asbestos occupationally Allergies / Meds Allergies: Coded Allergies: No Known Allergies (Verified , 12/18/18) Home Meds Active Scripts Bupropion Hcl (Bupropion Xl) 150 Mg Tab.er.24h, 1 TAB PO DAILY for Smoking cessation aid for 30 Days, #30 TAB 5 Refills Prov:SANTOSH SERRANO MD 02/23/21 Lorazepam (Ativan) 1 Mg Tablet, 1 MG PO ONCE for before PET MDD 2mg, #2 TAB 0 Refills Prov:NORMA MARTINES MD FACP 06/27/20 Triamcinolone Acet (Triamcinolone Acetonide 0.1% Crm) 80 Gm Cream..g., 1 APLCT TOP BID for 10 Days, #80 GRAM 11 Refills Prov:Humaira Soriano MD 05/14/19 Pantoprazole Sodium (Protonix) 40 Mg Tab, 40 MG PO DAILY for 30 Days, #30 TAB Prov:Hellen Barba MD 01/15/19 Reported Medications Fluorouracil (Fluorouracil) 5% 40GM Cream..g., TOP ASDIRECTED 02/12/21 Mirabegron (Myrbetriq) 25 Mg Tab.er.24h, 10 MG PO DAILY for 30 Days, #30 TAB 06/14/20 Finasteride (Proscar) 5 Mg Tablet, 1 TAB PO DAILY for 30 Days, #30 TAB 02/21/20 Glipizide (Glipizide) 10 Mg Tablet, 1 TAB PO BID for 30 Days, #60 TAB 06/28/19 Aspirin (Adult Low Dose Aspirin EC) 81 Mg Tablet.dr, 81 MG PO DAILY 05/14/19 Apixaban (Eliquis) 5 Mg Tablet, 5 MG PO BID for 30 Days, #60 TAB 05/14/19 Budesonide/Formoterol (Symbicort 80-4.5 Mcg Inhaler) 6.9 Gm Hfa.aer.ad 04/01/19 Cyanocobalamin (Cyanocobalamin Injection) 1,000 Mcg/1 Ml Vial 04/01/19 Magnesium Chloride (Mag64) 64 Mg Tablet.dr, 64 MG PO DAILY for 30 Days, #30 TAB 01/07/19 Metformin HCl (Metformin HCl) 500 Mg Tablet, 500 MG PO DAILY 12/18/18 Potassium Chloride (Potassium Chloride) 20 Meq Tablet.er, 20 MEQ PO DAILY 12/18/18 Fluticasone/Umeclidin/Vilanter (Trelegy Ellipta 100-62.5-25) 1 Each Blst.w.dev, 1 INH PO DAILY 12/18/18 Losartan Potassium (Losartan Potassium) 50 Mg Tablet, 50 MG PO DAILY 12/18/18 Montelukast Sodium (Montelukast Sodium) 10 Mg Tablet, 10 MG PO DAILY 12/18/18 Hydrochlorothiazide (Hydrochlorothiazide) 25 Mg Tablet, 25 MG PO DAILY 12/18/18 Nitroglycerin (Nitroglycerin) 0.4 Mg Sub, 1 TAB SL PRN for CHEST PAIN 11/17/16 Rosuvastatin Calcium (Crestor) 40 Mg Tab, 40 MG PO DAILY, TAB 11/17/16 Metoprolol Succinate (Metoprolol Succinate) 50 Mg Tab, 50 MG PO DAILY, TAB 09/20/16 Furosemide (Lasix) 40 Mg Tab, 40 MG PO DAILY PRN for FLUID RETENTION, TAB 09/20/16 Review of Systems Review of Systems Constitutional: Denies: Fatigue, Weight Loss Eyes: Denies: Pain HEENT: Denies: Head Aches, Sore Throat Pulmonary: Denies: Dyspnea, Cough, Pleuritic Chest Pain Cardiovascular: Denies: Chest Pain, Edema Gastrointestinal: Denies: Abdominal Pain, Diarrhea Neurological: Denies: Weakness, Numbness Psych: Reports: Mood Normal Physical Examination Vital Signs Wt 242 lbs T 96.8 P 86 RR 18 BP 129/71 O2 100% Pain 0 Fatigue 0 General Exam: Alert, Cooperative, No Acute Distress Eye Exam: PERRLA, EOMI ENT EXAM: Atraumatic Neck Exam: Supple; Negative: Lymphadenopathy Chest Exam: Clear to auscultation, Normal air movement Heart Exam: Rate Normal, Regular Rhythm Abdomen Exam: Soft Extremity Exam: Negative: Edema Skin Exam: Nl turgor and temperature, Lesion (Numerous AK on arms s/p cryo) Neuro Exam: Normal Gait, Normal Speech, Cranial Nerves 3-12 NL Psych Exam: Mental status NL Diagnostic and Laboratory Diagnostic Review Radiologic images, relevant labs and pathology reports were personally reviewed and discussed with Mr. Gauthier. Assessment and Plan Impression Assessment Mr. Gauthier is a 80 year old male current smoker seen for a followup visit today at the department of radiation oncology for a history of mid-esophageal SCC [id number] stage II s/p neoadjuvant [place] doublet chemotherapy completed 07/23/19 (patient declined chemoradiation initially) with CR. He underwent consolidative RT to the primary site alone 40 Gy in 15 fractions completed 03/03/20. I reviewed his scans thoroughly and they have no evidence of recurrent or de efe disease. I think that his transient dysphagia is likely due to stenosis or web, s/p RT. We agreed to monitor for recurrence of dysphagia at this time. If it comes back, then I would refer him for an EGD and dilation either here in [place], or in [place] if he is there. We discussed his mood and smoking cessation for 4 minutes, he would like to quit, has tried before with limited success, he has also been having low mood. To facilitate a quit attempt and hopefully also improve his mood I recommended wellbutrin 150 mg daily. He agreed to try it. For follow up he can call at any time even if he is in [place], but otherwise I will see him again in July 2021 upon his return [place]. I will not order CTs unless symptoms dictate. Performance Status ECOG 1 Plan Start wellbutrin 150 mg daily Follow up in July 2021 Mr. Gauthier was encouraged to call with questions or concerns in the interim period. Billing Statement Total time of [32] minutes was spent preparing for the visit [3], obtaining HPI [5], examining the patient [3], reviewing diagnostic tests [5], discussing management options [7], coordinating care [2], and writing this note [7]. SANTOSH SERRANO MD Feb 23, 2021 12:00
== END ==
LOC: M ONCR 10:26
PROVIDERS: ATTEND General Practice
DX: C15.4 Malignant neoplasm of middle third of esophagus (principal); F17.210 Nicotine dependence, cigarettes, uncomplicated; Z77.090 Contact with and (suspected) exposure to asbestos; Z79.82 Long term (current) use of aspirin; Z79.84 Long term (current) use of oral hypoglycemic drugs; Z79.899 Other long term (current) drug therapy; Z92.21 Personal history of antineoplastic chemotherapy; Z92.3 Personal history of irradiation

== ENCOUNTER → 2021-03-24 | Outpatient (CLI) | payer MEDICARE, OTHER ==
[~2021-03-24] MED LIST changes: -CYAN1000VL; -SYMB80INH; +SYMB80INH INH
== END ==
LOC: M LABSMTC 09:30
PROVIDERS: ATTEND Anesthesiology
DX: Z01.818 Encounter for other preprocedural examination (principal); Z11.52 Encounter for screening for COVID-19

== ENCOUNTER 2021-03-28 08:24 | Day surgery (SDC) | payer MEDICARE, OTHER ==
[~2021-03-28] VITALS: Ht 190.5 cm; Wt 108.0 kg
[~2021-03-28 08:24] MED LIST changes: +LIDOCAINE 2% 100MG/5ML SDV (FOR ANES.) As Ordered ONE; +LOSA50TA28 PO; -LOSA50TA88 PO; -MONT10TA10 PO; +MONT10TA97 PO; +NS 1,000 ML IV ONE; +ONDA-84 PO; -ONDA8TAB10 PO; -PROC10TA4 PO; +PROC10TA5 PO; +fentaNYL 100 MCG/2 ML INJECTION As Ordered ONE; +propofoL 200 MG/20 ML VIAL As Ordered ONE
[2021-03-28 10:26] VITALS: BP 149/76
== END 2021-03-28 10:27 | disposition home or self-care (01) ==
LOC: M OPP 08:24
PROVIDERS: ATTEND Internal Medicine Gastroenterology
DX: K44.9 Diaphragmatic hernia without obstruction or gangrene (principal); K22.2 Esophageal obstruction; R13.10 Dysphagia, unspecified; C15.4 Malignant neoplasm of middle third of esophagus; R12 Heartburn; J44.9 Chronic obstructive pulmonary disease, unspecified; I50.9 Heart failure, unspecified; R93.3 Abnormal findings on diagnostic imaging of other parts of digestive tract; Z79.899 Other long term (current) drug therapy; Z95.5 Presence of coronary angioplasty implant and graft
CPT/HCPCS: 43239; 43249; 88305; J3010

== ENCOUNTER → 2021-05-29 | Outpatient (REF) | payer MEDICARE, OTHER ==
[~2021-05-29] MED LIST changes: -LIDOCAINE 2% 100MG/5ML SDV (FOR ANES.) As Ordered ONE; -NS 1,000 ML IV ONE; -fentaNYL 100 MCG/2 ML INJECTION As Ordered ONE; -propofoL 200 MG/20 ML VIAL As Ordered ONE
== END ==
LOC: M LAB REF 11:31
PROVIDERS: ATTEND Internal Medicine
DX: N52.9 Male erectile dysfunction, unspecified (principal); R53.83 Other fatigue; D51.9 Vitamin B12 deficiency anemia, unspecified

== ENCOUNTER → 2021-07-03 | Outpatient (CLI) | payer MEDICARE, OTHER | LOC: M RAD 10:57 | PROVIDERS: ATTEND Psychiatry & Neurology Neurology | DX: G20 Parkinson's disease (principal); I65.23 Occlusion and stenosis of bilateral carotid arteries; G93.89 Other specified disorders of brain ==

== ENCOUNTER → 2021-08-07 | Outpatient (CLI) | payer MEDICARE, OTHER ==
[~2021-08-07] MED LIST changes: +CARB25TA9 PO
== END ==
LOC: M ONCR 08:28
PROVIDERS: ATTEND General Practice
DX: C15.4 Malignant neoplasm of middle third of esophagus (principal); F17.210 Nicotine dependence, cigarettes, uncomplicated; Z79.82 Long term (current) use of aspirin; Z92.21 Personal history of antineoplastic chemotherapy; Z92.3 Personal history of irradiation

== ENCOUNTER → 2021-08-14 | Outpatient (CLI) | payer MEDICARE, OTHER | LOC: M PLAIMG 10:56 | PROVIDERS: ATTEND General Practice | DX: C15.4 Malignant neoplasm of middle third of esophagus (principal) ==

== ENCOUNTER → 2021-10-07 | Outpatient (CLI) | payer MEDICARE, OTHER ==
[~2021-10-07] MED LIST changes: -DICL1GEL TD; +DICL3GEL2 TD
== END ==
LOC: M LABSMTC 10:51
PROVIDERS: ATTEND Anesthesiology
DX: Z01.812 Encounter for preprocedural laboratory examination (principal)

== ENCOUNTER 2021-10-08 10:36 | Day surgery (SDC) | payer MEDICARE, OTHER ==
[~2021-10-08] VITALS: Ht 190.5 cm; Wt 105.1 kg
[~2021-10-08 10:36] MED LIST changes: +NS 1,000 ML IV ONE
[2021-10-08] MEDS ORDERED: propofoL 200 MG/20 ML VIAL As Ordered ONE (11:03)
[2021-10-08] MEDS ORDERED: fentaNYL 100 MCG/2 ML INJECTION As Ordered ONE (11:03)
[2021-10-08] MEDS ORDERED: LIDOCAINE 2% 100MG/5ML SDV (FOR ANES.) As Ordered ONE (11:03)
[2021-10-08 12:49] VITALS: BP 181/88
== END 2021-10-08 13:00 | disposition home or self-care (01) ==
LOC: M OPP 10:36
PROVIDERS: ATTEND Internal Medicine Gastroenterology
DX: K22.89 Other specified disease of esophagus (principal); K22.2 Esophageal obstruction; R13.10 Dysphagia, unspecified; Z79.01 Long term (current) use of anticoagulants; Z79.82 Long term (current) use of aspirin; Z79.84 Long term (current) use of oral hypoglycemic drugs; Z79.899 Other long term (current) drug therapy; Z95.0 Presence of cardiac pacemaker; Z85.01 Personal history of malignant neoplasm of esophagus; Z92.3 Personal history of irradiation; F17.210 Nicotine dependence, cigarettes, uncomplicated
CPT/HCPCS: 43249; J3010

== ENCOUNTER → 2022-01-29 | Outpatient (CLI) | payer MEDICARE, OTHER ==
[~2022-01-29] MED LIST changes: -NS 1,000 ML IV ONE
== END ==
LOC: M ONCR 10:20
PROVIDERS: ATTEND General Practice
DX: Z08 Encounter for follow-up examination after completed treatment for malignant neoplasm (principal); Z85.01 Personal history of malignant neoplasm of esophagus; K22.2 Esophageal obstruction; F17.210 Nicotine dependence, cigarettes, uncomplicated; Z79.01 Long term (current) use of anticoagulants; Z79.82 Long term (current) use of aspirin; Z79.51 Long term (current) use of inhaled steroids; Z79.84 Long term (current) use of oral hypoglycemic drugs; Z79.899 Other long term (current) drug therapy; Z92.21 Personal history of antineoplastic chemotherapy; Z92.3 Personal history of irradiation

== ENCOUNTER → 2022-02-03 | Outpatient (CLI) | payer MEDICARE, OTHER ==
[~2022-02-03] MED LIST changes: +FENO1CAP16 PO; +FLUO1CRE2; +GABA-282
== END ==
LOC: M LABSMTC 10:56
PROVIDERS: ATTEND Anesthesiology
DX: Z01.812 Encounter for preprocedural laboratory examination (principal); Z20.822 Contact with and (suspected) exposure to COVID-19

== ENCOUNTER 2022-02-06 06:46 | Day surgery (SDC) | payer MEDICARE, OTHER ==
[~2022-02-06] VITALS: Ht 193 cm; Wt 105.6 kg
[~2022-02-06 06:46] MED LIST changes: +NS 1,000 ML IV ONE
[2022-02-06] MEDS ORDERED: propofoL 200 MG/20 ML VIAL As Ordered ONE (07:09)
[2022-02-06] MEDS ORDERED: LIDOCAINE 2% 100MG/5ML SDV (FOR ANES.) As Ordered ONE (07:09)
[2022-02-06] MEDS ORDERED: fentaNYL 100 MCG/2 ML INJECTION As Ordered ONE (07:35)
[2022-02-06 08:05] VITALS: BP 123/64
== END 2022-02-06 08:17 | disposition home or self-care (01) ==
LOC: M OPP 06:46
PROVIDERS: ATTEND Internal Medicine Gastroenterology
DX: K22.89 Other specified disease of esophagus (principal); K22.2 Esophageal obstruction; Z79.01 Long term (current) use of anticoagulants; Z79.02 Long term (current) use of antithrombotics/antiplatelets; Z79.51 Long term (current) use of inhaled steroids; Z79.82 Long term (current) use of aspirin; Z79.84 Long term (current) use of oral hypoglycemic drugs; Z79.899 Other long term (current) drug therapy; F17.200 Nicotine dependence, unspecified, uncomplicated; G47.30 Sleep apnea, unspecified; I11.9 Hypertensive heart disease without heart failure; E78.00 Pure hypercholesterolemia, unspecified; J44.9 Chronic obstructive pulmonary disease, unspecified; I48.91 Unspecified atrial fibrillation; Z85.01 Personal history of malignant neoplasm of esophagus; Z92.21 Personal history of antineoplastic chemotherapy; Z86.73 Personal history of transient ischemic attack (TIA), and cerebral infarction without residual deficits
CPT/HCPCS: 43249; J3010

== ENCOUNTER → 2022-02-28 | Outpatient (REF) | payer MEDICARE, OTHER ==
[~2022-02-28] MED LIST changes: -NS 1,000 ML IV ONE
[2022-02-28 19:37] LABS: TESTOSTERONE 531 NG/DL (241-827); VITAMIN B12 LEVEL 1103 PG/ML (247-911)
== END ==
LOC: M LAB REF 11:46
PROVIDERS: ATTEND Internal Medicine
DX: D51.9 Vitamin B12 deficiency anemia, unspecified (principal); R53.83 Other fatigue; N52.9 Male erectile dysfunction, unspecified

== ENCOUNTER → 2022-04-17 | Outpatient (CLI) | payer MEDICARE, OTHER | LOC: M RAD 08:20 | PROVIDERS: ATTEND Physician Assistant Medical | DX: M79.641 Pain in right hand (principal); M25.531 Pain in right wrist ==

== ENCOUNTER → 2022-04-17 | Outpatient (CLI) | payer MEDICARE, OTHER ==
[~2022-04-17] MED LIST changes: +GASTROGRAFIN SOLUTION 30ML As Ordered ONE; +ISOVUE-370 76% 100ML VIAL As Ordered ONE; +TAMS1CAP17 PO
== END ==
LOC: M RAD 08:23
PROVIDERS: ATTEND General Practice
DX: C15.4 Malignant neoplasm of middle third of esophagus (principal); M79.641 Pain in right hand; M25.531 Pain in right wrist
CPT/HCPCS: 71260; 73110; 73130; 74177; Q9963; Q9967

== ENCOUNTER → 2022-04-25 | Outpatient (CLI) | payer MEDICARE, OTHER ==
[~2022-04-25] MED LIST changes: -GASTROGRAFIN SOLUTION 30ML As Ordered ONE; -ISOVUE-370 76% 100ML VIAL As Ordered ONE
== END ==
LOC: M ONCR 12:18
PROVIDERS: ATTEND General Practice
DX: C15.4 Malignant neoplasm of middle third of esophagus (principal); F17.210 Nicotine dependence, cigarettes, uncomplicated; N18.9 Chronic kidney disease, unspecified; I25.10 Atherosclerotic heart disease of native coronary artery without angina pectoris; I48.91 Unspecified atrial fibrillation; G47.30 Sleep apnea, unspecified; G62.9 Polyneuropathy, unspecified; R53.83 Other fatigue; R60.9 Edema, unspecified; Z77.090 Contact with and (suspected) exposure to asbestos; Z79.82 Long term (current) use of aspirin; Z79.899 Other long term (current) drug therapy; Z92.3 Personal history of irradiation

== ENCOUNTER → 2022-04-26 | Outpatient (CLI) | payer MEDICARE, OTHER ==
[2022-04-26 12:26] LABS: CK-MB VALUE MASS < 1.0 NG/ML (<3.6); LIPASE 34 U/L (12-53)
[2022-04-26 12:33] LABS: CPK CREATINE PHOSPHOKINASE 35 U/L (46-171); MB/CK RELATIVE INDEX 2.85 (< OR =4)
== END ==
LOC: M WUC 11:18
PROVIDERS: ATTEND Internal Medicine
DX: R10.13 Epigastric pain (principal); R07.9 Chest pain, unspecified; R05.9 Cough, unspecified

== ENCOUNTER → 2022-05-20 | Outpatient (CLI) | payer MEDICARE, OTHER | LOC: M LABSMTC 09:53 | PROVIDERS: ATTEND Anesthesiology | DX: Z01.818 Encounter for other preprocedural examination (principal) ==

== ENCOUNTER → 2022-05-22 | Day surgery (SDC) | payer MEDICARE, OTHER ==
[~2022-05-22] VITALS: Ht 190.5 cm; Wt 103.3 kg
[~2022-05-22] MED LIST changes: +KETOROLAC 60MG 2ML VIAL As Ordered ONE; +LIDOCAINE 2% 100MG/5ML SDV (FOR ANES.) As Ordered ONE; +LR 1,000 ML IV SCH; +MIDAZOLAM INJ 2MG/2ML VIAL As Ordered ONE; +ONDANSETRON 4MG 2ML VIAL As Ordered ONE; +fentaNYL 100 MCG/2 ML INJECTION As Ordered ONE; +propofoL 200 MG/20 ML VIAL As Ordered ONE
[2022-05-22 07:48] VITALS: BP 176/90
== END | disposition home or self-care (01) ==
LOC: M SDC 07:20
PROVIDERS: ATTEND Orthopaedic Surgery Hand Surgery
DX: G56.01 Carpal tunnel syndrome, right upper limb (principal); Z53.29 Procedure and treatment not carried out because of patient's decision for other reasons

== ENCOUNTER → 2022-05-29 | Outpatient (CLI) | payer MEDICARE, OTHER ==
[~2022-05-29] MED LIST changes: -KETOROLAC 60MG 2ML VIAL As Ordered ONE; -LIDOCAINE 2% 100MG/5ML SDV (FOR ANES.) As Ordered ONE; -LR 1,000 ML IV SCH; -MIDAZOLAM INJ 2MG/2ML VIAL As Ordered ONE; -ONDANSETRON 4MG 2ML VIAL As Ordered ONE; -fentaNYL 100 MCG/2 ML INJECTION As Ordered ONE; -propofoL 200 MG/20 ML VIAL As Ordered ONE
== END ==
LOC: M LABSMTC 09:47
PROVIDERS: ATTEND Anesthesiology
DX: Z20.828 Contact with and (suspected) exposure to other viral communicable diseases (principal); Z11.52 Encounter for screening for COVID-19

== ENCOUNTER 2022-06-03 06:13 | Day surgery (SDC) | payer MEDICARE, OTHER ==
[~2022-06-03] VITALS: Ht 190.5 cm; Wt 92.5 kg
[2022-06-03] MEDS ORDERED: LIDOCAINE W/EPINEPHRINE 1% 20ML VIAL As Ordered ONE (07:12)
[2022-06-03] MEDS ORDERED: propofoL 200 MG/20 ML VIAL As Ordered ONE (07:22)
[2022-06-03] MEDS ORDERED: LIDOCAINE 2% 100MG/5ML SDV (FOR ANES.) As Ordered ONE (07:22)
[2022-06-03] MEDS ORDERED: fentaNYL 100 MCG/2 ML INJECTION As Ordered ONE (07:22)
[2022-06-03] MEDS ORDERED: ONDANSETRON 4MG 2ML VIAL As Ordered ONE (07:22)
[2022-06-03] MEDS ORDERED: MIDAZOLAM INJ 2MG/2ML VIAL As Ordered ONE (07:23)
[2022-06-03] MEDS ORDERED: LIDOCAINE 5% OINT 30GM TUBE As Ordered ONE (07:38)
[2022-06-03] MEDS ORDERED: ePHEDrine SULFATE 25 MG/5 ML(5MG/ML) SYRINGE As Ordered ONE (08:07)
[2022-06-03] MEDS ORDERED: oxyCODONE 5MG TAB PO PRN (08:40)
[2022-06-03] MEDS ORDERED: fentaNYL 100 MCG/2 ML INJECTION IV PRN (08:40)
[2022-06-03] MEDS ORDERED: ONDANSETRON 4MG 2ML VIAL IV PRN (08:40)
[2022-06-03 10:09] VITALS: BP 162/77
== END 2022-06-03 10:09 | disposition home or self-care (01) ==
LOC: M SDC 06:13
PROVIDERS: ATTEND Orthopaedic Surgery Hand Surgery
DX: G56.21 Lesion of ulnar nerve, right upper limb (principal); I48.91 Unspecified atrial fibrillation; I10 Essential (primary) hypertension; E11.9 Type 2 diabetes mellitus without complications; I25.10 Atherosclerotic heart disease of native coronary artery without angina pectoris; Z98.61 Coronary angioplasty status; E78.5 Hyperlipidemia, unspecified; R60.0 Localized edema; G47.33 Obstructive sleep apnea (adult) (pediatric); Z92.3 Personal history of irradiation; Z92.21 Personal history of antineoplastic chemotherapy; Z79.01 Long term (current) use of anticoagulants; Z79.84 Long term (current) use of oral hypoglycemic drugs; J44.9 Chronic obstructive pulmonary disease, unspecified; M10.9 Gout, unspecified; K21.9 Gastro-esophageal reflux disease without esophagitis; Z79.899 Other long term (current) drug therapy; N40.0 Benign prostatic hyperplasia without lower urinary tract symptoms
CPT/HCPCS: 29999; J2250; J2405; J3010

== ENCOUNTER → 2022-07-30 | Outpatient (CLI) | payer MEDICARE, OTHER | LOC: M ONCR 10:28 | PROVIDERS: ATTEND General Practice | DX: C15.9 Malignant neoplasm of esophagus, unspecified (principal); L98.9 Disorder of the skin and subcutaneous tissue, unspecified; Z85.828 Personal history of other malignant neoplasm of skin ==

== ENCOUNTER → 2022-08-19 | Outpatient (REF) | payer MEDICARE, OTHER | LOC: M LAB REF 12:14 | PROVIDERS: ATTEND Internal Medicine | DX: I50.32 Chronic diastolic (congestive) heart failure (principal) ==

== ENCOUNTER → 2022-08-27 | Outpatient (REF) | payer MEDICARE, OTHER ==
[~2022-08-27] MED LIST changes: +POTA-298 PO; -POTA1TAB14 PO
== END ==
LOC: M LAB REF 16:46
PROVIDERS: ATTEND Internal Medicine
DX: E87.6 Hypokalemia (principal); I50.32 Chronic diastolic (congestive) heart failure

== ENCOUNTER → 2022-10-24 | Outpatient (CLI) | payer MEDICARE, OTHER ==
[~2022-10-24] MED LIST changes: -K-TA10TA2 PO; +POTA-165 PO; -ROSU20TA5 PO; +ROSU20TA61 PO
== END ==
LOC: M ONCR 10:49
PROVIDERS: ATTEND General Practice
DX: C15.4 Malignant neoplasm of middle third of esophagus (principal); Z85.828 Personal history of other malignant neoplasm of skin; F17.210 Nicotine dependence, cigarettes, uncomplicated; G47.33 Obstructive sleep apnea (adult) (pediatric); G62.9 Polyneuropathy, unspecified; I51.9 Heart disease, unspecified; I48.0 Paroxysmal atrial fibrillation; I63.9 Cerebral infarction, unspecified; L57.0 Actinic keratosis; N18.9 Chronic kidney disease, unspecified; Z71.2 Person consulting for explanation of examination or test findings; Z72.89 Other problems related to lifestyle; Z77.090 Contact with and (suspected) exposure to asbestos; Z79.01 Long term (current) use of anticoagulants; Z79.51 Long term (current) use of inhaled steroids; Z79.82 Long term (current) use of aspirin; Z79.84 Long term (current) use of oral hypoglycemic drugs; Z79.899 Other long term (current) drug therapy; Z92.21 Personal history of antineoplastic chemotherapy; Z92.3 Personal history of irradiation; Z98.890 Other specified postprocedural states

== ENCOUNTER → 2022-11-06 | Outpatient (REF) | payer MEDICARE, OTHER ==
[~2022-11-06] MED LIST changes: +FINA-48 PO; -PROS5TAB PO
== END ==
LOC: M LAB REF 12:15
PROVIDERS: ATTEND Internal Medicine
DX: I50.32 Chronic diastolic (congestive) heart failure (principal)

== ENCOUNTER → 2023-01-03 | Outpatient (REF) | payer MEDICARE, OTHER ==
[~2023-01-03] MED LIST changes: +MECL-209 PO; -MECL1TAB31 PO
== END ==
LOC: M LAB REF 16:13
PROVIDERS: ATTEND Internal Medicine
DX: E87.6 Hypokalemia (principal); I50.32 Chronic diastolic (congestive) heart failure

== ENCOUNTER → 2023-02-06 | Outpatient (CLI) | payer MEDICARE, OTHER ==
[~2023-02-06] MED LIST changes: -GABA-282; +GABA-282 PO; +ISOVUE-300 61% 100ML VIAL As Ordered ONE; +JARD1TAB PO; +LIDOCAINE 1% MDV 20ML VIAL As Ordered ONE; +OXYB10TA23 PO; +RASA1TAB PO
== END ==
LOC: M RAD 09:30
PROVIDERS: ATTEND Orthopaedic Surgery
DX: M17.11 Unilateral primary osteoarthritis, right knee (principal); S83.241A Other tear of medial meniscus, current injury, right knee, initial encounter; S83.281A Other tear of lateral meniscus, current injury, right knee, initial encounter; X58.XXXA Exposure to other specified factors, initial encounter; Y92.9 Unspecified place or not applicable
CPT/HCPCS: 27369; 73580; 73701; Q9967

== ENCOUNTER 2023-03-12 06:07 | Day surgery (SDC) | payer MEDICARE, OTHER ==
[~2023-03-12] VITALS: Ht 190.5 cm; Wt 100.7 kg
[~2023-03-12 06:07] MED LIST changes: -ISOVUE-300 61% 100ML VIAL As Ordered ONE; -LIDOCAINE 1% MDV 20ML VIAL As Ordered ONE; +ceFAZolin SOD 2 GM in IV 1 EA IV ONE
[2023-03-12] MEDS ORDERED: LR 1,000 ML IV SCH ×2 (06:55→08:50)
[2023-03-12] MEDS ORDERED: propofoL 200 MG/20 ML VIAL As Ordered ONE (07:02)
[2023-03-12] MEDS ORDERED: LIDOCAINE 2% 100MG/5ML SDV (FOR ANES.) As Ordered ONE (07:02)
[2023-03-12] MEDS ORDERED: fentaNYL 100 MCG/2 ML INJECTION As Ordered ONE (07:02)
[2023-03-12] MEDS ORDERED: ONDANSETRON 4MG 2ML VIAL As Ordered ONE (07:02)
[2023-03-12] MEDS ORDERED: KETOROLAC 60MG 2ML VIAL As Ordered ONE (07:03)
[2023-03-12] MEDS ORDERED: MIDAZOLAM INJ 2MG/2ML VIAL As Ordered ONE (07:03)
[2023-03-12] MEDS ORDERED: ePHEDrine SULFATE 25 MG/5 ML(5MG/ML) SYRINGE As Ordered ONE (08:10)
[2023-03-12] MEDS ORDERED: ACETAMINOPHEN 1000MG 100ML IV BAG As Ordered ONE (08:23)
[2023-03-12] MEDS: BACITRACIN OINTMENT 30GM TUBE As Ordered ONE (08:28)
[2023-03-12] MEDS ORDERED: oxyCODONE 5MG TAB PO PRN (08:50)
[2023-03-12] MEDS ORDERED: HYDROMORPHONE HCL 0.5 MG/ 0.5 ML SYRINGE IV PRN (08:50)
[2023-03-12] MEDS ORDERED: fentaNYL 100 MCG/2 ML INJECTION IV PRN (08:50)
[2023-03-12] MEDS ORDERED: ONDANSETRON 4MG 2ML VIAL IV PRN (08:50)
[2023-03-12] MEDS: INSULIN LISPRO (NovoLOG) PER UNIT SC PRN (09:22)
[2023-03-12 10:05] VITALS: BP 159/84; TEMP 97.2; O2SAT 98
== END 2023-03-12 10:11 | disposition home or self-care (01) ==
LOC: M SDC 06:07
PROVIDERS: ATTEND Orthopaedic Surgery Hand Surgery
DX: G56.01 Carpal tunnel syndrome, right upper limb (principal); G56.21 Lesion of ulnar nerve, right upper limb; I48.91 Unspecified atrial fibrillation; I10 Essential (primary) hypertension; E11.9 Type 2 diabetes mellitus without complications; Z95.5 Presence of coronary angioplasty implant and graft; Z79.01 Long term (current) use of anticoagulants; Z79.899 Other long term (current) drug therapy; Z79.84 Long term (current) use of oral hypoglycemic drugs; I25.10 Atherosclerotic heart disease of native coronary artery without angina pectoris; Z95.0 Presence of cardiac pacemaker
CPT/HCPCS: 64719; 64721; J0131; J0665; J1100; J1815; J1885; J2405; J3010

== ENCOUNTER → 2023-04-25 | Outpatient (CLI) | payer MEDICARE, OTHER ==
[~2023-04-25] MED LIST changes: -ceFAZolin SOD 2 GM in IV 1 EA IV ONE
== END ==
LOC: M ONCR 10:44
PROVIDERS: ATTEND General Practice
DX: C15.4 Malignant neoplasm of middle third of esophagus (principal); Z85.828 Personal history of other malignant neoplasm of skin; Z71.2 Person consulting for explanation of examination or test findings; F17.210 Nicotine dependence, cigarettes, uncomplicated; Z77.090 Contact with and (suspected) exposure to asbestos; Z79.01 Long term (current) use of anticoagulants; Z79.51 Long term (current) use of inhaled steroids; Z79.84 Long term (current) use of oral hypoglycemic drugs; Z79.899 Other long term (current) drug therapy; Z92.21 Personal history of antineoplastic chemotherapy; Z92.3 Personal history of irradiation

== ENCOUNTER → 2023-06-19 | Outpatient (CLI) | payer MEDICARE, OTHER | LOC: M SOG 09:07 | PROVIDERS: ATTEND Physician Assistant | DX: M25.552 Pain in left hip (principal) ==

== ENCOUNTER → 2023-08-05 | Outpatient (REF) | payer MEDICARE, OTHER | LOC: M LAB REF 17:38 | PROVIDERS: ATTEND Internal Medicine | DX: D51.9 Vitamin B12 deficiency anemia, unspecified (principal) ==

== ENCOUNTER → 2023-08-11 | Outpatient (REF) | payer MEDICARE, OTHER ==
[~2023-08-11] MED LIST changes: +CEPH250T PO; +NAPR220C14 PO; +POTA-136 PO; +TRIA1CRE5 TOP
== END ==
LOC: M LAB REF 11:49
PROVIDERS: ATTEND Internal Medicine
DX: N32.81 Overactive bladder (principal); N18.32 Chronic kidney disease, stage 3b; Z79.899 Other long term (current) drug therapy

== ENCOUNTER 2023-08-12 09:30 | Inpatient (IN) | payer MEDICARE, OTHER ==
[~2023-08-12] VITALS: Ht 190.5 cm; Wt 94.2 kg
[~2023-08-12 09:30] MED LIST changes: -CEPH250T PO; -NAPR220C14 PO; -POTA-136 PO; -TRIA1CRE5 TOP
[2023-08-12 14:27] LABS: HEMATOCRIT 48.6 % (42.0-52.0); HEMOGLOBIN 16.5 g/dl (13.5-17.5); MEAN CORPUSCULAR HEMOGLOBIN 30.6 pg (27.0-33.0); PLATELET COUNT, AUTOMATED 209 10^3/uL (150-450); WHITE BLOOD COUNT 13.4 10^3/uL (4.0-10.0)
[2023-08-12 14:42] LABS: CALCIUM LEVEL 9.4 MG/DL (8.3-10.6); CREATININE FOR GFR 1.65 MG/DL (0.70-1.30); GLOMERULAR FILTRATION RATE 42.8 (>35); POTASSIUM SERUM 2.6 MMOL/L (3.5-5.1)
[2023-08-12] MEDS ORDERED: GLUCAGON INJ 1MG VIAL SC PRN (16:30)
[2023-08-12] MEDS ORDERED: GLUCOSE 4GM CHEW TABLET PO PRN (16:30)
[2023-08-12] MEDS ORDERED: HEPARIN SOD (PORCINE) 5000UNITS/ML 1ML VIAL/SYRINGE SC SCH (16:30)
[2023-08-12] MEDS ORDERED: DEXTROSE 50% 50ML SYRINGE IV PRN (16:30)
[2023-08-12] MEDS: KCL 10MEQ/100ML SWI (KRUN) 10 MEQ in IV 1 EA IV ONE (16:42)
[2023-08-12] MEDS: POTASSIUM CHLORIDE 10MEQ SR TABLET PO ONE ×2 (17:33→21:24)
[2023-08-12] MEDS: NS 1,000 ML IV SCH (17:34)
[2023-08-12] MEDS: INSULIN LISPRO (NovoLOG) PER UNIT SC SCH ×2 (17:35→21:00)
[2023-08-12 18:05] LABS: INR 1.35; PARTIAL THROMBOPLASTIN TIME 25.6 SECONDS (24.8-34.2); PROTHROMBIN TIME 16.2 SECONDS (12.5-14.5)
[2023-08-12 18:08] LABS: BILIRUBIN,DIRECT 0.8 MG/DL (<0.4); BILIRUBIN,TOTAL 2.4 MG/DL (0.3-1.2); CK-MB VALUE MASS 1.5 NG/ML (<3.6); MB/CK RELATIVE INDEX 0.88 (< OR =4); TOTAL PROTEIN 6.2 G/DL (5.7-8.2)
[2023-08-12] MEDS ORDERED: TRIA1CRE5 TOP (18:32)
[2023-08-12] MEDS ORDERED: CEPH250T PO (18:32)
[2023-08-12] MEDS ORDERED: POTA-136 PO (18:32)
[2023-08-12] MEDS ORDERED: HOME MED LIST COMPLETE! XX SCH ×2 (18:35→20:45)
[2023-08-12] MEDS: cefTRIAXone SOD 1 GM in D5W MINI-BAG PLUS 50 ML IV SCH (19:24)
[2023-08-12 19:43] LABS: CALCIUM LEVEL 9.3 MG/DL (8.3-10.6); CREATININE FOR GFR 1.68 MG/DL (0.70-1.30); POTASSIUM SERUM 2.8 MMOL/L (3.5-5.1)
[2023-08-12 22:00] VITALS: BP 151/90; TEMP 98.1; O2SAT 97
[2023-08-12] MEDS: SINEMET 25-100 MG TAB PO SCH (22:02)
[2023-08-12] MEDS: NICOTINE 21MG/24HR 1 EA TRANSDERMAL TD SCH (22:03)
[2023-08-13 06:00] VITALS: BP 127/53; TEMP 97.7; O2SAT 97
[2023-08-13 06:01] VITALS: BP 117/51
[2023-08-13 06:02] VITALS: BP 117/51
[2023-08-13 06:16] LABS: MEAN CORPUSCULAR HEMOGLOBIN 30.7 pg (27.0-33.0); MEAN CORPUSCULAR HGB CONC 34.5 g/dl (32.0-36.5); MEAN CORPUSCULAR VOLUME 88.8 fl (80.0-96.0); PLATELET COUNT, AUTOMATED 172 10^3/uL (150-450); RED BLOOD COUNT 4.66 10^6/uL (4.30-6.10); WHITE BLOOD COUNT 13.6 10^3/uL (4.0-10.0)
[2023-08-13 06:19] LABS: HEMATOCRIT 41.4 % (42.0-52.0); HEMOGLOBIN 14.3 g/dl (13.5-17.5)
[2023-08-13 06:32] LABS: ALBUMIN 2.5 G/DL (3.2-5.2); BILIRUBIN,TOTAL 2.4 MG/DL (0.3-1.2); CALCIUM LEVEL 8.3 MG/DL (8.3-10.6); CREATININE FOR GFR 1.71 MG/DL (0.70-1.30); GLOMERULAR FILTRATION RATE 41.1 (>35); POTASSIUM SERUM 3.4 MMOL/L (3.5-5.1); TOTAL PROTEIN 5.2 G/DL (5.7-8.2)
[2023-08-13] MEDS: POTASSIUM CHLORIDE 10MEQ SR TABLET PO ONE (08:48)
[2023-08-13] MEDS: ACETAMINOPHEN TAB 650MG DOSE (2X325MG) PO PRN (08:48)
[2023-08-13] MEDS: MAGNESIUM GLUCONATE 500 MG TAB PO SCH (08:48)
[2023-08-13] MEDS: GABAPENTIN 300 MG CAP PO SCH (08:49)
[2023-08-13] MEDS: oxyBUTYnin *DITROPAN XL* 5 MG TABCR PO SCH (08:49)
[2023-08-13] MEDS: ROSUVASTATIN 10 MG TAB (CRESTOR) PO SCH (08:50)
[2023-08-13] MEDS: METOPROLOL SUCC (TopROL XL) 50MG **XL** TAB PO SCH (08:50)
[2023-08-13] MEDS: APIXABAN 5 MG TAB (ELIQUIS) PO SCH (08:50)
[2023-08-13] MEDS: POTASSIUM CHLORIDE 10MEQ SR TABLET PO SCH (08:50)
[2023-08-13] MEDS ORDERED: NAPR220C14 PO (09:08)
[2023-08-13 09:34] LABS: OSMOLALITY URINE 387 MOSM/KG (50-1400)
[2023-08-13 09:44] LABS: SODIUM,RANDOM URINE 13 MMOL/L
[2023-08-13] MEDS: MECLIZINE 25 MG TABLET PO PRN (10:33)
[2023-08-13 13:30] LABS: CALCIUM LEVEL 7.9 MG/DL (8.3-10.6); CREATININE FOR GFR 1.66 MG/DL (0.70-1.30); GLOMERULAR FILTRATION RATE 42.5 (>35); POTASSIUM SERUM 3.4 MMOL/L (3.5-5.1)
[2023-08-13 14:00] VITALS: BP 126/56; TEMP 97.5; O2SAT 99
[2023-08-13 20:00] VITALS: BP 122/50; TEMP 97.9; O2SAT 95
[2023-08-13] MEDS: APIXABAN 2.5 MG TAB (ELIQUIS) PO SCH (20:03)
[2023-08-14] VITALS (7 sets, daily range): BP systolic 116–147; BP diastolic 51–70; TEMP 97.3–97.9; O2SAT 96–98
[2023-08-14 06:41] LABS: HEMATOCRIT 39.7 % (42.0-52.0); HEMOGLOBIN 13.7 g/dl (13.5-17.5); MEAN CORPUSCULAR HEMOGLOBIN 30.7 pg (27.0-33.0); MEAN CORPUSCULAR HGB CONC 34.5 g/dl (32.0-36.5); PLATELET COUNT, AUTOMATED 168 10^3/uL (150-450); RED BLOOD COUNT 4.46 10^6/uL (4.30-6.10); WHITE BLOOD COUNT 9.4 10^3/uL (4.0-10.0)
[2023-08-14 07:09] LABS: ALBUMIN 2.1 G/DL (3.2-5.2); BILIRUBIN,TOTAL 1.1 MG/DL (0.3-1.2); CALCIUM LEVEL 7.5 MG/DL (8.3-10.6); CREATININE FOR GFR 1.74 MG/DL (0.70-1.30); GLOMERULAR FILTRATION RATE 40.3 (>35); POTASSIUM SERUM 3.1 MMOL/L (3.5-5.1)
[2023-08-14] MEDS ORDERED: CEFD300CAP PO (07:19)
[2023-08-14] MEDS ORDERED: POTA-151 PO (07:20)
[2023-08-14] MEDS: CEFDINIR 300 MG CAP (OMNICEF) PO SCH (08:10)
[2023-08-14] MEDS: POTASSIUM CHLORIDE 10MEQ SR TABLET PO SCH ×2 (08:10→21:00)
[2023-08-14] MEDS: LEVEMIR (INSULIN DETEMIR) 1 UNITS/0.01ML SC SCH (08:12)
[2023-08-14] MEDS ORDERED: POTASSIUM CHLORIDE 10MEQ SR TABLET PO SCH (09:00)
[2023-08-14] MEDS: MECLIZINE 25 MG TABLET PO PRN (13:37)
[2023-08-15 03:00] VITALS: O2SAT 96
[2023-08-15 06:33] VITALS: BP 131/73; TEMP 97.9; O2SAT 96
[2023-08-15 06:46] LABS: HEMATOCRIT 43.8 % (42.0-52.0); HEMOGLOBIN 14.9 g/dl (13.5-17.5); MEAN CORPUSCULAR HEMOGLOBIN 30.7 pg (27.0-33.0); MEAN CORPUSCULAR VOLUME 90.3 fl (80.0-96.0); PLATELET COUNT, AUTOMATED 171 10^3/uL (150-450); RED BLOOD COUNT 4.85 10^6/uL (4.30-6.10); WHITE BLOOD COUNT 4.3 10^3/uL (4.0-10.0)
[2023-08-15 07:12] LABS: ALBUMIN 2.2 G/DL (3.2-5.2); BILIRUBIN,TOTAL 0.8 MG/DL (0.3-1.2); CALCIUM LEVEL 8.2 MG/DL (8.3-10.6); CREATININE FOR GFR 1.61 MG/DL (0.70-1.30); GLOMERULAR FILTRATION RATE 44.1 (>35); POTASSIUM SERUM 3.5 MMOL/L (3.5-5.1); TOTAL PROTEIN 5.4 G/DL (5.7-8.2)
[2023-08-15 14:00] VITALS: BP 114/54; TEMP 97.3; O2SAT 98
[2023-08-15 20:30] VITALS: BP 125/64; TEMP 97.9; O2SAT 97
[2023-08-16 04:56] VITALS: BP 112/61; TEMP 97.5; O2SAT 95
[2023-08-16 07:02] LABS: HEMATOCRIT 43.2 % (42.0-52.0); HEMOGLOBIN 14.2 g/dl (13.5-17.5); MEAN CORPUSCULAR HEMOGLOBIN 30.2 pg (27.0-33.0); MEAN CORPUSCULAR HGB CONC 32.9 g/dl (32.0-36.5); MEAN CORPUSCULAR VOLUME 91.9 fl (80.0-96.0); PLATELET COUNT, AUTOMATED 173 10^3/uL (150-450); WHITE BLOOD COUNT 3.1 10^3/uL (4.0-10.0)
[2023-08-16 07:26] LABS: BILIRUBIN,TOTAL 0.6 MG/DL (0.3-1.2); CALCIUM LEVEL 8.3 MG/DL (8.3-10.6); CREATININE FOR GFR 1.56 MG/DL (0.70-1.30); GLOMERULAR FILTRATION RATE 45.7 (>35); TOTAL PROTEIN 4.9 G/DL (5.7-8.2)
[2023-08-16 07:50] VITALS: BP 117/63
[2023-08-16 08:05] VITALS: BP 124/69; O2SAT 98
[2023-08-16 08:12] VITALS: BP 118/65
[2023-08-16 08:14] VITALS: BP 124/69
[2023-08-16 08:29] VITALS: BP_SYST 117; BP_SYST 118; BP_SYST 124; BP_DIAS 63; BP_DIAS 65; BP_DIAS 69
== END 2023-08-16 13:59 | disposition home health service (06) | DRG 690 ==
LOC: EDBD 09:30 → M ED 09:30 → M ED INP 16:28 → ENRESERV 19:30 → M MSPAV 21:29
PROVIDERS: ADMIT Internal Medicine; ATTEND Internal Medicine
DX: N39.0 Urinary tract infection, site not specified (principal); E87.1 Hypo-osmolality and hyponatremia; R42 Dizziness and giddiness; R29.6 Repeated falls; G20.A1 Parkinson's disease without dyskinesia, without mention of fluctuations; R26.9 Unspecified abnormalities of gait and mobility; F41.9 Anxiety disorder, unspecified; I95.1 Orthostatic hypotension; I48.0 Paroxysmal atrial fibrillation; E11.22 Type 2 diabetes mellitus with diabetic chronic kidney disease; E87.6 Hypokalemia; E78.5 Hyperlipidemia, unspecified; Z95.810 Presence of automatic (implantable) cardiac defibrillator; K21.9 Gastro-esophageal reflux disease without esophagitis; G47.33 Obstructive sleep apnea (adult) (pediatric); I25.10 Atherosclerotic heart disease of native coronary artery without angina pectoris; B96.20 Unspecified Escherichia coli [E. coli] as the cause of diseases classified elsewhere; F17.200 Nicotine dependence, unspecified, uncomplicated; E86.0 Dehydration; Z92.21 Personal history of antineoplastic chemotherapy; Z92.3 Personal history of irradiation; Z85.828 Personal history of other malignant neoplasm of skin; Z85.01 Personal history of malignant neoplasm of esophagus; Z99.81 Dependence on supplemental oxygen; E11.40 Type 2 diabetes mellitus with diabetic neuropathy, unspecified; Z86.73 Personal history of transient ischemic attack (TIA), and cerebral infarction without residual deficits; Z79.899 Other long term (current) drug therapy; N18.9 Chronic kidney disease, unspecified

== ENCOUNTER 2023-09-24 06:49 | Day surgery (SDC) | payer MEDICARE, OTHER ==
[~2023-09-24] VITALS: Ht 190.5 cm; Wt 94.4 kg
[~2023-09-24 06:49] MED LIST changes: +CEPH250T PO; +NAPR220C14 PO; +NS 1,000 ML IV ONE; +POTA-136 PO; +POTA-151 PO; +TRIA1CRE5 TOP
[2023-09-24] MEDS ORDERED: LIDOCAINE 2% 100MG/5ML SDV (FOR ANES.) As Ordered ONE (07:08)
[2023-09-24] MEDS ORDERED: propofoL 200 MG/20 ML VIAL As Ordered ONE (07:08)
[2023-09-24 08:14] VITALS: TEMP 97.7
[2023-09-24 08:30] VITALS: BP 144/77; O2SAT 97
== END 2023-09-24 09:00 | disposition home or self-care (01) ==
LOC: M OPP 06:49
PROVIDERS: ATTEND Internal Medicine Gastroenterology
DX: K22.89 Other specified disease of esophagus (principal); K44.9 Diaphragmatic hernia without obstruction or gangrene; R13.10 Dysphagia, unspecified; F17.290 Nicotine dependence, other tobacco product, uncomplicated; I48.91 Unspecified atrial fibrillation; I25.10 Atherosclerotic heart disease of native coronary artery without angina pectoris; E11.9 Type 2 diabetes mellitus without complications; G47.30 Sleep apnea, unspecified; Z79.01 Long term (current) use of anticoagulants; Z79.02 Long term (current) use of antithrombotics/antiplatelets; Z79.1 Long term (current) use of non-steroidal anti-inflammatories (NSAID); Z79.51 Long term (current) use of inhaled steroids; Z79.83 Long term (current) use of bisphosphonates; Z79.84 Long term (current) use of oral hypoglycemic drugs; Z79.899 Other long term (current) drug therapy; Z95.810 Presence of automatic (implantable) cardiac defibrillator

== ENCOUNTER → 2023-10-29 | Outpatient (CLI) | payer MEDICARE, OTHER ==
[~2023-10-29] MED LIST changes: +GASTROGRAFIN SOLUTION 30ML As Ordered ONE; -NS 1,000 ML IV ONE; +ONDA-284 PO; -ONDA8TAB8 PO; +TRAM-443; -TRAM37.53
== END ==
LOC: M RAD 09:21
PROVIDERS: ATTEND General Practice
DX: C15.4 Malignant neoplasm of middle third of esophagus (principal)
CPT/HCPCS: 71250; 74176; Q9963

== ENCOUNTER → 2023-11-05 | Outpatient (CLI) | payer MEDICARE, OTHER ==
[~2023-11-05] MED LIST changes: -GASTROGRAFIN SOLUTION 30ML As Ordered ONE
== END ==
LOC: M ONCR 11:20
PROVIDERS: ATTEND General Practice
DX: Z08 Encounter for follow-up examination after completed treatment for malignant neoplasm (principal); Z85.01 Personal history of malignant neoplasm of esophagus; R20.2 Paresthesia of skin; M25.561 Pain in right knee; F17.210 Nicotine dependence, cigarettes, uncomplicated; Z77.090 Contact with and (suspected) exposure to asbestos; Z79.899 Other long term (current) drug therapy; Z92.21 Personal history of antineoplastic chemotherapy; Z92.3 Personal history of irradiation; Z95.810 Presence of automatic (implantable) cardiac defibrillator

== ENCOUNTER → 2023-11-24 | Outpatient (REF) | payer MEDICARE, OTHER ==
[2023-11-24 18:43] LABS: URIC ACID 7.7 MG/DL (3.7-9.2)
[2023-11-24 18:46] LABS: PHOSPHORUS LEVEL 3.5 MG/DL (2.4-5.1); PTH INTACT 68.6 PG/ML (18.5-88.0)
== END ==
LOC: M LAB REF 16:14
PROVIDERS: ATTEND Internal Medicine
DX: N18.32 Chronic kidney disease, stage 3b (principal); M10.9 Gout, unspecified

== ENCOUNTER 2024-01-07 06:56 | Day surgery (SDC) | payer MEDICARE, OTHER ==
[~2024-01-07] VITALS: Ht 190.5 cm; Wt 95.7 kg
[~2024-01-07 06:56] MED LIST changes: +PRES10CA2 PO; -TRAM-443; +TRAM1TAB42
[2024-01-07] MEDS: NS 1,000 ML IV ONE (07:21)
[2024-01-07] MEDS ORDERED: fentaNYL 100 MCG/2 ML INJECTION As Ordered ONE (07:53)
[2024-01-07] MEDS ORDERED: LIDOCAINE 2% 100MG/5ML SDV (FOR ANES.) As Ordered ONE (08:08)
[2024-01-07] MEDS ORDERED: propofoL 200 MG/20 ML VIAL As Ordered ONE (08:08)
[2024-01-07 08:32] VITALS: TEMP 97
[2024-01-07 08:43] VITALS: BP 138/79; O2SAT 98
== END 2024-01-07 08:49 | disposition home or self-care (01) ==
LOC: M OPP 06:56
PROVIDERS: ATTEND Internal Medicine Gastroenterology
DX: K22.9 Disease of esophagus, unspecified (principal); K44.9 Diaphragmatic hernia without obstruction or gangrene; R13.10 Dysphagia, unspecified; I48.91 Unspecified atrial fibrillation; E11.9 Type 2 diabetes mellitus without complications; G47.30 Sleep apnea, unspecified; Z99.89 Dependence on other enabling machines and devices; Z95.5 Presence of coronary angioplasty implant and graft; Z95.810 Presence of automatic (implantable) cardiac defibrillator; I25.119 Atherosclerotic heart disease of native coronary artery with unspecified angina pectoris; F17.290 Nicotine dependence, other tobacco product, uncomplicated; Z79.02 Long term (current) use of antithrombotics/antiplatelets; Z79.891 Long term (current) use of opiate analgesic; Z79.899 Other long term (current) drug therapy
CPT/HCPCS: 43249; J3010

== ENCOUNTER → 2024-04-09 | Outpatient (CLI) | payer MEDICARE, OTHER ==
[~2024-04-09] MED LIST changes: +GABA-1172 PO; -GABA-282 PO; +GLIP10TA15 PO; -GLIP10TA6 PO; -ROSU20TA61 PO; +ROSU20TA86 PO; +SILD50TA PO
== END ==
LOC: M RAD 10:54
PROVIDERS: ATTEND Physician Assistant
DX: M47.896 Other spondylosis, lumbar region (principal); M54.16 Radiculopathy, lumbar region; C15.4 Malignant neoplasm of middle third of esophagus

== ENCOUNTER → 2024-04-09 | Outpatient (CLI) | payer MEDICARE, OTHER | LOC: M RAD 10:52 | PROVIDERS: ATTEND General Practice | DX: C15.4 Malignant neoplasm of middle third of esophagus (principal); M47.896 Other spondylosis, lumbar region; M54.16 Radiculopathy, lumbar region ==

== ENCOUNTER → 2024-04-13 | Outpatient (CLI) | payer MEDICARE, OTHER | LOC: M ONCR 10:24 | PROVIDERS: ATTEND General Practice | DX: Z08 Encounter for follow-up examination after completed treatment for malignant neoplasm (principal); Z85.01 Personal history of malignant neoplasm of esophagus; Z85.828 Personal history of other malignant neoplasm of skin; F17.210 Nicotine dependence, cigarettes, uncomplicated; Z92.21 Personal history of antineoplastic chemotherapy; Z92.3 Personal history of irradiation; Z79.84 Long term (current) use of oral hypoglycemic drugs; Z79.01 Long term (current) use of anticoagulants; Z79.51 Long term (current) use of inhaled steroids; Z79.899 Other long term (current) drug therapy ==

== ENCOUNTER 2024-05-03 10:50 | Day surgery (SDC) | payer MEDICARE, OTHER ==
[~2024-05-03] VITALS: Ht 190.5 cm; Wt 95.3 kg
[2024-05-03] MEDS ORDERED: LIDOCAINE 2% INJ 100 MG/5 ML SYRINGE As Ordered ONE (13:29)
[2024-05-03] MEDS ORDERED: propofoL 200 MG/20 ML VIAL As Ordered ONE (13:29)
[2024-05-03] MEDS ORDERED: LABETALOL 100MG/20ML VIAL As Ordered ONE (13:41)
[2024-05-03 13:45] VITALS: TEMP 97.6
[2024-05-03 14:09] VITALS: BP 125/65; O2SAT 97
== END 2024-05-03 14:16 | disposition home or self-care (01) ==
LOC: M OPP 10:50
PROVIDERS: ATTEND Internal Medicine Gastroenterology
DX: R13.10 Dysphagia, unspecified (principal); K22.9 Disease of esophagus, unspecified; Z79.01 Long term (current) use of anticoagulants; Z79.899 Other long term (current) drug therapy; Z95.5 Presence of coronary angioplasty implant and graft; Z95.810 Presence of automatic (implantable) cardiac defibrillator; F17.290 Nicotine dependence, other tobacco product, uncomplicated
CPT/HCPCS: 43239; 43249; 88305; J1920

== ENCOUNTER → 2024-05-21 | Outpatient (REF) | payer MEDICARE, OTHER ==
[2024-05-21 17:19] LABS: C REACTIVE PROTEIN QUANTITATIV 0.56 MG/DL (<1.0); PHOSPHORUS LEVEL 3.6 MG/DL (2.4-5.1)
[2024-05-21 18:24] LABS: PTH INTACT 75.2 PG/ML (18.5-88.0)
== END ==
LOC: M LAB REF 12:58
PROVIDERS: ATTEND Internal Medicine
DX: N18.32 Chronic kidney disease, stage 3b (principal); M54.16 Radiculopathy, lumbar region

== ENCOUNTER → 2024-06-18 | Outpatient (REF) | payer MEDICARE, OTHER | LOC: M SFHCDERM 17:00 | PROVIDERS: ATTEND Physician Assistant | DX: L57.0 Actinic keratosis (principal) ==

== ENCOUNTER → 2024-07-19 | Outpatient (REF) | payer MEDICARE, OTHER ==
[~2024-07-19] MED LIST changes: +GLIP-320 PO; -GLIP10TA18 PO
[2024-07-19 15:10] LABS: INR 1.32; PARTIAL THROMBOPLASTIN TIME 33.1 SECONDS (24.8-34.2); PROTHROMBIN TIME 16.6 SECONDS (12.5-14.5)
== END ==
LOC: M LAB REF 14:50
PROVIDERS: ATTEND Internal Medicine
DX: Z01.818 Encounter for other preprocedural examination (principal); Z79.01 Long term (current) use of anticoagulants

== ENCOUNTER → 2024-08-31 | Outpatient (REF) | payer MEDICARE, OTHER ==
[~2024-08-31] MED LIST changes: -FLOM0.4C39 PO; +TAMS-18 PO
[2024-08-31 14:28] LABS: INR 1.16; PROTHROMBIN TIME 15.1 SECONDS (12.5-14.5)
== END ==
LOC: M LAB REF 13:48
PROVIDERS: ATTEND Internal Medicine
DX: M51.27 Other intervertebral disc displacement, lumbosacral region (principal); Z79.01 Long term (current) use of anticoagulants

== ENCOUNTER → 2024-09-01 | Outpatient (CLI) | payer MEDICARE, OTHER | LOC: M WUC 12:12 | PROVIDERS: ATTEND Internal Medicine | DX: R06.02 Shortness of breath (principal) ==

== ENCOUNTER → 2024-09-13 | Outpatient (CLI) | payer MEDICARE, OTHER | LOC: M PLAIMG 12:09 | PROVIDERS: ATTEND Internal Medicine | DX: Z85.01 Personal history of malignant neoplasm of esophagus (principal); R63.4 Abnormal weight loss ==

== ENCOUNTER → 2024-11-26 | Outpatient (CLI) | payer MEDICARE, OTHER ==
[~2024-11-26] MED LIST changes: +ISOVUE-300 61% 100 ML VIAL As Ordered ONE; +LIDOCAINE 1% MDV 20 ML VIAL As Ordered ONE
== END ==
LOC: M RAD 14:49
PROVIDERS: ATTEND Student in an Organized Health Care Education/Training Program
DX: M25.511 Pain in right shoulder (principal); S46.011A Strain of muscle(s) and tendon(s) of the rotator cuff of right shoulder, initial encounter; X58.XXXA Exposure to other specified factors, initial encounter; Y92.9 Unspecified place or not applicable
CPT/HCPCS: 23350; 73201; 77002; Q9967

== ENCOUNTER → 2025-01-11 | Outpatient (CLI) | payer MEDICARE, OTHER ==
[~2025-01-11] MED LIST changes: +DICL3GEL13 TD; -DICL3GEL2 TD; -ISOVUE-300 61% 100 ML VIAL As Ordered ONE; -LIDOCAINE 1% MDV 20 ML VIAL As Ordered ONE; -SILD20TA11 PO; +SILD20TA64 PO
== END ==
LOC: M RAD 08:19
PROVIDERS: ATTEND Orthopaedic Surgery
DX: M54.12 Radiculopathy, cervical region (principal)

== ENCOUNTER 2025-01-26 16:39 | Observation (INO) | payer MEDICARE, OTHER ==
[~2025-01-26] VITALS: Ht 190.5 cm; Wt 86.4 kg
[~2025-01-26 16:39] MED LIST changes: -CLOP75TA2 PO; -LIDO1PAD TOP; -PHYS1KIT3 IM; -SPIR-10 PO
[2025-01-26 17:21] LABS: BASO # 0.1 10^3/uL (0.0-0.2); BASO % 0.9 % (0.0-1.0); EOS # 0.2 10^3/uL (0.0-0.5); EOS % 3.0 % (0.0-3.0); LYMPH # 0.9 10^3/uL (1.5-5.0); LYMPH % 14.9 % (24.0-44.0); MONO # 0.6 10^3/uL (0.0-0.8); MONO % 11.0 % (2.0-8.0); NEUTROPHILS # 4.0 10^3/uL (1.5-8.5); NEUTROPHILS % 69.8 % (36.0-66.0); PLATELET COUNT, AUTOMATED 243 10^3/uL (150-450)
[2025-01-26 18:00] LABS: CALCIUM LEVEL 9.4 MG/DL (8.3-10.6); CARBON DIOXIDE LEVEL 36.0 MMOL/L (20-31); CHLORIDE LEVEL 97.0 MMOL/L (98-107); CREATININE FOR GFR 1.8 MG/DL (0.70-1.30); GLOMERULAR FILTRATION RATE 37.1 (>35); MAGNESIUM LEVEL 1.9 MG/DL (1.8-2.4); POTASSIUM SERUM 2.7 MMOL/L (3.5-5.1); SODIUM LEVEL 143.0 MMOL/L (136-145)
[2025-01-26] MEDS: KCL 10MEQ/100ML SWI (KRUN) 10 MEQ in IV 1 EA IV ONE ×2 (18:17→19:59)
[2025-01-26] MEDS ORDERED: PHYS1KIT3 IM (23:24)
[2025-01-26] MEDS ORDERED: CLOP75TA2 PO (23:31)
[2025-01-26] MEDS ORDERED: LIDO1PAD TOP (23:31)
[2025-01-26] MEDS ORDERED: HOME MED LIST COMPLETE! XX SCH (23:35)
[2025-01-26] MEDS: KCL 40MEQ in NS 1000ML 1,000 ML IV SCH (23:35)
[2025-01-26] MEDS: MAG SULF 1GM/100ML (MAG RUN) 1 GM in IV 1 EA IV ONE (23:36)
[2025-01-26] MEDS: POTASSIUM CHLORIDE 10MEQ SR TABLET PO SCH (23:36)
[2025-01-26] MEDS ORDERED: ACETAMINOPHEN 325 MG TAB PO PRN (23:50)
[2025-01-26] MEDS ORDERED: ALBUTEROL SULFATE 2.5 MG/0.5 ML INH CONCENTRATE NEB SOLN NEB PRN (23:55)
[2025-01-27 01:35] VITALS: BP_SYST 116; BP_SYST 139; BP_SYST 142; BP_DIAS 63; BP_DIAS 71; BP_DIAS 77; TEMP 97.7; O2SAT 99
[2025-01-27] MEDS ORDERED: GLUCAGON INJ 1 MG VIAL SC PRN (01:55)
[2025-01-27] MEDS ORDERED: DEXTROSE 50% 50 ML SYRINGE IV PRN (01:55)
[2025-01-27] MEDS ORDERED: GLUCOSE 4 GM CHEW PO PRN (01:55)
[2025-01-27] MEDS: CARBIDOPA/LEVODOPA 25 MG/100 MG PO SCH (02:11)
[2025-01-27] MEDS: APIXABAN 5 MG TAB PO SCH (02:12)
[2025-01-27] MEDS: LIDOCAINE 5% PATCH TOP PRN (02:16)
[2025-01-27 05:05] VITALS: BP 134/71; TEMP 97.2; O2SAT 98
[2025-01-27] MEDS ORDERED: NICOTINE POLACRILEX 2 MG GUM PO PRN (05:35)
[2025-01-27] MEDS ORDERED: NICOTINE 7 MG/24 HR TRANSDERMAL TD PRN (05:35)
[2025-01-27 06:39] LABS: PLATELET COUNT, AUTOMATED 202 10^3/uL (150-450)
[2025-01-27 07:13] LABS: CALCIUM LEVEL 8.3 MG/DL (8.3-10.6); CARBON DIOXIDE LEVEL 33.0 MMOL/L (20-31); CHLORIDE LEVEL 104.0 MMOL/L (98-107); CREATININE FOR GFR 1.54 MG/DL (0.70-1.30); GLOMERULAR FILTRATION RATE 44.8 (>35); MAGNESIUM LEVEL 2.0 MG/DL (1.8-2.4); POTASSIUM SERUM 3.3 MMOL/L (3.5-5.1); SODIUM LEVEL 142.0 MMOL/L (136-145)
[2025-01-27] MEDS: TIOTROPIUM BROM 2.5MCG/ACTUATION 4GM INH INH SCH (07:34)
[2025-01-27] MEDS: SYMBICORT 160/4.5MCG INHALER 6GM INH SCH (07:34)
[2025-01-27 07:58] VITALS: BP 138/76; TEMP 97.7; O2SAT 98
[2025-01-27] MEDS: ROSUVASTATIN 10 MG TAB PO SCH (08:02)
[2025-01-27] MEDS: POTASSIUM CHLORIDE 10MEQ SR TABLET PO ONE (08:02)
[2025-01-27] MEDS: INSULIN LISPRO (NovoLOG) PER UNIT SC SCH (08:02)
[2025-01-27] MEDS: MAGNESIUM GLUCONATE 500 MG TAB PO SCH (08:03)
[2025-01-27] MEDS: CLOPIDOGREL 75 MG TAB PO SCH (08:03)
[2025-01-27] MEDS: oxyBUTYnin *XL* 5 MG TAB PO SCH (08:03)
[2025-01-27 08:04] VITALS: BP 138/76
[2025-01-27] MEDS: UNRESOLVED PATIENT OWN MED ORDER XX SCH (08:04)
[2025-01-27] MEDS: METOPROLOL SUCC. 50 MG *XL* TAB PO SCH (08:04)
[2025-01-27] MEDS ORDERED: ENTER DRUG NAME HERE (PATIENT'S OWN MED) PO SCH (09:00)
[2025-01-27] MEDS ORDERED: TAMSULOSIN 0.4 MG CAP PO SCH (09:00)
[2025-01-27] MEDS ORDERED: SPIR-10 PO (10:53)
[2025-01-27] MEDS: POTASSIUM CHLORIDE 10MEQ SR TABLET PO SCH (11:14)
[2025-01-27 11:43] LABS: MAGNESIUM LEVEL 2.0 MG/DL (1.8-2.4); POTASSIUM SERUM 3.7 MMOL/L (3.5-5.1)
[2025-01-27] MEDS ORDERED: INSULIN LISPRO (NovoLOG) PER UNIT SC SCH (21:00)
[2025-01-27] MEDS ORDERED: FINASTERIDE 5 MG TAB PO SCH (21:00)
== END 2025-01-27 11:45 | disposition home or self-care (01) ==
LOC: M ED 16:39 → M ED INP 16:40 → M MSPAV 01-27 01:25
PROVIDERS: ADMIT Student in an Organized Health Care Education/Training Program; ATTEND General Practice
DX: E87.6 Hypokalemia (principal); G20.A1 Parkinson's disease without dyskinesia, without mention of fluctuations; I95.1 Orthostatic hypotension; N18.9 Chronic kidney disease, unspecified; I25.10 Atherosclerotic heart disease of native coronary artery without angina pectoris; G47.33 Obstructive sleep apnea (adult) (pediatric); I48.0 Paroxysmal atrial fibrillation; E11.42 Type 2 diabetes mellitus with diabetic polyneuropathy; E11.22 Type 2 diabetes mellitus with diabetic chronic kidney disease; F41.9 Anxiety disorder, unspecified; E78.5 Hyperlipidemia, unspecified; K21.9 Gastro-esophageal reflux disease without esophagitis; F17.290 Nicotine dependence, other tobacco product, uncomplicated; E83.42 Hypomagnesemia; I12.9 Hypertensive chronic kidney disease with stage 1 through stage 4 chronic kidney disease, or unspecified chronic kidney disease; J44.9 Chronic obstructive pulmonary disease, unspecified; G89.29 Other chronic pain; T50.2X5A Adverse effect of carbonic-anhydrase inhibitors, benzothiadiazides and other diuretics, initial encounter; N40.0 Benign prostatic hyperplasia without lower urinary tract symptoms; Z71.6 Tobacco abuse counseling; Z71.41 Alcohol abuse counseling and surveillance of alcoholic; Z66 Do not resuscitate; Z79.01 Long term (current) use of anticoagulants; Z79.899 Other long term (current) drug therapy; Z86.73 Personal history of transient ischemic attack (TIA), and cerebral infarction without residual deficits; Z95.810 Presence of automatic (implantable) cardiac defibrillator; Z92.3 Personal history of irradiation; Z86.003 Personal history of in-situ neoplasm of oral cavity, esophagus and stomach; Z92.21 Personal history of antineoplastic chemotherapy; Z85.828 Personal history of other malignant neoplasm of skin; Z96.641 Presence of right artificial hip joint
CPT/HCPCS: 36415; 71045; 80048; 82330; 83735; 83880; 84132; 85025; 85027; 93005; 94640; 96365; 96366; 96367; 97161; 97165; 97530; 99285; G0378; J1815; J3475

== ENCOUNTER → 2025-01-26 | Outpatient (REF) | payer MEDICARE, OTHER ==
[~2025-01-26] MED LIST changes: +CLOP75TA2 PO; +LIDO1PAD TOP; +PHYS1KIT3 IM; +SPIR-10 PO
== END ==
LOC: M LAB REF 14:17
DX: I50.32 Chronic diastolic (congestive) heart failure (principal)

== ENCOUNTER → 2025-02-03 | Outpatient (REF) | payer MEDICARE, OTHER ==
[~2025-02-03] MED LIST changes: +CLOP75TA2 PO; +LIDO1PAD TOP; +PHYS1KIT3 IM; +SPIR-10 PO
[2025-02-03 12:34] LABS: INR 1.14
== END ==
LOC: M LAB REF 12:18
PROVIDERS: ATTEND Internal Medicine
DX: Z01.812 Encounter for preprocedural laboratory examination (principal)

== ENCOUNTER → 2025-02-03 | Outpatient (CLI) | payer MEDICARE, OTHER | LOC: M PLAIMG 10:14 | PROVIDERS: ATTEND Registered Nurse | DX: Z01.812 Encounter for preprocedural laboratory examination (principal); R06.02 Shortness of breath; I34.0 Nonrheumatic mitral (valve) insufficiency; I35.1 Nonrheumatic aortic (valve) insufficiency ==

== ENCOUNTER → 2025-02-14 | Outpatient (REF) | payer MEDICARE, OTHER | LOC: M LAB REF 17:16 | PROVIDERS: ATTEND Internal Medicine | DX: I50.32 Chronic diastolic (congestive) heart failure (principal) ==